=== PATIENT | female | born 1980 | race Caucasian/White ===

== ENCOUNTER 2021-01-11 19:35 | Emergency (ER) | payer OTHER ==
[2021-01-11 19:41] VITALS: TEMP 98.1
[2021-01-11] MEDS ORDERED: ONDANSETRON 4 MG/2 ML VIAL IVP STA (19:49)
[2021-01-11] MEDS ORDERED: SODIUM CHLORIDE 0.9% 500 ML 500 ML IV STA (19:49)
[2021-01-11] MEDS ORDERED: KETOROLAC 15 MG/ML 1 ML VIAL IVP STA (19:49)
[2021-01-11] MEDS ORDERED: PANTOPRAZOLE 40 MG/10 ML VIAL IVP STA (19:49)
[2021-01-11] MEDS ORDERED: SODIUM CHLORIDE 0.9% 1,000 ML IV STA (19:49)
--- NOTE | 2021-01-11 19:50 | ED ---
Abdominal Pain HPI - General Chief Complaint: Abdominal Pain Stated Complaint: ABD pain,Head pain Time Seen by Provider: 01/11/21 19:42 Source: patient Mode of arrival: wheelchair - History of Present Illness Initial Comments: 40-year-old female presents to emergency Department with a chief complaint of acute nausea vomiting. Patient states 2 nights ago she ate not thoroughly cooked pork chops. Patient states she began to develop symptoms several hours after. Patient reports she has been vomiting since then. Reports nausea with multiple episodes of nonbilious vomiting but denies any diarrhea. Also reports epigastric and left upper quadrant abdominal pain after vomiting episodes. She does report a headache from the vomiting is well. She reports decreased appetite and oral intake. She denies any chest pain or shortness of breath. She denies any urinary or vaginal symptoms. - Related Data Home Medications Medication Instructions Recorded Confirmed Acetaminophen Tab [Tylenol Tab] 1,000 mg PO Q6HR PRN 01/11/21 01/11/21 Previous Rx's Medication Instructions Recorded Ondansetron Odt [Zofran Odt] 4 mg PO Q8HR PRN #30 tab 01/11/21 Allergies Allergy/AdvReac Type Severity Reaction Status Date / Time ibuprofen [From Motrin] AdvReac ULCERS Verified 01/11/21 20:11 Review of Systems ROS Statement: Those systems with pertinent positive or pertinent negative responses have been documented in the HPI. ROS Other: All systems not noted in ROS Statement are negative. Past Medical History Past Medical History: No Reported History History of Any Multi-Drug Resistant Organisms: None Reported Additional Past Surgical History / Comment(s): ankle surgery, laparoscopy. Past Psychological History: No Psychological Hx Reported Smoking Status: Current every day smoker Past Alcohol Use History: None Reported Past Drug Use History: None Reported General Exam Limitations: no limitations General appearance: alert, in no apparent distress Head exam: Present: atraumatic, normocephalic, normal inspection Eye exam: Present: normal appearance, PERRL, EOMI Pupils: Present: normal accommodation ENT exam: Present: normal exam, normal oropharynx, mucous membranes moist Neck exam: Present: normal inspection, full ROM. Absent: tenderness, lymphadenopathy Respiratory exam: Present: normal lung sounds bilaterally. Absent: respiratory distress, wheezes, rales Cardiovascular Exam: Present: regular rate, normal rhythm, normal heart sounds. Absent: systolic murmur GI/Abdominal exam: Present: soft, tenderness (Mild, left upper quadrant tendern ess). Absent: distended Extremities exam: Present: normal inspection, full ROM, normal capillary refill. Absent: tenderness Back exam: Present: normal inspection, full ROM Neurological exam: Present: alert, oriented X3 Psychiatric exam: Present: normal affect, normal mood Skin exam: Present: warm, dry, intact, normal color Course Vital Signs 01/11/21 01/11/21 01/11/21 19:37 20:45 21:47 Temperature 98.1 F Pulse Rate 52 L 50 L 57 L Respiratory 18 20 20 Rate Blood Pressure 149/88 140/76 142/76 O2 Sat by Pulse 97 100 100 Oximetry Medical Decision Making - Medical Decision Making 40-year-old male presents to the emergency room with a chief complaint of nausea or vomiting. Physical examination, left upper quadrant tenderness likely secondary to vomiting. Laboratory work shows mild leukocytosis, likely reactive from the vomiting. Patient was given antiemetics, analgesia and IV fluids. On reevaluation, patient reports improvement of symptoms. I will discharge her with Tylenol 3 starter pack and Zofran. I will give her prescriptions for Zofran as well. I suspect food poisoning after eating the uncooked meat. Strict return parameters were thoroughly discussed with patient is an attending agreeable. Case discussed with - Lab Data Result diagrams: 01/11/21 20:00 01/11/21 20:00 Lab Results 01/11/21 01/11/21 01/11/21 Range/Units 20:00 20:00 20:00 WBC 11.0 H (3.8-10.6) k/uL RBC 4.73 (3.80-5.40) m/uL Hgb 15.9 (11.4-16.0) gm/dL Hct 45.1 (34.0-46.0) % MCV 95.4 (80.0-100.0) fL MCH 33.7 (25.0-35.0) pg MCHC 35.3 (31.0-37.0) g/dL RDW 12.2 (11.5-15.5) % Plt Count 219 (150-450) k/uL MPV 8.2 Neutrophils % 66 % Lymphocytes % 27 % Monocytes % 4 % Eosinophils % 2 % Basophils % 1 % Neutrophils # 7.3 (1.3-7.7) k/uL Lymphocytes # 2.9 (1.0-4.8) k/uL Monocytes # 0.4 (0-1.0) k/uL Eosinophils # 0.2 (0-0.7) k/uL Basophils # 0.1 (0-0.2) k/uL Sodium 137 (137-145) mmol/L Potassium 3.7 (3.5-5.1) mmol/L Chloride 107 (98-107) mmol/L Carbon Dioxide 24 (22-30) mmol/L Anion Gap 6 mmol/L BUN 9 (7-17) mg/dL Creatinine 0.69 (0.52-1.04) mg/dL Est GFR (CKD-EPI)AfAm >90 (>60 ml/min/1.73 sqM) Est GFR (CKD-EPI)NonAf >90 (>60 ml/min/1.73 sqM) Glucose 95 (74-99) mg/dL Calcium 9.4 (8.4-10.2) mg/dL Total Bilirubin 0.3 (0.2-1.3) mg/dL AST 21 (14-36) U/L ALT 17 (4-34) U/L Alkaline Phosphatase 62 (38-126) U/L Total Protein 7.4 (6.3-8.2) g/dL Albumin 4.5 (3.5-5.0) g/dL Lipase 48 (23-300) U/L Urine Color Light Yellow Urine Appearance Clear (Clear) Urine pH 7.0 (5.0-8.0) Ur Specific [place] 1.010 (1.001-1.035) Urine Protein Negative (Negative) Urine Glucose (UA) Negative (Negative) Urine Ketones Negative (Negative) Urine Blood Negative (Negative) Urine Nitrite Negative (Negative) Urine Bilirubin Negative (Negative) Urine Urobilinogen <2.0 (<2.0) mg/dL Ur Leukocyte Esterase Negative (Negative) Urine HCG, Qual (Not Detectd) 01/11/21 Range/Units 20:13 WBC (3.8-10.6) k/uL RBC (3.80-5.40) m/uL Hgb (11.4-16.0) gm/dL Hct (34.0-46.0) % MCV (80.0-100.0) fL MCH (25.0-35.0) pg MCHC (31.0-37.0) g/dL RDW (11.5-15.5) % Plt Count (150-450) k/uL MPV Neutrophils % % Lymphocytes % % Monocytes % % Eosinophils % % Basophils % % Neutrophils # (1.3-7.7) k/uL Lymphocytes # (1.0-4.8) k/uL Monocytes # (0-1.0) k/uL Eosinophils # (0-0.7) k/uL Basophils # (0-0.2) k/uL Sodium (137-145) mmol/L Potassium (3.5-5.1) mmol/L Chloride (98-107) mmol/L Carbon Dioxide (22-30) mmol/L Anion Gap mmol/L BUN (7-17) mg/dL Creatinine (0.52-1.04) mg/dL Est GFR (CKD-EPI)AfAm (>60 ml/min/1.73 sqM) Est GFR (CKD-EPI)NonAf (>60 ml/min/1.73 sqM) Glucose (74-99) mg/dL Calcium (8.4-10.2) mg/dL Total Bilirubin (0.2-1.3) mg/dL AST (14-36) U/L ALT (4-34) U/L Alkaline Phosphatase (38-126) U/L Total Protein (6.3-8.2) g/dL Albumin (3.5-5.0) g/dL Lipase (23-300) U/L Urine Color Urine Appearance (Clear) Urine pH (5.0-8.0) Ur Specific [place] (1.001-1.035) Urine Protein (Negative) Urine Glucose (UA) (Negative) Urine Ketones (Negative) Urine Blood (Negative) Urine Nitrite (Negative) Urine Bilirubin (Negative) Urine Urobilinogen (<2.0) mg/dL Ur Leukocyte Esterase (Negative) Urine HCG, Qual Not Detected (Not Detectd) Disposition Clinical Impression: Food poisoning, Nausea & vomiting Disposition: HOME SELF-CARE Condition: Stable Instructions (If sedation given, give patient instructions): Food Poisoning (ED) Additional Instructions: Follow a bananas, rice, applesauce and toast diet if she developed diarrhea. Drink plenty of fluids. Return to emergency department if symptoms worsen. Take prescribed medication as directed. Prescriptions: Ondansetron Odt [Zofran Odt] 4 mg PO Q8HR PRN #30 tab PRN Reason: Nausea Is patient prescribed a controlled substance at d/c from ED?: No Referrals: Nery Pratt DO [Primary Care Provider] - 1-2 days Time of Disposition: 22:10
[2021-01-11] MEDS ORDERED: DICYCLOMINE 10 MG/ML 2 ML AMP IM STA (20:14)
[2021-01-11 20:17] LABS: Appearance,Urine Clear (Clear); Basophils # (A) 0.1 k/uL (0-0.2); Basophils % (A) 1 %; Bilirubin,Urine Negative (Negative); Blood,Urine Negative (Negative); Color,Urine Light Yellow; Eosinophils # (A) 0.2 k/uL (0-0.7); Eosinophils % (A) 2 %; Glucose,Urine (UA) Negative (Negative); HCT 45.1 % (34.0-46.0); HGB 15.9 gm/dL (11.4-16.0); Ketones,Urine Negative (Negative); Leukocyte Esterase,Urine Negative (Negative); Lymphocytes # (A) 2.9 k/uL (1.0-4.8); Lymphocytes % (A) 27 %; MCH 33.7 pg (25.0-35.0); MCHC 35.3 g/dL (31.0-37.0); MCV 95.4 fL (80.0-100.0); Mean Platelet Volume 8.2; Monocytes # (A) 0.4 k/uL (0-1.0); Monocytes % (A) 4 %; Neutrophils # (A) 7.3 k/uL (1.3-7.7); Neutrophils % (A) 66 %; Nitrite,Urine Negative (Negative); Platelet Count 219 k/uL (150-450); Protein,Urine Negative (Negative); RBC 4.73 m/uL (3.80-5.40); RDW 12.2 % (11.5-15.5); Urobilinogen,Urine <2.0 mg/dL (<2.0)
[2021-01-11 20:25] LABS: ALT 17 U/L (4-34); AST 21 U/L (14-36); African American GFR (CKD) >90 (>60 ml/min/1.73 sqM); Albumin 4.5 g/dL (3.5-5.0); Alkaline Phosphatase 62 U/L (38-126); Anion Gap 6 mmol/L; Blood Urea Nitrogen 9 mg/dL (7-17); Calcium 9.4 mg/dL (8.4-10.2); Carbon Dioxide 24 mmol/L (22-30); Chloride 107 mmol/L (98-107); Glucose 95 mg/dL (74-99); Lipase 48 U/L (23-300); Non-African American GFR(CKD) >90 (>60 ml/min/1.73 sqM); Potassium 3.7 mmol/L (3.5-5.1); Sodium 137 mmol/L (137-145); Total Bilirubin 0.3 mg/dL (0.2-1.3); Total Protein 7.4 g/dL (6.3-8.2)
[2021-01-11] MEDS ORDERED: MORPHINE SULFATE 4 MG/ML SYRINGE IVP STA (21:33)
[2021-01-11 21:53] VITALS: RESP 20
[2021-01-11 21:54] VITALS: BP 142/76; PULSE 57
[2021-01-11] MEDS ORDERED: ACET/COD 300 MG/30 MG STARTER PACK 6 TAB BTL PO STA (22:08)
[2021-01-11] MEDS ORDERED: ONDANSETRON 4 MG ODT STARTER PACK 2 TAB BTL PO STA (22:08)
== END 2021-01-11 22:22 | disposition home or self-care (01) ==
LOC: EC 19:35
DX: A05.9 Bacterial foodborne intoxication, unspecified (principal); F17.200 Nicotine dependence, unspecified, uncomplicated
CPT/HCPCS: 36415; 80053; 83690; 85025; 81003; 81025; 99284; 96374; 96375 ×2; 96372; J2270; J0500; J2405; J1885; S0119; C9113

== ENCOUNTER 2021-01-15 20:29 | Emergency (ER) | payer OTHER ==
[2021-01-15] MEDS ORDERED: ONDANSETRON 4 MG/2 ML VIAL IVP STA (20:51)
[2021-01-15] MEDS ORDERED: SODIUM CHLORIDE 0.9% 500 ML 500 ML IV STA ×2 (20:51→21:34)
[2021-01-15] MEDS ORDERED: MORPHINE SULFATE 4 MG/ML SYRINGE IV STA (21:01)
--- NOTE | 2021-01-15 21:07 | ED ---
Abdominal Pain HPI - General Chief Complaint: Abdominal Pain Stated Complaint: abd pain Time Seen by Provider: 01/15/21 20:49 Source: patient Mode of arrival: ambulatory Limitations: no limitations - History of Present Illness Initial Comments: Patient is a 40-year-old woman who presents to be evaluated for diffuse abdominal pain recurred about an hour ago. Patient had been seen here January 11 for similar complaint. She reportedly had eaten pork chops that had not been fully cooked. Patient had been feeling a little better over the past few days but she attempted to go back to her normal diet this evening and had onset of pain about an hour ago. She also has had multiple episodes of nausea and vomiting. No blood or coffee-ground emesis. No change in urination or bowel movements. Patient currently having menstrual cycle. MD Complaint: abdominal pain Onset/Timin -: hour(s) Location: diffuse Radiation: none Severity: severe Quality: cramping, sharp Consistency: colicky Improves With: nothing Worsens With: nothing Associated Symptoms: nausea, vomiting - Related Data LMP (females 10-50): this week Patient : No Home Medications Medication Instructions Recorded Confirmed Acetaminophen Tab [Tylenol Tab] 1,000 mg PO Q6HR PRN 01/11/21 01/15/21 Previous Rx's Medication Instructions Recorded Ondansetron Odt [Zofran Odt] 4 mg PO Q8HR PRN #30 tab 01/11/21 Ondansetron Odt [Zofran ODT] 4 mg PO Q8HR PRN #10 tab 01/15/21 Allergies Allergy/AdvReac Type Severity Reaction Status Date / Time ibuprofen [From Motrin] AdvReac ULCERS Verified 01/15/21 21:51 Review of Systems ROS Statement: Those systems with pertinent positive or pertinent negative responses have been documented in the HPI. ROS Other: All systems not noted in ROS Statement are negative. Constitutional: Denies: fever, chills Respiratory: Denies: cough, dyspnea Cardiovascular: Denies: chest pain, palpitations Gastrointestinal: Reports: abdominal pain, nausea, vomiting. Denies: diarrhea, constipation, hematemesis, melena, hematochezia Genitourinary: Denies: dysuria, hematuria Musculoskeletal: Denies: back pain Skin: Denies: rash Neurological: Denies: headache, weakness, numbness Past Medical History Past Medical History: No Reported History History of Any Multi-Drug Resistant Organisms: None Reported Additional Past Surgical History / Comment(s): ankle surgery, laparoscopy. Past Psychological History: No Psychological Hx Reported Smoking Status: Current every day smoker Past Alcohol Use History: None Reported Past Drug Use History: None Reported General Exam Limitations: no limitations General appearance: alert, in distress Head exam: Present: atraumatic, normocephalic Eye exam: Present: normal appearance. Absent: scleral icterus, conjunctival injection ENT exam: Present: mucous membranes dry Neck exam: Present: normal inspection Respiratory exam: Present: normal lung sounds bilaterally. Absent: respiratory distress, wheezes, rales, rhonchi, stridor Cardiovascular Exam: Present: regular rate, normal rhythm, normal heart sounds. Absent: systolic murmur, diastolic murmur, rubs, gallop GI/Abdominal exam: Present: soft, tenderness. Absent: distended, guarding, rebound, rigid, mass, pulsatile mass, hernia Extremities exam: Present: normal inspection, normal capillary refill. Absent: pedal edema, calf tenderness Back exam: Present: normal inspection. Absent: CVA tenderness (R), CVA tenderness (L) Neurological exam: Present: alert Skin exam: Present: warm, intact, normal color, diaphoretic. Absent: rash Course Vital Signs 01/15/21 01/15/21 20:31 22:59 Temperature 97 F L 97.6 F Pulse Rate 78 58 L Respiratory 16 18 Rate Blood Pressure 159/92 114/71 O2 Sat by Pulse 99 100 Oximetry Medical Decision Making - Lab Data Result diagrams: 01/15/21 21:06 01/15/21 21:06 Lab Results 01/15/21 01/15/21 01/15/21 Range/Units 21:06 21:06 21:06 WBC 12.3 H (3.8-10.6) k/uL RBC 4.69 (3.80-5.40) m/uL Hgb 15.4 (11.4-16.0) gm/dL Hct 45.2 (34.0-46.0) % MCV 96.2 (80.0-100.0) fL MCH 32.9 (25.0-35.0) pg MCHC 34.2 (31.0-37.0) g/dL RDW 13.1 (11.5-15.5) % Plt Count 239 (150-450) k/uL MPV 8.2 Neutrophils % 69 % Lymphocytes % 22 % Monocytes % 5 % Eosinophils % 1 % Basophils % 1 % Neutrophils # 8.4 H (1.3-7.7) k/uL Lymphocytes # 2.7 (1.0-4.8) k/uL Monocytes # 0.6 (0-1.0) k/uL Eosinophils # 0.1 (0-0.7) k/uL Basophils # 0.1 (0-0.2) k/uL Sodium 139 (137-145) mmol/L Potassium 3.4 L (3.5-5.1) mmol/L Chloride 106 (98-107) mmol/L Carbon Dioxide 21 L (22-30) mmol/L Anion Gap 12 mmol/L BUN 12 (7-17) mg/dL Creatinine 0.87 (0.52-1.04) mg/dL Est GFR (CKD-EPI)AfAm >90 (>60 ml/min/1.73 sqM) Est GFR (CKD-EPI)NonAf 83 (>60 ml/min/1.73 sqM) Glucose 119 H (74-99) mg/dL Plasma Lactic Acid [place] 1.8 (0.7-2.0) mmol/L Calcium 10.0 (8.4-10.2) mg/dL Total Bilirubin 0.4 (0.2-1.3) mg/dL AST 26 (14-36) U/L ALT 19 (4-34) U/L Alkaline Phosphatase 63 (38-126) U/L Total Protein 7.6 (6.3-8.2) g/dL Albumin 4.7 (3.5-5.0) g/dL Amylase 73 (30-110) U/L Lipase 47 (23-300) U/L Urine Color Urine Appearance (Clear) Urine pH (5.0-8.0) Ur Specific [place] (1.001-1.035) Urine Protein (Negative) Urine Glucose (UA) (Negative) Urine Ketones (Negative) Urine Blood (Negative) Urine Nitrite (Negative) Urine Bilirubin (Negative) Urine Urobilinogen (<2.0) mg/dL Ur Leukocyte Esterase (Negative) Urine RBC (0-5) /hpf Urine WBC (0-5) /hpf Ur Squamous Epith Cells (0-4) /hpf Urine Bacteria (None) /hpf Urine Mucus (None) /hpf Urine HCG, Qual (Not Detectd) 01/15/21 01/15/21 Range/Units 23:20 23:20 WBC (3.8-10.6) k/uL RBC (3.80-5.40) m/uL Hgb (11.4-16.0) gm/dL Hct (34.0-46.0) % MCV (80.0-100.0) fL MCH (25.0-35.0) pg MCHC (31.0-37.0) g/dL RDW (11.5-15.5) % Plt Count (150-450) k/uL MPV Neutrophils % % Lymphocytes % % Monocytes % % Eosinophils % % Basophils % % Neutrophils # (1.3-7.7) k/uL Lymphocytes # (1.0-4.8) k/uL Monocytes # (0-1.0) k/uL Eosinophils # (0-0.7) k/uL Basophils # (0-0.2) k/uL Sodium (137-145) mmol/L Potassium (3.5-5.1) mmol/L Chloride (98-107) mmol/L Carbon Dioxide (22-30) mmol/L Anion Gap mmol/L BUN (7-17) mg/dL Creatinine (0.52-1.04) mg/dL Est GFR (CKD-EPI)AfAm (>60 ml/min/1.73 sqM) Est GFR (CKD-EPI)NonAf (>60 ml/min/1.73 sqM) Glucose (74-99) mg/dL Plasma Lactic Acid [place] (0.7-2.0) mmol/L Calcium (8.4-10.2) mg/dL Total Bilirubin (0.2-1.3) mg/dL AST (14-36) U/L ALT (4-34) U/L Alkaline Phosphatase (38-126) U/L Total Protein (6.3-8.2) g/dL Albumin (3.5-5.0) g/dL Amylase (30-110) U/L Lipase (23-300) U/L Urine Color Yellow Urine Appearance Clear (Clear) Urine pH 8.0 (5.0-8.0) Ur Specific [place] 1.023 (1.001-1.035) Urine Protein 1+ H (Negative) Urine Glucose (UA) Negative (Negative) Urine Ketones 2+ H (Negative) Urine Blood Large H (Negative) Urine Nitrite Negative (Negative) Urine Bilirubin Negative (Negative) Urine Urobilinogen 2.0 (<2.0) mg/dL Ur Leukocyte Esterase Negative (Negative) Urine RBC 59 H (0-5) /hpf Urine WBC 7 H (0-5) /hpf Ur Squamous Epith Cells 3 (0-4) /hpf Urine Bacteria Rare H (None) /hpf Urine Mucus Rare H (None) /hpf Urine HCG, Qual Not Detected (Not Detectd) Disposition Clinical Impression: Nausea & vomiting, Abdominal pain Disposition: HOME SELF-CARE Condition: Good Instructions (If sedation given, give patient instructions): Abdominal Pain (ED) Prescriptions: Ondansetron Odt [Zofran ODT] 4 mg PO Q8HR PRN #10 tab PRN Reason: Nausea Is patient prescribed a controlled substance at d/c from ED?: No Referrals: Nery Pratt DO [Primary Care Provider] - 1-2 days
[2021-01-15 21:16] LABS: Basophils # (A) 0.1 k/uL (0-0.2); Basophils % (A) 1 %; Eosinophils # (A) 0.1 k/uL (0-0.7); Eosinophils % (A) 1 %; HCT 45.2 % (34.0-46.0); HGB 15.4 gm/dL (11.4-16.0); Lymphocytes # (A) 2.7 k/uL (1.0-4.8); Lymphocytes % (A) 22 %; MCH 32.9 pg (25.0-35.0); MCHC 34.2 g/dL (31.0-37.0); MCV 96.2 fL (80.0-100.0); Mean Platelet Volume 8.2; Monocytes # (A) 0.6 k/uL (0-1.0); Monocytes % (A) 5 %; Neutrophils # (A) 8.4 k/uL (1.3-7.7); Neutrophils % (A) 69 %; Platelet Count 239 k/uL (150-450); RBC 4.69 m/uL (3.80-5.40); RDW 13.1 % (11.5-15.5); WBC 12.3 k/uL (3.8-10.6)
[2021-01-15 21:25] LABS: ALT 19 U/L (4-34); AST 26 U/L (14-36); African American GFR (CKD) >90 (>60 ml/min/1.73 sqM); Albumin 4.7 g/dL (3.5-5.0); Alkaline Phosphatase 63 U/L (38-126); Amylase 73 U/L (30-110); Anion Gap 12 mmol/L; Blood Urea Nitrogen 12 mg/dL (7-17); Carbon Dioxide 21 mmol/L (22-30); Chloride 106 mmol/L (98-107); Glucose 119 mg/dL (74-99); Lipase 47 U/L (23-300); Non-African American GFR(CKD) 83 (>60 ml/min/1.73 sqM); Potassium 3.4 mmol/L (3.5-5.1); Sodium 139 mmol/L (137-145); Total Bilirubin 0.4 mg/dL (0.2-1.3); Total Protein 7.6 g/dL (6.3-8.2)
[2021-01-15] MEDS ORDERED: HYDROmorphone 0.5 MG/0.5 ML SYRINGE IVP STA (21:34)
[2021-01-15] MEDS ORDERED: METOCLOPRAMIDE 5 MG/ML 2 ML VIAL IVP STA (21:34)
--- NOTE | 2021-01-15 22:40 | CT ---
EXAMINATION TYPE: CT abdomen pelvis wo con DATE OF EXAM: 01/15/2021 COMPARISON: None HISTORY: vomiting CT DLP: 866.3 mGycm Automated exposure control for dose reduction was used. Images obtained from the diaphragm to the floor the pelvis without contrast. Lung bases are clear. There is no pleural effusion. Heart size is normal. There is no pericardial eff usion. Liver spleen stomach pancreas gallbladder appear intact. The bile ducts are not dilated. There is no adrenal mass. Kidneys have normal size. There is no hydronephrosis. There is 2 mm calculu s interpolar left kidney. Ureters are not dilated. There is no retroperitoneal adenopathy. Bladder di stends smoothly. There is retroverted uterus. There is no free fluid in the pelvis. There are sigmoid diverticula without sign of diverticulitis. There is some air in the appendix which appears normal. There is no mesenteric edema. There is no asc ites or free air. There is no sign of a bowel obstruction. The lumbar vertebra have normal alignment. Posterior elements are intact. There is no compression fra cture. Bony pelvis is intact. The hip joints are intact. There is no hip dysplasia. IMPRESSION: Normal appendix. Nonobstructing left renal calculus. Sigmoid diverticulosis without diverticulitis.
[2021-01-15 23:09] VITALS: BP 114/71; PULSE 58; RESP 18; TEMP 97.6
[2021-01-15 23:39] LABS: Appearance,Urine Clear (Clear); Bacteria,Urine Rare /hpf; Bilirubin,Urine Negative (Negative); Blood,Urine Large (Negative); Color,Urine Yellow; Glucose,Urine (UA) Negative (Negative); Ketones,Urine 2+ (Negative); Leukocyte Esterase,Urine Negative (Negative); Mucus,Urine Rare /hpf; Nitrite,Urine Negative (Negative); Protein,Urine 1+ (Negative); RBC,Urine 59 /hpf (0-5); Specific Gravity,Urine 1.023 (1.001-1.035); Squamous Epithelial Cell,Urine 3 /hpf (0-4); WBC,Urine 7 /hpf (0-5)
[2021-01-16] MEDS ORDERED: traMADol 50 MG STARTER PACK 3 TAB BTL PO STA (00:04)
== END 2021-01-16 00:19 | disposition home or self-care (01) ==
LOC: EC 20:29
DX: R10.9 Unspecified abdominal pain (principal); R11.10 Vomiting, unspecified; F17.200 Nicotine dependence, unspecified, uncomplicated
CPT/HCPCS: 36415; 80053; 82150; 83605; 83690; 85025; 81001; 81025; 74176; 99284; 96374; 96375 ×3; 96361; J2270; J2765; J2405; J1170

== ENCOUNTER 2021-09-18 06:04 | Emergency (ER) | payer OTHER ==
[2021-09-18] MEDS ORDERED: KETOROLAC 15 MG/ML 1 ML VIAL IM STA (06:35)
[2021-09-18] MEDS ORDERED: ONDANSETRON ODT 4 MG TAB PO STA (06:36)
[2021-09-18] MEDS ORDERED: SODIUM CHLORIDE 0.9% 1,000 ML IV STA ×2 (07:42→09:11)
[2021-09-18] MEDS ORDERED: diphenhydrAMINE 50 MG/ML 1 ML VIAL IVP STA (07:42)
[2021-09-18] MEDS ORDERED: MORPHINE SULFATE 4 MG/ML SYRINGE IV STA (07:42)
[2021-09-18] MEDS ORDERED: METOCLOPRAMIDE 5 MG/ML 2 ML VIAL IVP STA (07:42)
[2021-09-18] MEDS ORDERED: FAMOTIDINE 20 MG/2 ML VIAL IV STA (07:43)
[2021-09-18 08:14] LABS: Basophils % (A) 0 %; Eosinophils # (A) 0.1 k/uL (0-0.7); Eosinophils % (A) 1 %; HCT 43.8 % (34.0-46.0); HGB 14.9 gm/dL (11.4-16.0); Lymphocytes # (A) 1.7 k/uL (1.0-4.8); Lymphocytes % (A) 10 %; MCH 32.8 pg (25.0-35.0); MCHC 34.1 g/dL (31.0-37.0); MCV 96.2 fL (80.0-100.0); Mean Platelet Volume 8.4; Monocytes # (A) 0.5 k/uL (0-1.0); Monocytes % (A) 3 %; Neutrophils # (A) 14.1 k/uL (1.3-7.7); Neutrophils % (A) 85 %; Platelet Count 288 k/uL (150-450); RBC 4.55 m/uL (3.80-5.40); RDW 12.2 % (11.5-15.5); WBC 16.6 k/uL (3.8-10.6)
[2021-09-18 08:22] LABS: HCG,Qualitative Serum Detected
--- NOTE | 2021-09-18 08:23 | XR ---
EXAMINATION TYPE: XR KUB DATE OF EXAM: 09/18/2021 COMPARISON: NONE HISTORY: Pain TECHNIQUE: One view abdominal series FINDINGS: The osseous structures are intact. The bowel gas pattern is nonspecific. Extensive retained fecal de bris throughout the colon. Lung bases clear. No suspicious calcifications overlying the renal outline . Arthropathy of the hips correlate for femoral acetabular impingement. IMPRESSION: 1. Nonspecific abdomen correlate for constipation.
[2021-09-18 08:25] LABS: INR 0.9 (<1.2); Partial Thromboplastin Time 22.5 sec (22.0-30.0); Prothrombin Time 10.2 sec (9.0-12.0)
[2021-09-18 08:28] LABS: ALT 16 U/L (4-34); AST 20 U/L (14-36); African American GFR (CKD) >90 (>60 ml/min/1.73 sqM); Albumin 4.3 g/dL (3.5-5.0); Alkaline Phosphatase 63 U/L (38-126); Amylase 67 U/L (30-110); Anion Gap 7 mmol/L; Blood Urea Nitrogen 11 mg/dL (7-17); Calcium 9.4 mg/dL (8.4-10.2); Carbon Dioxide 19 mmol/L (22-30); Chloride 110 mmol/L (98-107); Glucose 156 mg/dL (74-99); Lipase 84 U/L (23-300); Non-African American GFR(CKD) >90 (>60 ml/min/1.73 sqM); Potassium 3.7 mmol/L (3.5-5.1); Sodium 136 mmol/L (137-145); Total Bilirubin 0.9 mg/dL (0.2-1.3); Total Protein 7.4 g/dL (6.3-8.2)
--- NOTE | 2021-09-18 08:58 | ED ---
General Adult HPI - General Chief complaint: Abdominal Pain Stated complaint: Abd Pain Time Seen by Provider: 09/18/21 07:36 Source: patient, family, RN notes reviewed, old records reviewed Mode of arrival: wheelchair Limitations: no limitations - History of Present Illness Initial comments: Patient is a 41-year-old female with no syncope past medical history presents emergency Department complaining of acute onset of right lower quadrant abdominal pain associated with nonbilious nonbloody emesis. States it started approximately 3 or 4 AM. Describes it as sharp, achy in the right lower quadrant. Has not expenses pain previously. Does have a history of ovarian cysts. States it has been constant since she woke. Denies any diarrhea or concern for constipation. States she is currently on her period and having some mild vaginal bleeding. Denies any vaginal discharge. Does endorse some mild dysuria. Has no other acute complaints at this time. States she is not . No fevers or chills or sick contacts. He presents over concern for her abdominal pain. Denies any back pain. Does have a history possibly of an old kidney stone. - Related Data Previous Rx's Medication Instructions Recorded Methocarbamol [Robaxin-750] 750 mg PO BID PRN 5 Days #10 tablet 09/18/21 Ondansetron Odt [Zofran Odt] 4 mg PO Q8HR PRN #3 tab 09/18/21 [id number]/Iron/FA/O3/Dha/Epa/Fish 1 each PO DAILY #28 capsule 09/18/21 [ Multi-Dha Softgel] Allergies Allergy/AdvReac Type Severity Reaction Status Date / Time ibuprofen [From Motrin] AdvReac ULCERS Verified 09/18/21 10:33 Review of Systems ROS Statement: Those systems with pertinent positive or pertinent negative responses have been documented in the HPI. Review of Systems: CONST: Denies fever EYES: Denies blurry vision ENT: Denies nasal congestion C/V: Denies Chest pain RESP: Denies shortness of breath GI: Endorses abdominal pain : Denies dysuria SKIN: Denies rash. MSK: Denies joint pain. NEURO: Denies headache ROS Other: All systems not noted in ROS Statement are negative. Past Medical History Past Medical History: No Reported History History of Any Multi-Drug Resistant Organisms: None Reported Additional Past Surgical History / Comment(s): ankle surgery, laparoscopy. Past Psychological History: No Psychological Hx Reported Smoking Status: Current every day smoker Past Alcohol Use History: None Reported Past Drug Use History: None Reported General Exam - General Exam Comments Initial Comments: General: Appears in mild to moderate distress secondary to abdominal pain HEAD: Normal with no signs of head trauma. EYES: PERRLA, EOMI, conjunctiva normal, no discharge. ENT: Hearing grossly intact, normal oropharynx. RESPIRATORY: Clear breath sounds bilaterally. No wheezes, rales, or rhonchi. C/V: Regular rate and rhythm. S1 and S2 auscultated, no edema, peripheral pulses 2+ and intact throughout ABD: Abdomen is soft, nondistended. Patient is tender to palpation in the right lower quadrant. Little more superior to McBurney's point. No CVA tenderness to percussion. No guarding. No peritoneal signs. No rebound tenderness. EXT: Normal range of motion, no obvious deformity SKIN: No rashes or lesions observed on exposed skin. NEURO: Alert and oriented 4. No focal deficits. Limitations: no limitations Course Vital Signs 09/18/21 09/18/21 06:13 11:00 Temperature 98 F Pulse Rate 60 88 Respiratory 22 18 Rate Blood Pressure 148/98 98/54 O2 Sat by Pulse 96 98 Oximetry Medical Decision Making - Medical Decision Making Based on patient's presentation and physical exam, I'm concerned for acute intra-abdominal process for current symptoms. We'll obtain abdominal laboratory studies, as well as urine studies. We'll start with ultrasounds of the pelvis, and kidneys to evaluate for hydronephrosis or signs of renal stone as well as to evaluate for signs of ovarian torsion. She was in agreement this plan. She was symptomatically treated with a GI cocktail as well as IV morphine and 1 L fluid bolus. Laboratory studies are remarkable for mild leukocytosis of 16 which could be reactive. Lactic acid is 2.2 which is slightly elevated likely secondary dehyd ration from her nausea and vomiting. Beta-hCG is positive. I did update the patient with positive test. We will send a quantitative hCG. I will also add on a new ultrasound, she is having vaginal bleeding. She was in agreement this plan. she is resting comfortably in bed at this time.Remainder the laboratory studies are remarkable for a repeat lactic acid within normal limits at 1.2. Urinalysis shows dehydration but no signs of acute infection. Quantitative beta hCG is elevated 234. Abdominal x-ray was obtained prior to and see results. Showed nonspecific findings. Ultrasound of the bladder and kidneys revealed a tiny nonobstructing left renal calculus but nothing on the right. Appendicitis ultrasound revealed no sign of appendicitis. Appendix jewel ot be visualized. Pelvic ultrasound revealed no definitive IUP. Recommend a follow-up ultrasound as well as following up on the beta-hCG. There is also a signs consistent with a large fibroid on the right as well. Reevaluation, we discussed the ultrasound findings as well as results for laboratory studies. She is tolerating oral intake. She would like to go home. And is under control. I believe this is reasonable with close follow-up with her [facility]. They called while she was waiting in the department and have an appointment for 2 days from now. Strict return precautions for the patient. She was in agreement this plan. We discussed her diagnosis of threatened miscarriage, and she understands the need to obtain repeat beta hCG lavatory studies as well as repeat ultrasound imaging moving forward to confirm definitive IUP versus ectopic. Patient was in agreement this plan. I will provide the patient with a prescription for ODT Zofran, Robaxin, vitamins. I instructed the patient to follow up with their PCP in the next 3 days. I explained that the patient should return to the emergency department if they experience any worsening symptoms. Strict return precautions were discussed with the patient. The patient expressed understanding of these instructions. I answered all questions that the patient had. The patient was discharged home in good condition with their prescriptions and follow up information. - Lab Data Result diagrams: 09/18/21 08:00 09/18/21 08:00 Lab Results 09/18/21 09/18/21 09/18/21 Range/Units 08:00 08:00 08:00 WBC 16.6 H (3.8-10.6) k/uL RBC 4.55 (3.80-5.40) m/uL Hgb 14.9 (11.4-16.0) gm/dL Hct 43.8 (34.0-46.0) % MCV 96.2 (80.0-100.0) fL MCH 32.8 (25.0-35.0) pg MCHC 34.1 (31.0-37.0) g/dL RDW 12.2 (11.5-15.5) % Plt Count 288 (150-450) k/uL MPV 8.4 Neutrophils % 85 % Lymphocytes % 10 % Monocytes % 3 % Eosinophils % 1 % Basophils % 0 % Neutrophils # 14.1 H (1.3-7.7) k/uL Lymphocytes # 1.7 (1.0-4.8) k/uL Monocytes # 0.5 (0-1.0) k/uL Eosinophils # 0.1 (0-0.7) k/uL Basophils # 0.0 (0-0.2) k/uL PT 10.2 (9.0-12.0) sec INR 0.9 (<1.2) APTT 22.5 (22.0-30.0) sec Sodium (137-145) mmol/L Potassium (3.5-5.1) mmol/L Chloride (98-107) mmol/L Carbon Dioxide (22-30) mmol/L Anion Gap mmol/L BUN (7-17) mg/dL Creatinine (0.52-1.04) mg/dL Est GFR (CKD-EPI)AfAm (>60 ml/min/1.73 sqM) Est GFR (CKD-EPI)NonAf (>60 ml/min/1.73 sqM) Glucose (74-99) mg/dL Lactic Ac Sepsis Rflx Plasma Lactic Acid Chandrakant (0.7-2.0) mmol/L Calcium (8.4-10.2) mg/dL Total Bilirubin (0.2-1.3) mg/dL AST (14-36) U/L ALT (4-34) U/L Alkaline Phosphatase (38-126) U/L Total Protein (6.3-8.2) g/dL Albumin (3.5-5.0) g/dL Amylase (30-110) U/L Lipase (23-300) U/L HCG, Qual HCG, Quant mIU/mL Urine Color Yellow Urine Appearance Clear (Clear) Urine pH 7.0 (5.0-8.0) Ur Specific [place] 1.022 (1.001-1.035) Urine Protein Trace H (Negative) Urine Glucose (UA) 1+ H (Negative) Urine Ketones 2+ H (Negative) Urine Blood Large H (Negative) Urine Nitrite Negative (Negative) Urine Bilirubin Negative (Negative) Urine Urobilinogen <2.0 (<2.0) mg/dL Ur Leukocyte Esterase Negative (Negative) Urine RBC <1 (0-5) /hpf Urine WBC 1 (0-5) /hpf Ur Squamous Epith Cells <1 (0-4) /hpf Amorphous Sediment Occasional H (None) /hpf Urine Mucus Occasional H (None) /hpf 09/18/21 09/18/21 09/18/21 Range/Units 08:00 08:00 08:00 WBC (3.8-10.6) k/uL RBC (3.80-5.40) m/uL Hgb (11.4-16.0) gm/dL Hct (34.0-46.0) % MCV (80.0-100.0) fL MCH (25.0-35.0) pg MCHC (31.0-37.0) g/dL RDW (11.5-15.5) % Plt Count (150-450) k/uL MPV Neutrophils % % Lymphocytes % % Monocytes % % Eosinophils % % Basophils % % Neutrophils # (1.3-7.7) k/uL Lymphocytes # (1.0-4.8) k/uL Monocytes # (0-1.0) k/uL Eosinophils # (0-0.7) k/uL Basophils # (0-0.2) k/uL PT (9.0-12.0) sec INR (<1.2) APTT (22.0-30.0) sec Sodium 136 L (137-145) mmol/L Potassium 3.7 (3.5-5.1) mmol/L Chloride 110 H (98-107) mmol/L Carbon Dioxide 19 L (22-30) mmol/L Anion Gap 7 mmol/L BUN 11 (7-17) mg/dL Creatinine 0.80 (0.52-1.04) mg/dL Est GFR (CKD-EPI)AfAm >90 (>60 ml/min/1.73 sqM) Est GFR (CKD-EPI)NonAf >90 (>60 ml/min/1.73 sqM) Glucose 156 H (74-99) mg/dL Lactic Ac Sepsis Rflx Plasma Lactic Acid [place] 2.2 H* (0.7-2.0) mmol/L Calcium 9.4 (8.4-10.2) mg/dL Total Bilirubin 0.9 (0.2-1.3) mg/dL AST 20 (14-36) U/L ALT 16 (4-34) U/L Alkaline Phosphatase 63 (38-126) U/L Total Protein 7.4 (6.3-8.2) g/dL Albumin 4.3 (3.5-5.0) g/dL Amylase 67 (30-110) U/L Lipase 84 (23-300) U/L HCG, Qual Detected HCG, Quant 234.4 mIU/mL Urine Color Urine Appearance (Clear) Urine pH (5.0-8.0) Ur Specific [place] (1.001-1.035) Urine Protein (Negative) Urine Glucose (UA) (Negative) Urine Ketones (Negative) Urine Blood (Negative) Urine Nitrite (Negative) Urine Bilirubin (Negative) Urine Urobilinogen (<2.0) mg/dL Ur Leukocyte Esterase (Negative) Urine RBC (0-5) /hpf Urine WBC (0-5) /hpf Ur Squamous Epith Cells (0-4) /hpf Amorphous Sediment (None) /hpf Urine Mucus (None) /hpf 09/18/21 09/18/21 Range/Units 08:39 10:53 WBC (3.8-10.6) k/uL RBC (3.80-5.40) m/uL Hgb (11.4-16.0) gm/dL Hct (34.0-46.0) % MCV (80.0-100.0) fL MCH (25.0-35.0) pg MCHC (31.0-37.0) g/dL RDW (11.5-15.5) % Plt Count (150-450) k/uL MPV Neutrophils % % Lymphocytes % % Monocytes % % Eosinophils % % Basophils % % Neutrophils # (1.3-7.7) k/uL Lymphocytes # (1.0-4.8) k/uL Monocytes # (0-1.0) k/uL Eosinophils # (0-0.7) k/uL Basophils # (0-0.2) k/uL PT (9.0-12.0) sec INR (<1.2) APTT (22.0-30.0) sec Sodium (137-145) mmol/L Potassium (3.5-5.1) mmol/L Chloride (98-107) mmol/L Carbon Dioxide (22-30) mmol/L Anion Gap mmol/L BUN (7-17) mg/dL Creatinine (0.52-1.04) mg/dL Est GFR (CKD-EPI)AfAm (>60 ml/min/1.73 sqM) Est GFR (CKD-EPI)NonAf (>60 ml/min/1.73 sqM) Glucose (74-99) mg/dL Lactic Ac Sepsis Rflx Y Plasma Lactic Acid [place] 1.2 (0.7-2.0) mmol/L Calcium (8.4-10.2) mg/dL Total Bilirubin (0.2-1.3) mg/dL AST (14-36) U/L ALT (4-34) U/L Alkaline Phosphatase (38-126) U/L Total Protein (6.3-8.2) g/dL Albumin (3.5-5.0) g/dL Amylase (30-110) U/L Lipase (23-300) U/L HCG, Qual HCG, Quant mIU/mL Urine Color Urine Appearance (Clear) Urine pH (5.0-8.0) Ur Specific [place] (1.001-1.035) Urine Protein (Negative) Urine Glucose (UA) (Negative) Urine Ketones (Negative) Urine Blood (Negative) Urine Nitrite (Negative) Urine Bilirubin (Negative) Urine Urobilinogen (<2.0) mg/dL Ur Leukocyte Esterase (Negative) Urine RBC (0-5) /hpf Urine WBC (0-5) /hpf Ur Squamous Epith Cells (0-4) /hpf Amorphous Sediment (None) /hpf Urine Mucus (None) /hpf Disposition Clinical Impression: Threatened , Abdominal pain, Dehydration, Nausea and vomiting, Disposition: HOME SELF-CARE Condition: Good Instructions (If sedation given, give patient instructions): Threatened Miscarriage (ED), (ED) Prescriptions: [id number]/Iron/FA/O3/Dha/Epa/Fish [ Multi-Dha Softgel] 1 each PO DAILY #28 capsule Methocarbamol [Robaxin-750] 750 mg PO BID PRN 5 Days #10 tablet PRN Reason: Pain Ondansetron Odt [Zofran Odt] 4 mg PO Q8HR PRN #3 tab PRN Reason: Nausea Is patient prescribed a controlled substance at d/c from ED?: No Referrals: None,Stated [Primary Care Provider] - 1-2 days
--- NOTE | 2021-09-18 09:26 | US ---
EXAMINATION TYPE: US kidneys/renal and bladder DATE OF EXAM: 09/18/2021 COMPARISON: CT CLINICAL HISTORY: eval for hydronephrosis/signs of nephrolithiasis. RLQ pain EXAM MEASUREMENTS: Right Kidney: 10.8 x 4.9 x 4.8 cm Left Kidney: 11.2 x 5.4 x 5.2 cm Right Kidney: Renal pelvis= 1.4 cm, otherwise unremarkable Left Kidney: Limited views due to overlying bowel gas, no evidence of hydro, possible 3mm calculi upp er pole Bladder: wnl Bilateral Jets seen: No IMPRESSION: 1. prominent extrarenal pelvis on the right. 2. Findings are compatible with a tiny nonobstructing left renal calculus measuring 3
--- NOTE | 2021-09-18 09:27 | US ---
EXAMINATION TYPE: US abdomen APPY DATE OF EXAM: 09/18/2021 COMPARISON: CT CLINICAL HISTORY: RLQ pain. RLQ pain APPENDIX UNable to visualize appendix IMPRESSION: Nondiagnostic assessment for appendicitis
--- NOTE | 2021-09-18 09:42 | US ---
EXAMINATION TYPE: Transabdominal DATE OF EXAM: 09/18/2021 9:22 AM COMPARISON: NONE CLINICAL HISTORY: New , possible miscarriage. RLQ pain, + urine HCG in EC EXAM PERFORMED: Transabdominal (TA) EXAM MEASUREMENTS: GESTATIONAL AGE / DATING Physician Established: Not yet established Dates by LMP: Pt states she started menses today 09/18/21 Dates by First Scan: No previous this is first scan Dates by Current Scan for: No IUP seen at this time MATERNAL ANATOMY Uterus: 8.2 x 4.8 x 6.1 cm Right Ovary: 3.4 x 2.3 x 2.4 cm Left Ovary: 2.3 x 1.9 x 1.6 cm Post CDS / Adnexa: wnl Presence of free fluid: No Presence of corpus luteal cyst: Right Ovary= 1.7 x 1.4 x 1.5 cm GESTATION / SURVEY IUP: No IUP seen at this time, Endo thickness= 0.8 cm Date of LMP: Today 09/18/21 Beta HcG (if available): Not available at this time No IUP visualized at this time, endo thickness= 0.8 cm, Ovaries wnl, Solid, pedunculated mass poste rior fundus of uterus= 7.2 x 5.3 x 6.1 cm- possibly representing fibroid given pt's positive urine HC G IMPRESSION: 1. No intrauterine identified. If the patient is beta hCG positive than the Differential di agnosis would include a normal too early to detect, missed. Ectopic cannot be exc luded particularly given the presence of a 1.7 cm right ovarian cyst. Correlate with serial pelvic ul trasound and beta hCG as clinically warranted. 2. Pedunculated 7.2 cm mass extending off the uterus is nonspecific but most typical of a large fibro id. Correlate with MRI as clinically warranted to exclude other etiologies.
[2021-09-18 11:07] LABS: Amorphous Sediment,Urine Occasional /hpf; Appearance,Urine Clear (Clear); Bilirubin,Urine Negative (Negative); Blood,Urine Large (Negative); Color,Urine Yellow; Glucose,Urine (UA) 1+ (Negative); Leukocyte Esterase,Urine Negative (Negative); Mucus,Urine Occasional /hpf; Nitrite,Urine Negative (Negative); Protein,Urine Trace (Negative); RBC,Urine <1 /hpf (0-5); Specific Gravity,Urine 1.022 (1.001-1.035); Squamous Epithelial Cell,Urine <1 /hpf (0-4); Urobilinogen,Urine <2.0 mg/dL (<2.0); WBC,Urine 1 /hpf (0-5)
[2021-09-18 11:21] VITALS: RESP 18
[2021-09-18 11:42] LABS: Ketones,Urine 2+ (Negative)
[2021-09-18] MEDS ORDERED: MORPHINE SULFATE 4 MG/ML SYRINGE IVP STA (11:55)
[2021-09-18 13:00] VITALS: BP 115/78; PULSE 81; TEMP 98.2
== END 2021-09-18 12:56 | disposition home or self-care (01) ==
LOC: EC 06:04
DX: O20.0 Threatened abortion (principal); E86.0 Dehydration; R11.2 Nausea with vomiting, unspecified; F17.200 Nicotine dependence, unspecified, uncomplicated; Z3A.00 Weeks of gestation of pregnancy not specified; Z88.6 Allergy status to analgesic agent
CPT/HCPCS: 99284; 96374; 96375 ×3; 96376; 96361 ×2; 96372; 36415; 80053; 82150; 83605; 83690; 85025; 85610; 85730; 81001; 84703; 84702; 74018; 76705; 76801; 76770; J2270; J1200; J2765; J1885

== ENCOUNTER 2021-09-26 16:51 | Emergency (ER) | payer OTHER ==
[2021-09-26] MEDS ORDERED: MORPHINE SULFATE 4 MG/ML SYRINGE IVP STA ×2 (20:08→23:07)
[2021-09-26 21:05] LABS: Basophils # (A) 0.1 k/uL (0-0.2); Basophils % (A) 1 %; Eosinophils # (A) 0.1 k/uL (0-0.7); Eosinophils % (A) 1 %; HCT 43.7 % (34.0-46.0); HGB 14.4 gm/dL (11.4-16.0); Lymphocytes # (A) 2.4 k/uL (1.0-4.8); Lymphocytes % (A) 30 %; MCH 31.9 pg (25.0-35.0); MCHC 32.9 g/dL (31.0-37.0); Mean Platelet Volume 8.5; Monocytes # (A) 0.4 k/uL (0-1.0); Monocytes % (A) 5 %; Neutrophils # (A) 5.1 k/uL (1.3-7.7); Neutrophils % (A) 62 %; Platelet Count 251 k/uL (150-450); RBC 4.51 m/uL (3.80-5.40); RDW 11.8 % (11.5-15.5); WBC 8.2 k/uL (3.8-10.6)
[2021-09-26 21:14] LABS: INR 0.9 (<1.2); Partial Thromboplastin Time 24.3 sec (22.0-30.0)
--- NOTE | 2021-09-26 21:17 | ED ---
Abdominal Pain HPI - General Chief Complaint: Abdominal Pain Stated Complaint: Abd pain(Preg,unsure how far along)-sent by OBGYN Time Seen by Provider: 09/26/21 19:46 Source: patient Mode of arrival: wheelchair Limitations: no limitations - History of Present Illness Initial Comments: Patient is a 41-year-old female who presents with a chief complaint of abdominal pain and vaginal bleeding. Patient was evaluated here on 09/18/21 for abdominal pain and mild vaginal bleeding. At this time patient was found to be which she was not aware of. Patient is a A2. Serum beta HCG was 234.4. IUP was not visualized and miscarriage/ectopic could not be ruled out. Patient states she was evaluated by [facility] emergency Department on 09/20 and 09/22 for similar symptoms. She states serum beta hCG was ~500 and ~200, respectively. Patient states that the ultrasound non diagnostic at both of these emergency visits. Patient spoke with her CARE ADMINISTRATIVE TECH today due to increased abdominal pain who told patient to come here. Patient is unsure who she talked to but spoke to a provider at [facility]. The pain is located in the right lower quadrant, constant and aching in nature with radiation to the lower pelvic region. Patient does have a 1.7 cm right ovarian cyst and possible fibroid previously diagnosed on ultrasound. Patient states her vaginal bleeding has been consistent. She states she is not using pads but consistently sees blood on the toilet paper when she wipes after urination. She denies any clots. She denies fever, chills, shortness of breath, chest pain, nausea, and vomiting. - Related Data Previous Rx's Medication Instructions Recorded Methocarbamol [Robaxin-750] 750 mg PO BID PRN 5 Days #10 tablet 09/18/21 Ondansetron Odt [Zofran Odt] 4 mg PO Q8HR PRN #3 tab 09/18/21 Nhn225/Iron/FA/O3/Dha/Epa/Fish 1 each PO DAILY #28 capsule 09/18/21 [ Multi-Dha Softgel] HYDROcodone/APAP 10-325MG [[place] 1 tab PO Q4-6H PRN 5 Days #20 tab 09/26/21 10-325] Allergies Allergy/AdvReac Type Severity Reaction Status Date / Time ibuprofen [From Motrin] AdvReac ULCERS Verified 09/26/21 18:03 Review of Systems ROS Statement: Those systems with pertinent positive or pertinent negative responses have been documented in the HPI. ROS Other: All systems not noted in ROS Statement are negative. Past Medical History Past Medical History: No Reported History History of Any Multi-Drug Resistant Organisms: None Reported Additional Past Surgical History / Comment(s): ankle surgery, laparoscopy. Past Psychological History: No Psychological Hx Reported Smoking Status: Current every day smoker Past Alcohol Use History: Occasional Past Drug Use History: None Reported General Exam Limitations: no limitations General appearance: alert, in no apparent distress Head exam: Present: atraumatic, normocephalic, normal inspection Respiratory exam: Present: normal lung sounds bilaterally. Absent: respiratory distress, wheezes, rales, rhonchi, stridor Cardiovascular Exam: Present: regular rate, normal rhythm, normal heart sounds. Absent: systolic murmur, diastolic murmur, rubs, gallop, clicks GI/Abdominal exam: Present: soft, tenderness (Right lower quadrant). Absent: distended Course Vital Signs 09/26/21 18:03 Temperature 97.5 F L Pulse Rate 67 Respiratory 20 Rate Blood Pressure 127/78 O2 Sat by Pulse 98 Oximetry Medical Decision Making - Medical Decision Making This is a pleasant 41-year-old female who presents with abdominal pain and vaginal bleeding. Thorough history and examination were performed. Patient is hemodynamically stable. Right lower quadrant is mildly tender to palpation. Free fluid is not suspected. Hemoglobin is within normal limits at 14.4. Serum beta hCG is 307.3. IUP could not be visualized on ultrasound and a hypoechoic area was seen in the right adnexa, adjacent to the right ovary. Morphine was given for pain. Results were discussed with OBGYN Dr. Vazquez who instructed to give patient a dose of methotrexate and discharge her with strict return parameters. Methotrexate was given. Patient was given a prescription for repeat serum beta hCG on Thursday. I prescribed a short course of [place] for pain. I discussed return parameters with patient and patient's . They verbalize understanding and are agreeable to plan. Dr. Oconnor is my attending. - Lab Data Result diagrams: 09/26/21 20:53 09/26/21 20:53 Lab Results 09/26/21 09/26/21 09/26/21 Range/Units 20:50 20:53 20:53 WBC 8.2 (3.8-10.6) k/uL RBC 4.51 (3.80-5.40) m/uL Hgb 14.4 (11.4-16.0) gm/dL Hct 43.7 (34.0-46.0) % MCV 97.0 (80.0-100.0) fL MCH 31.9 (25.0-35.0) pg MCHC 32.9 (31.0-37.0) g/dL RDW 11.8 (11.5-15.5) % Plt Count 251 (150-450) k/uL MPV 8.5 Neutrophils % 62 % Lymphocytes % 30 % Monocytes % 5 % Eosinophils % 1 % Basophils % 1 % Neutrophils # 5.1 (1.3-7.7) k/uL Lymphocytes # 2.4 (1.0-4.8) k/uL Monocytes # 0.4 (0-1.0) k/uL Eosinophils # 0.1 (0-0.7) k/uL Basophils # 0.1 (0-0.2) k/uL PT 10.0 (9.0-12.0) sec INR 0.9 (<1.2) APTT 24.3 (22.0-30.0) sec Sodium (137-145) mmol/L Potassium (3.5-5.1) mmol/L Chloride (98-107) mmol/L Carbon Dioxide (22-30) mmol/L Anion Gap mmol/L BUN (7-17) mg/dL Creatinine (0.52-1.04) mg/dL Est GFR (CKD-EPI)AfAm (>60 ml/min/1.73 sqM) Est GFR (CKD-EPI)NonAf (>60 ml/min/1.73 sqM) Glucose (74-99) mg/dL Calcium (8.4-10.2) mg/dL Total Bilirubin (0.2-1.3) mg/dL AST (14-36) U/L ALT (4-34) U/L Alkaline Phosphatase (38-126) U/L Total Protein (6.3-8.2) g/dL Albumin (3.5-5.0) g/dL Lipase (23-300) U/L HCG, Quant mIU/mL Blood Type O Positive Blood Type Recheck No Previous Record Bld Type Recheck Status [facility] ONLY 09/26/21 Range/Units 20:53 WBC (3.8-10.6) k/uL RBC (3.80-5.40) m/uL Hgb (11.4-16.0) gm/dL Hct (34.0-46.0) % MCV (80.0-100.0) fL MCH (25.0-35.0) pg MCHC (31.0-37.0) g/dL RDW (11.5-15.5) % Plt Count (150-450) k/uL MPV Neutrophils % % Lymphocytes % % Monocytes % % Eosinophils % % Basophils % % Neutrophils # (1.3-7.7) k/uL Lymphocytes # (1.0-4.8) k/uL Monocytes # (0-1.0) k/uL Eosinophils # (0-0.7) k/uL Basophils # (0-0.2) k/uL PT (9.0-12.0) sec INR (<1.2) APTT (22.0-30.0) sec Sodium 138 (137-145) mmol/L Potassium 4.1 (3.5-5.1) mmol/L Chloride 107 (98-107) mmol/L Carbon Dioxide 24 (22-30) mmol/L Anion Gap 7 mmol/L BUN 9 (7-17) mg/dL Creatinine 0.80 (0.52-1.04) mg/dL Est GFR (CKD-EPI)AfAm >90 (>60 ml/min/1.73 sqM) Est GFR (CKD-EPI)NonAf >90 (>60 ml/min/1.73 sqM) Glucose 91 (74-99) mg/dL Calcium 9.3 (8.4-10.2) mg/dL Total Bilirubin 0.4 (0.2-1.3) mg/dL AST 29 (14-36) U/L ALT 38 H (4-34) U/L Alkaline Phosphatase 72 (38-126) U/L Total Protein 7.8 (6.3-8.2) g/dL Albumin 4.7 (3.5-5.0) g/dL Lipase 78 (23-300) U/L HCG, Quant 307.3 mIU/mL Blood Type Blood Type Recheck Bld Type Recheck Status Disposition Clinical Impression: Ectopic , Abdominal pain Disposition: HOME SELF-CARE Instructions (If sedation given, give patient instructions): Ectopic (DC) Additional Instructions: You likely have an ectopic . Please get a repeat serum beta hCG on Thursday. Your CARE ADMINISTRATIVE TECH office will reach out to check up on you over the phone. Take [place] as directed for pain. Please make sure you return to the emergency department if you experience new, concerning, or worsening symptoms including but not limited to severe pain, severe bleeding, fever, or lightheadedness. Prescriptions: HYDROcodone/APAP 10-325MG [[place] 10-325] 1 tab PO Q4-6H PRN 5 Days #20 tab PRN Reason: Pain Is patient prescribed a controlled substance at d/c from ED?: Yes When asked, does pt state using other controlled substances?: Yes If prescribed controlled substance>3 days was MAPS reviewed?: Yes If opioid is for acute pain is fill amount 7 days or less?: Yes If Rx opioid, was Start Talking consent form obtained?: Yes Referrals: Nery Pratt DO [Primary Care Provider] - 1-2 days Time of Disposition: 23:07
[2021-09-26 21:22] LABS: ALT 38 U/L (4-34); AST 29 U/L (14-36); African American GFR (CKD) >90 (>60 ml/min/1.73 sqM); Albumin 4.7 g/dL (3.5-5.0); Alkaline Phosphatase 72 U/L (38-126); Anion Gap 7 mmol/L; Blood Urea Nitrogen 9 mg/dL (7-17); Calcium 9.3 mg/dL (8.4-10.2); Carbon Dioxide 24 mmol/L (22-30); Chloride 107 mmol/L (98-107); Glucose 91 mg/dL (74-99); Lipase 78 U/L (23-300); Non-African American GFR(CKD) >90 (>60 ml/min/1.73 sqM); Potassium 4.1 mmol/L (3.5-5.1); Sodium 138 mmol/L (137-145); Total Bilirubin 0.4 mg/dL (0.2-1.3); Total Protein 7.8 g/dL (6.3-8.2)
[2021-09-26 21:34] LABS: HCG,Quantitative Serum 307.3 mIU/mL
--- NOTE | 2021-09-26 22:14 | US ---
EXAMINATION TYPE: Transabdominal/Transvaginal DATE OF EXAM: 09/26/2021 9:18 PM COMPARISON: US OB less than 09/18/21 CLINICAL HISTORY: ectopic vs miscarriage . Patient states she has been to the ER 4 times for this pre gnancy. States that she was told she was miscarrying due to dropping HCG levels at her last ER visit on 09/22/21 at another facility. EXAM PERFORMED: Transvaginal (TV) and Transabdominal (TA) EXAM MEASUREMENTS: GESTATIONAL AGE / DATING Physician Established: Not yet established Dates by LMP: LMP unknown . Dates by First Scan: No IUP seen first scan . Dates by Current Scan for: No IUP seen at this time. MATERNAL ANATOMY Uterus: 8.1 x 5.2 x 6.6 cm; right uterine fibroid 2.2 x 1.7 x 2.0 cm; left uterine fibroid 5.1 x 4.1 x 4.8 cm Right Ovary: 3.1 x 1.6 x 2.3 cm; dominant follicle 1.6 x 1.5 x 1.6 cm Left Ovary: 2.5 x 1.6 x 2.1 cm Post CDS / Adnexa: Hypoechoic area seen in the right adnexa, adjacent to the right ovary, 2.8 x 2.4 x 2.4 cm. Unable to determine if this is connected to the right ovary Presence of free fluid: no Presence of corpus luteal cyst: no Endometrium: 0.41 cm Date of LMP: unknown Beta HcG (if available): Not available at this time IMPRESSION: 1. No IUP seen at this time. 2. 2.5 cm hypoechoic focus adjacent to right ovary.
[2021-09-26] MEDS ORDERED: METHOTREXATE SODIUM (PF) 25 MG/ML 2 ML VIAL IM STA (22:40)
[2021-09-27 00:26] VITALS: BP 115/74; PULSE 74; RESP 18; TEMP 97.9
== END 2021-09-27 00:33 | disposition home or self-care (01) ==
LOC: EC 16:51
DX: O09.90 Supervision of high risk pregnancy, unspecified, unspecified trimester (principal); O00.90 Unspecified ectopic pregnancy without intrauterine pregnancy; O26.899 Other specified pregnancy related conditions, unspecified trimester; R10.31 Right lower quadrant pain; Z3A.00 Weeks of gestation of pregnancy not specified
CPT/HCPCS: 86900; 86901; 80053; 83690; 85025; 85610; 85730; 84702; 76801; 76817; 99284; 96374; 96376; 96372; J2270 ×2; J9260

== ENCOUNTER 2021-09-29 14:51 | Emergency (ER) | payer OTHER ==
[2021-09-29 14:57] VITALS: RESP 18; TEMP 98.1
[2021-09-29] MEDS ORDERED: SODIUM CHLORIDE 0.9% 1,000 ML IV ONE (15:36)
[2021-09-29 15:53] LABS: Basophils % (A) 0 %; Eosinophils % (A) 0 %; HCT 43.2 % (34.0-46.0); HGB 14.5 gm/dL (11.4-16.0); Lymphocytes # (A) 1.7 k/uL (1.0-4.8); Lymphocytes % (A) 20 %; MCH 32.3 pg (25.0-35.0); MCHC 33.5 g/dL (31.0-37.0); MCV 96.2 fL (80.0-100.0); Mean Platelet Volume 8.4; Monocytes # (A) 0.1 k/uL (0-1.0); Monocytes % (A) 2 %; Neutrophils # (A) 6.4 k/uL (1.3-7.7); Neutrophils % (A) 77 %; Platelet Count 232 k/uL (150-450); RBC 4.49 m/uL (3.80-5.40); RDW 11.5 % (11.5-15.5); WBC 8.4 k/uL (3.8-10.6)
--- NOTE | 2021-09-29 16:01 | XR ---
EXAMINATION TYPE: XR KUB DATE OF EXAM: 09/29/2021 COMPARISON: 09/18/2021 HISTORY: Abdominal pain TECHNIQUE: 2 views upright FINDINGS: There is no sign of intestinal obstruction or pneumoperitoneum. Fecal pattern is normal. No evidence of constipation. Lung bases are clear. There are no pathologic calcifications. IMPRESSION: Nonacute abdomen. No change.
[2021-09-29 16:10] LABS: ALT 38 U/L (4-34); AST 30 U/L (14-36); African American GFR (CKD) >90 (>60 ml/min/1.73 sqM); Albumin 4.5 g/dL (3.5-5.0); Alkaline Phosphatase 59 U/L (38-126); Anion Gap 9 mmol/L; Blood Urea Nitrogen 12 mg/dL (7-17); Calcium 9.1 mg/dL (8.4-10.2); Carbon Dioxide 20 mmol/L (22-30); Chloride 104 mmol/L (98-107); Glucose 93 mg/dL (74-99); Non-African American GFR(CKD) >90 (>60 ml/min/1.73 sqM); Potassium 4.4 mmol/L (3.5-5.1); Sodium 133 mmol/L (137-145); Total Bilirubin 0.8 mg/dL (0.2-1.3); Total Protein 7.7 g/dL (6.3-8.2)
[2021-09-29 16:25] LABS: HCG,Quantitative Serum 242.5 mIU/mL
--- NOTE | 2021-09-29 17:09 | US ---
EXAMINATION TYPE: Transabdominal DATE OF EXAM: 09/29/2021 4:54 PM COMPARISON: US CLINICAL HISTORY: pain. Pelvic pain, vaginal spotting, pt given Methotrexate for probable ectopic 4 d ays ago EXAM PERFORMED: Transvaginal (TV) and Transabdominal (TA) EXAM MEASUREMENTS: GESTATIONAL AGE / DATING Physician Established: Not yet established Dates by LMP: LMP unknown Dates by First Scan: No IUP visualized on prior Dates by Current Scan for: No IUP seen at this time MATERNAL ANATOMY Uterus: 10.8 x 6.5 x 7.1 cm- two probable fibroids 1)- uterine fundus= 4.9 x 4.5 x 4.8 cm/ 2)- uteri ne body= 2.1 x 1.7 x 2.2 cm Right Ovary: 2.3 x 1.5 x 1.3 cm Left Ovary: 3.2 x 2.3 x 3.1 cm Post CDS / Adnexa: Solid, isoechoic, vascular mass right adnexa adjacent to right ovary= 3.0 x 2.8 x 2.5 cm- increased in size when compared to prior Presence of free fluid: No Presence of corpus luteal cyst: Right Ovary= 1.5 x 1.4 x 1.7 cm GESTATION / SURVEY IUP: No IUP seen at this time Beta HcG (if available): Not available at this time Right adnexal mass increase in size when compared to prior- No IUP visualized at this time/ Uterine fibroids IMPRESSION: Solid 3 cm right adnexal mass could be early ectopic . This measures 2.4 cm on exam 3 days a go and now measures 3 cm. Empty uterus. Thickened endometrium.
[2021-09-29] MEDS ORDERED: MAGNESIUM CITRATE 296 ML BOTTLE PO ONE (17:45)
--- NOTE | 2021-09-29 17:57 | ED ---
General Adult HPI - General Chief complaint: Abdominal Pain Stated complaint: Recheck/Abnormal Labs Source: patient Mode of arrival: ambulatory Limitations: no limitations - History of Present Illness Initial comments: 41-year-old female who is presents to the emergency department for reevaluation of her ectopic . Patient has been seen twice in our emergency department and twice at [facility] for similar complaint. On the she was diagnosed with ectopic and was given methotrexate under the recommendation of Dr. Vazquez. Patient was told that she was going to need repeat laboratory studies on Thursday and therefore she presented to us at the outpatient lab was closed. She has not called to make an appointment with OB yet. Upon last ER visit she was given Aurora for pain control. She has had some continued vaginal bleeding. She is O+. She denies any abnormal vaginal discharge. No changes in her bowel or bladder habits. She has had some lower abdominal cramping however states that it is not getting any worse. No fevers or chills. Patient concerned for constipation as she has not had a bowel movement in the past several days. She attempted to take Dulcolax and an enema. No other alleviating, precipitating laughing factors - Related Data Previous Rx's Medication Instructions Recorded Methocarbamol [Robaxin-750] 750 mg PO BID PRN 5 Days #10 tablet 09/18/21 Ondansetron Odt [Zofran Odt] 4 mg PO Q8HR PRN #3 tab 09/18/21 Msz290/Iron/FA/O3/Dha/Epa/Fish 1 each PO DAILY #28 capsule 09/18/21 [ Multi-Dha Softgel] HYDROcodone/APAP 10-325MG [Aurora 1 tab PO Q4-6H PRN 5 Days #20 tab 09/26/21 10-325] Allergies Allergy/AdvReac Type Severity Reaction Status Date / Time ibuprofen [From Motrin] AdvReac ULCERS Verified 09/29/21 14:52 Review of Systems ROS Statement: Those systems with pertinent positive or pertinent negative responses have been documented in the HPI. ROS Other: All systems not noted in ROS Statement are negative. Past Medical History Past Medical History: No Reported History History of Any Multi-Drug Resistant Organisms: None Reported Additional Past Surgical History / Comment(s): ankle surgery, laparoscopy. Past Psychological History: No Psychological Hx Reported Smoking Status: Current every day smoker Past Alcohol Use History: Occasional Past Drug Use History: None Reported General Exam Limitations: no limitations Course Vital Signs 09/29/21 09/29/21 14:54 18:30 Temperature 98.1 F Pulse Rate 59 L 65 Respiratory 18 18 Rate Blood Pressure 121/78 102/65 O2 Sat by Pulse 99 100 Oximetry Medical Decision Making - Medical Decision Making Upon arrival patient was placed into room 21. I did agree the patient's previous laboratory studies and imaging. IV access is established and laboratory studies are conducted. As the patient reports to continued pain I did repeat an ultrasound. Patient's beta Quant today is 242. Previous beta Quant was 307. Ultrasound continues to demonstrate a right adnexal mass that measures 3 cm in size. I did call and speak with Dr. Freeman who is aware of the patient's presence in the emergency department. She is also made aware of her l aboratory studies and radiology results. As the patient has not reporting any new or worsening symptoms and her beta Quant is falling, she did recommend follow up in office this week. Patient instructed to call the office in the morning and make an appointment. Her beta Quant needs to fall to zero. She is informed of the importance of following this until it is undetectable. She is given strict return parameters. Return for any new or worsening symptoms. Patient agreed to the plan. She is given a bottle of magnesium citrate for her constipation. Recommended that the patient take some type of stool softener while taking the Aurora's for pain. Patient understood this, was given written and verbal discharge instructions and discharged home in stable condition - Lab Data Result diagrams: 09/29/21 15:44 09/29/21 15:44 Lab Results 09/29/21 09/29/21 Range/Units 15:44 15:44 WBC 8.4 (3.8-10.6) k/uL RBC 4.49 (3.80-5.40) m/uL Hgb 14.5 (11.4-16.0) gm/dL Hct 43.2 (34.0-46.0) % MCV 96.2 (80.0-100.0) fL MCH 32.3 (25.0-35.0) pg MCHC 33.5 (31.0-37.0) g/dL RDW 11.5 (11.5-15.5) % Plt Count 232 (150-450) k/uL MPV 8.4 Neutrophils % 77 % Lymphocytes % 20 % Monocytes % 2 % Eosinophils % 0 % Basophils % 0 % Neutrophils # 6.4 (1.3-7.7) k/uL Lymphocytes # 1.7 (1.0-4.8) k/uL Monocytes # 0.1 (0-1.0) k/uL Eosinophils # 0.0 (0-0.7) k/uL Basophils # 0.0 (0-0.2) k/uL Sodium 133 L (137-145) mmol/L Potassium 4.4 (3.5-5.1) mmol/L Chloride 104 (98-107) mmol/L Carbon Dioxide 20 L (22-30) mmol/L Anion Gap 9 mmol/L BUN 12 (7-17) mg/dL Creatinine 0.73 (0.52-1.04) mg/dL Est GFR (CKD-EPI)AfAm >90 (>60 ml/min/1.73 sqM) Est GFR (CKD-EPI)NonAf >90 (>60 ml/min/1.73 sqM) Glucose 93 (74-99) mg/dL Calcium 9.1 (8.4-10.2) mg/dL Total Bilirubin 0.8 (0.2-1.3) mg/dL AST 30 (14-36) U/L ALT 38 H (4-34) U/L Alkaline Phosphatase 59 (38-126) U/L Total Protein 7.7 (6.3-8.2) g/dL Albumin 4.5 (3.5-5.0) g/dL HCG, Quant 242.5 mIU/mL Disposition Clinical Impression: Ectopic Disposition: HOME SELF-CARE Condition: Stable Instructions (If sedation given, give patient instructions): Ectopic (DC) Additional Instructions: Please drink a quarter to one half of the bottle of magnesium citrate and wait 4 hours. Drink the other half if you do not have a bowel movement after 4 hours. Follow up with the [facility] this week. Call make an appointment tomorrow. Your beta Quant needs to trend down to 0. Return for any heavy bleeding or worsening pain. Is patient prescribed a controlled substance at d/c from ED?: No Referrals: Nery Pratt, [Primary Care Provider] - 1-2 days Lesley Freeman MD [STAFF PHYSICIAN] - 1-2 days Time of Disposition: 17:58
[2021-09-29 18:32] VITALS: BP 102/65; PULSE 65
== END 2021-09-29 18:36 | disposition home or self-care (01) ==
LOC: EC 14:51
DX: O00.90 Unspecified ectopic pregnancy without intrauterine pregnancy (principal); F17.200 Nicotine dependence, unspecified, uncomplicated; Z3A.00 Weeks of gestation of pregnancy not specified; Z88.6 Allergy status to analgesic agent
CPT/HCPCS: 36415; 74018; 76801; 76817; 80053; 84702; 85025; 96360; 96361; 99284

== ENCOUNTER → 2021-10-14 | Outpatient (CLI) | payer OTHER ==
[2021-10-14 18:27] LABS: HCT 40.1 % (37.2-46.3); HGB 13.2 g/dL (12.0-15.0); MCHC 32.9 g/dL (32.0-37.0); MCV 97.1 fL (80.0-97.0); Mean Platelet Volume 11.5 fL (9.5-12.2); NRBC Per 100 WBC 0 /100 WBCS (0.0-0.0); Platelet Count 249 X 10*3/uL (140-440); RBC 4.13 X 10*6/uL (4.10-5.20); RDW 12.5 % (11.5-14.5); WBC 7.31 X 10*3/uL (4.50-10.00)
[2021-10-14 18:55] LABS: ALT 15 U/L (8-44); AST 11 U/L (13-35); African American GFR (CKD) 90.8 (60.0-200.0); Blood Urea Nitrogen 6.6 mg/dL (9.0-27.0); HCG,Quantitative Serum <3.0 (0.0-6.0); Non-African American GFR(CKD) 78.3 (60.0-200.0)
== END | disposition home or self-care (01) ==
LOC: LABWHC1 12:17
PROVIDERS: ATTEND Obstetrics & Gynecology Obstetrics
DX: O00.109 Unspecified tubal pregnancy without intrauterine pregnancy (principal); Z3A.00 Weeks of gestation of pregnancy not specified
CPT/HCPCS: 36415; 82565; 84450; 84460; 84520; 84702; 85027

== ENCOUNTER → 2022-04-07 | Outpatient (CLI) | payer OTHER ==
--- NOTE | 2022-04-08 12:40 | MM ---
Reason for Exam: Screening (asymptomatic). Patient History: Menarche at age 11. First Full-Term at age 16. Mother had breast cancer at or over age 50. Last menstrual period: 04/05/2022 Risk Values: Anuja 5 year model risk: 1.3%. NCI Lifetime model risk: 17.4%. Prior Study Comparison: No prior studies available for comparison. Tissue Density: The breast tissue is extremely dense which could obscure a lesion on mammography. Findings: Analyzed By CAD. Some scattered and loosely grouped benign-appearing round calcifications bilaterally are present. More indeterminate grouped calcifications in the middle to posterior depth of the left breast slightly inner aspect want further workup without prior comparison. Overall Assessment: Incomplete: need additional imaging evaluation, BI-RAD 0 Management: Special View Mammogram of the left breast. Return for additional spot magnification views and true lateral view left breast. Electronically signed and approved by: Alvarez Cho M.D.
== END | disposition home or self-care (01) ==
LOC: RADMAMWWP 11:37
PROVIDERS: ATTEND Family Medicine
DX: Z12.31 Encounter for screening mammogram for malignant neoplasm of breast (principal); Z80.3 Family history of malignant neoplasm of breast
CPT/HCPCS: 77067

== ENCOUNTER → 2022-04-11 | Outpatient (CLI) | payer OTHER ==
--- NOTE | 2022-04-11 09:55 | MM ---
Reason for Exam: Additional evaluation requested from prior study. Last screening mammogram was performed less than 1 month ago. Patient History: Menarche at age 11. First Full-Term at age 16. Patient has history of breast feeding. Mother had breast cancer at or over age 50. Risk Values: Anuja 5 year model risk: 1.3%. NCI Lifetime model risk: 17.4%. Prior Study Comparison: 04/07/2022 Bilateral MG screening mammo w CAD, [facility]. Tissue Density: Left: The breast tissue is heterogeneously dense. This may lower the sensitivity of mammography. Findings: Analyzed By CAD. There are multiple groups of punctate benign calcifications in the left breast. The most suspicious of these is located 6 cm from the nipple in the mid breast on the mediolateral oblique view somewhat posteriorly. Tomographic images of the lateral medial view suggests this is slightly medial placing this at the 9:00 position posteriorly. Stereotactic core biopsy of calcifications is recommended. Based on the results, the decision for additional biopsies could be performed. Consider MRI for additional evaluation. Overall Assessment: Suspicious, BI-RAD 4 Management: Stereotactic Core Biopsy of the left breast. A clinical breast exam by your physician is recommended on an annual basis and results should be correlated with mammographic findings. This exam should not preclude additional follow-up of suspicious palpable abnormalities. Results were given to the patient verbally at the time of exam. Electronically signed and approved by: Matt Bryant D.O. Radiologis
== END | disposition home or self-care (01) ==
LOC: RADMAMWWP 09:10
PROVIDERS: ATTEND Family Medicine
DX: R92.8 Other abnormal and inconclusive findings on diagnostic imaging of breast (principal); Z80.3 Family history of malignant neoplasm of breast
CPT/HCPCS: 77065; G0279; 77061

== ENCOUNTER → 2022-04-28 | Day surgery (SDC) | payer OTHER ==
[2022-04-28 10:29] VITALS: RESP 16
[2022-04-28 12:02] VITALS: BP 125/80; PULSE 61; TEMP 98.6
--- NOTE | 2022-05-01 10:08 | MM ---
Risk Values: Anuja 5 year model risk: 1.3%. NCI Lifetime model risk: 17.4%. Prior Study Comparison: 04/07/2022 Bilateral MG screening mammo w [facility], [facility]. 04/11/2022 Left MG work up mamm w CAD , [facility]. Pathology Description: The procedure of stereotactic guided core biopsy was explained to the patient. Benefits, alternatives, and risks were discussed. An informed consent was then obtained. [facility] was chosen. Shortness pathway was left MLO approach. I performed the localization, then surgeon, Dr. Guthrie performed the remainder of the procedure. A vacuum assisted biopsy gun was used to obtain multiple core samples. The patient tolerated the procedure well without any immediate complication. The patient was kept in the radiology department for short stay after the procedure and then discharged home in stable condition. Targeted calcifications are identified in specimen mammogram. Post biopsy mammogram shows the clip to appear in satisfactory position relative to the targeted area of concern on the preprocedure images. Impression: SUCCESSFUL, UNCOMPLICATED STEREOTACTIC GUIDED CORE BIOPSY OF AREA OF CONCERN IN THE left BREAST. Pathology Results: Result: Malignant, Ductal carcinoma in situ, micropapillary type. 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 See Surgical Pathology Cancer Case Summary and comment. Overall Assessment: Malignant Management: Surgical Consultation of the left breast. Patient may need either MRI to assess extent of disease or additional site biopsy, possibly two more sites. Electronically signed and approved by: Grover Guthrie DO
== END ==
LOC: RADMAMWWP 10:21
PROVIDERS: ATTEND Surgery
DX: D05.12 Intraductal carcinoma in situ of left breast (principal); R92.0 Mammographic microcalcification found on diagnostic imaging of breast
CPT/HCPCS: 88305; 88342; 88341; 19081; A4648; J2001

== ENCOUNTER 2022-04-29 16:58 | Observation (INO) | payer OTHER ==
[2022-04-29] MEDS ORDERED: SODIUM CHLORIDE 0.9% 1,000 ML IV STA (19:47)
[2022-04-29 19:55] LABS: Basophils % (A) 0 %; Eosinophils # (A) 0.2 k/uL (0-0.7); Eosinophils % (A) 2 %; HCT 46.6 % (34.0-46.0); HGB 15.9 gm/dL (11.4-16.0); Lymphocytes # (A) 2.1 k/uL (1.0-4.8); Lymphocytes % (A) 19 %; MCH 32.7 pg (25.0-35.0); MCHC 34.2 g/dL (31.0-37.0); MCV 95.6 fL (80.0-100.0); Monocytes # (A) 0.4 k/uL (0-1.0); Monocytes % (A) 4 %; Neutrophils # (A) 8.3 k/uL (1.3-7.7); Neutrophils % (A) 75 %; Platelet Count 255 k/uL (150-450); RBC 4.87 m/uL (3.80-5.40); RDW 12.1 % (11.5-15.5); WBC 11.1 k/uL (3.8-10.6)
--- NOTE | 2022-04-29 20:00 | ED ---
General Adult HPI - General Chief complaint: Syncope Stated complaint: Syncope Time Seen by Provider: 04/29/22 19:36 Source: patient Mode of arrival: ambulatory Limitations: no limitations - History of Present Illness Initial comments: Patient is a 41-year-old female presenting with chief complaint of syncope. Patient states that today after taking a shower she was changing his dressing to a biopsy she had performed on her left breast yesterday when she suddenly started "seeing stars". She sat down and then remembers waking up on the floor. This occurred around 3:30pm today. She admits to headache on the left side of the head, where she believes that she hit her head. She denies any chest pain outside of the area of the biopsy. No difficulty breathing. No fever or chills. No abdominal pain, nausea, vomiting. No vision or hearing changes, neck pain or stiffness. - Related Data Home Medications Medication Instructions Recorded Confirmed Acetaminophen-Codeine 300-30mg 1 tab PO Q6H PRN 04/11/22 04/29/22 [Tylenol w/codeine #3] Allergies Allergy/AdvReac Type Severity Reaction Status Date / Time ibuprofen [From Motrin] AdvReac ULCERS Verified 04/29/22 22:12 Review of Systems ROS Statement: Those systems with pertinent positive or pertinent negative responses have been documented in the HPI. ROS Other: All systems not noted in ROS Statement are negative. Past Medical History Past Medical History: No Reported History Additional Past Medical History / Comment(s): hx of ulcers, stomach History of Any Multi-Drug Resistant Organisms: None Reported Additional Past Surgical History / Comment(s): ankle surgery, laparoscopy. Breast biopsy 04/29/22 Past Anesthesia/Blood Transfusion Reactions: No Reported Reaction Past Psychological History: Anxiety Smoking Status: Current every day smoker Past Alcohol Use History: Occasional Past Drug Use History: None Reported - Past Family History Mother Family Medical History: Coronary Artery Disease (CAD) General Exam Limitations: no limitations General appearance: alert, in no apparent distress Head exam: Present: atraumatic, normocephalic, normal inspection Eye exam: Present: normal appearance, PERRL, EOMI. Absent: scleral icterus, conjunctival injection, periorbital swelling Neck exam: Present: normal inspection, full ROM Respiratory exam: Present: normal lung sounds bilaterally. Absent: respiratory distress, wheezes, rales, rhonchi, stridor Cardiovascular Exam: Present: normal rhythm, bradycardia, normal heart sounds. Absent: systolic murmur, diastolic murmur, rubs, gallop, clicks GI/Abdominal exam: Present: soft. Absent: distended, tenderness, guarding, rebound, rigid Neurological exam: Present: alert, oriented X3, CN II-XII intact Psychiatric exam: Present: normal affect, normal mood Skin exam: Present: warm, dry, intact, normal color. Absent: rash Course Vital Signs 04/29/22 04/29/22 04/29/22 17:12 19:42 20:14 Temperature 97.9 F 98 F 98.2 F Pulse Rate 55 L 56 L 56 L Respiratory 20 16 16 Rate Blood Pressure 94/63 132/91 129/72 Blood Pressure [Right Arm] O2 Sat by Pulse 99 99 98 Oximetry 04/29/22 04/29/22 04/29/22 20:48 20:49 21:15 Temperature 98.2 F 98.1 F Pulse Rate 56 L 49 L Respiratory 16 16 Rate Blood Pressure 123/76 124/75 Blood Pressure 125/76 [Right Arm] O2 Sat by Pulse 100 99 Oximetry 04/29/22 04/29/22 22:23 22:24 Temperature 97.7 F 97.7 F Pulse Rate 52 L 50 L Respiratory 16 16 Rate Blood Pressure 112/65 112/65 Blood Pressure [Right Arm] O2 Sat by Pulse 99 99 Oximetry Medical Decision Making - Medical Decision Making Patient is a 41-year-old female presenting with chief complaint of syncope. Patient states that after she got out of the shower today she was changing the dressing for her breast biopsy that was performed yesterday, she states she "started seeing stars". She sat down to collect herself and states she woke up on the floor. Physical examination shows bradycardia. Lab work is grossly neg ative, CT of the brain and cervical spine and chest x-ray are negative. I'm concerned for symptomatic bradycardia. I discussed this case with Dr. Noe who accepted admission. Patient will be admitted for observation and cardiac consult. She is agreeable with this plan. I discussed this case with my attending Dr. Adair. - Lab Data Result diagrams: 04/29/22 19:30 04/29/22 19:30 Lab Results 04/29/22 04/29/22 04/29/22 Range/Units 19:30 19:30 19:30 WBC 11.1 H (3.8-10.6) k/uL RBC 4.87 (3.80-5.40) m/uL Hgb 15.9 (11.4-16.0) gm/dL Hct 46.6 H (34.0-46.0) % MCV 95.6 (80.0-100.0) fL MCH 32.7 (25.0-35.0) pg MCHC 34.2 (31.0-37.0) g/dL RDW 12.1 (11.5-15.5) % Plt Count 255 (150-450) k/uL MPV 9.0 Neutrophils % 75 % Lymphocytes % 19 % Monocytes % 4 % Eosinophils % 2 % Basophils % 0 % Neutrophils # 8.3 H (1.3-7.7) k/uL Lymphocytes # 2.1 (1.0-4.8) k/uL Monocytes # 0.4 (0-1.0) k/uL Eosinophils # 0.2 (0-0.7) k/uL Basophils # 0.0 (0-0.2) k/uL PT (9.0-12.0) sec INR (<1.2) APTT (22.0-30.0) sec Sodium 136 L (137-145) mmol/L Potassium 4.8 (3.5-5.1) mmol/L Chloride 104 (98-107) mmol/L Carbon Dioxide 23 (22-30) mmol/L Anion Gap 9 mmol/L BUN 13 (7-17) mg/dL Creatinine 0.68 (0.52-1.04) mg/dL Est GFR (CKD-EPI)AfAm >90 (>60 ml/min/1.73 sqM) Est GFR (CKD-EPI)NonAf >90 (>60 ml/min/1.73 sqM) Glucose 94 (74-99) mg/dL Calcium 9.2 (8.4-10.2) mg/dL Magnesium (1.6-2.3) mg/dL Total Bilirubin 0.7 (0.2-1.3) mg/dL AST 27 (14-36) U/L ALT 19 (4-34) U/L Alkaline Phosphatase 82 (38-126) U/L Troponin I <0.012 (0.000-0.034) ng/mL Total Protein 7.7 (6.3-8.2) g/dL Albumin 4.7 (3.5-5.0) g/dL Urine Color Urine Appearance (Clear) Urine pH (5.0-8.0) Ur Specific [place] (1.001-1.035) Urine Protein (Negative) Urine Glucose (UA) (Negative) Urine Ketones (Negative) Urine Blood (Negative) Urine Nitrite (Negative) Urine Bilirubin (Negative) Urine Urobilinogen (<2.0) mg/dL Ur Leukocyte Esterase (Negative) Urine HCG, Qual (Not Detectd) 04/29/22 04/29/22 04/29/22 Range/Units 19:50 19:53 20:12 WBC (3.8-10.6) k/uL RBC (3.80-5.40) m/uL Hgb (11.4-16.0) gm/dL Hct (34.0-46.0) % MCV (80.0-100.0) fL MCH (25.0-35.0) pg MCHC (31.0-37.0) g/dL RDW (11.5-15.5) % Plt Count (150-450) k/uL MPV Neutrophils % % Lymphocytes % % Monocytes % % Eosinophils % % Basophils % % Neutrophils # (1.3-7.7) k/uL Lymphocytes # (1.0-4.8) k/uL Monocytes # (0-1.0) k/uL Eosinophils # (0-0.7) k/uL Basophils # (0-0.2) k/uL PT 10.5 (9.0-12.0) sec INR 1.0 (<1.2) APTT 24.4 (22.0-30.0) sec Sodium (137-145) mmol/L Potassium (3.5-5.1) mmol/L Chloride (98-107) mmol/L Carbon Dioxide (22-30) mmol/L Anion Gap mmol/L BUN (7-17) mg/dL Creatinine (0.52-1.04) mg/dL Est GFR (CKD-EPI)AfAm (>60 ml/min/1.73 sqM) Est GFR (CKD-EPI)NonAf (>60 ml/min/1.73 sqM) Glucose (74-99) mg/dL Calcium (8.4-10.2) mg/dL Magnesium 2.0 (1.6-2.3) mg/dL Total Bilirubin (0.2-1.3) mg/dL AST (14-36) U/L ALT (4-34) U/L Alkaline Phosphatase (38-126) U/L Troponin I (0.000-0.034) ng/mL Total Protein (6.3-8.2) g/dL Albumin (3.5-5.0) g/dL Urine Color Yellow Urine Appearance Clear (Clear) Urine pH 5.5 (5.0-8.0) Ur Specific [place] 1.019 (1.001-1.035) Urine Protein Negative (Negative) Urine Glucose (UA) Negative (Negative) Urine Ketones Negative (Negative) Urine Blood Negative (Negative) Urine Nitrite Negative (Negative) Urine Bilirubin Negative (Negative) Urine Urobilinogen <2.0 (<2.0) mg/dL Ur Leukocyte Esterase Negative (Negative) Urine HCG, Qual (Not Detectd) 04/29/22 Range/Units 20:12 WBC (3.8-10.6) k/uL RBC (3.80-5.40) m/uL Hgb (11.4-16.0) gm/dL Hct (34.0-46.0) % MCV (80.0-100.0) fL MCH (25.0-35.0) pg MCHC (31.0-37.0) g/dL RDW (11.5-15.5) % Plt Count (150-450) k/uL MPV Neutrophils % % Lymphocytes % % Monocytes % % Eosinophils % % Basophils % % Neutrophils # (1.3-7.7) k/uL Lymphocytes # (1.0-4.8) k/uL Monocytes # (0-1.0) k/uL Eosinophils # (0-0.7) k/uL Basophils # (0-0.2) k/uL PT (9.0-12.0) sec INR (<1.2) APTT (22.0-30.0) sec Sodium (137-145) mmol/L Potassium (3.5-5.1) mmol/L Chloride (98-107) mmol/L Carbon Dioxide (22-30) mmol/L Anion Gap mmol/L BUN (7-17) mg/dL Creatinine (0.52-1.04) mg/dL Est GFR (CKD-EPI)AfAm (>60 ml/min/1.73 sqM) Est GFR (CKD-EPI)NonAf (>60 ml/min/1.73 sqM) Glucose (74-99) mg/dL Calcium (8.4-10.2) mg/dL Magnesium (1.6-2.3) mg/dL Total Bilirubin (0.2-1.3) mg/dL AST (14-36) U/L ALT (4-34) U/L Alkaline Phosphatase (38-126) U/L Troponin I (0.000-0.034) ng/mL Total Protein (6.3-8.2) g/dL Albumin (3.5-5.0) g/dL Urine Color Urine Appearance (Clear) Urine pH (5.0-8.0) Ur Specific [place] (1.001-1.035) Urine Protein (Negative) Urine Glucose (UA) (Negative) Urine Ketones (Negative) Urine Blood (Negative) Urine Nitrite (Negative) Urine Bilirubin (Negative) Urine Urobilinogen (<2.0) mg/dL Ur Leukocyte Esterase (Negative) Urine HCG, Qual Not Detected (Not Detectd) Disposition Clinical Impression: Syncope, Symptomatic bradycardia Disposition: ADMITTED IP TO THIS [facility] Condition: Fair Time of Disposition: 21:13 Decision to Admit Reason: Admit from EC Decision Date: 04/29/22 Decision Time: 21:13
[2022-04-29 20:07] LABS: ALT 19 U/L (4-34); AST 27 U/L (14-36); African American GFR (CKD) >90 (>60 ml/min/1.73 sqM); Albumin 4.7 g/dL (3.5-5.0); Alkaline Phosphatase 82 U/L (38-126); Anion Gap 9 mmol/L; Blood Urea Nitrogen 13 mg/dL (7-17); Calcium 9.2 mg/dL (8.4-10.2); Carbon Dioxide 23 mmol/L (22-30); Chloride 104 mmol/L (98-107); Glucose 94 mg/dL (74-99); Non-African American GFR(CKD) >90 (>60 ml/min/1.73 sqM); Potassium 4.8 mmol/L (3.5-5.1); Sodium 136 mmol/L (137-145); Total Bilirubin 0.7 mg/dL (0.2-1.3); Total Protein 7.7 g/dL (6.3-8.2)
[2022-04-29 20:21] LABS: Appearance,Urine Clear (Clear); Bilirubin,Urine Negative (Negative); Blood,Urine Negative (Negative); Color,Urine Yellow; Glucose,Urine (UA) Negative (Negative); Ketones,Urine Negative (Negative); Leukocyte Esterase,Urine Negative (Negative); Nitrite,Urine Negative (Negative); PH, Urine 5.5 (5.0-8.0); Protein,Urine Negative (Negative); Specific Gravity,Urine 1.019 (1.001-1.035); Urobilinogen,Urine <2.0 mg/dL (<2.0)
--- NOTE | 2022-04-29 20:26 | CT ---
EXAMINATION TYPE: CT brain cspine wo con DATE OF EXAM: 04/29/2022 COMPARISON: None HISTORY: pain after syncope episode CT DLP: mGycm Automated exposure control for dose reduction was used. Images obtained of the brain and cervical spine with no contrast. Ventricles have normal size. There is no mass effect or midline shift. No sign of intracranial hemorr neida. Calvarium is intact. There is normal aeration of the mastoid sinuses. The cervical vertebra have normal alignment. Posterior elements are intact. No compression fracture. Facet joints are intact. There is minor spurring at C6-7 endplates IMPRESSION: Mild degenerative disc changes at C6-7. No fracture. Negative CT scan of the brain.
--- NOTE | 2022-04-29 20:31 | XR ---
EXAMINATION TYPE: XR chest 2V DATE OF EXAM: 04/29/2022 COMPARISON: NONE HISTORY: Syncope TECHNIQUE: 2 views FINDINGS: Heart and mediastinum are normal. Lungs are clear. Diaphragm is normal. Bony thorax is inta ct. The pulmonary vascularity is normal. IMPRESSION: Normal chest.
[2022-04-29 20:36] LABS: Partial Thromboplastin Time 24.4 sec (22.0-30.0); Prothrombin Time 10.5 sec (9.0-12.0)
[2022-04-29] MEDS ORDERED: Acetaminophen-Codeine 300-30mg TAB PO STA (21:00)
[2022-04-29] MEDS ORDERED: NALOXONE 0.4 MG/ML 1 ML VIAL IV PRN (21:10)
[2022-04-29] MEDS: SODIUM CHLORIDE 0.9% 1,000 ML IV SCH (22:11)
--- NOTE | 2022-04-30 02:23 | P.HPIM ---
History of Present Illness H&P Date: 04/29/22 The patient is a 41-year-old female with no known PMH who presents to the emergency room after an episode of syncope. The patient reports that she had undergone a left breast biopsy yesterday, and as she was in the shower earlier today at around 3:30 PM attempting to take off the bandages, she suddenly developed lightheadedness. She attempted to sit down on the toilet and the next thing she knew, she woke up on the ground after an unknown amount of time. She denied experiencing chest discomfort, shortness of breath, nausea, vomiting, diaphoresis, or palpitations. Denied urinary incontinence, bowel incontinence, or tongue bites. Reports feeling at her baseline at the time of interview and denied any post ictal confusion or fatigue. She reports hitting her head on the left side due to pain in the area. She reports a very distant history of syncope in her childhood of unknown cause. Head/cervical spine CT was unremarkable with chest x-ray also unremarkable. EKG reveals sinus bradycardia at [address]/T-wave changes noted as reviewed by me. Laboratory evaluation was remarkable for leukocytosis of 11.1. Review of systems: Pertinent positives and negatives as discussed in HPI, a complete review of systems was performed and all other systems are negative. Physical examination: General: non toxic, no distress, appears at stated age, overweight Derm: no unusual rashes/lesions, warm Head: atraumatic, normocephalic, symmetric Eyes: EOMI, no lid lag, anicteric sclera, pupils equal round reactive to light ENT: Nose and ears atraumatic Neck: No cervical lymphadenopathy, trachea midline, supple Mouth: no lip lesion, mucus membranes moist Cardiovascular: S1S2 reg, no murmur, positive dorsalis pedis pulse bilateral, no edema Lungs: CTA bilateral, no rhonchi, no rales, no accessory muscle use Abdominal: soft, nontender to palpation, no guarding Ext: muscle strength 5 out of 5 in all 4 extremities grossly, no gross muscle atrophy, no contractures, Neuro: CN II-XI grossly intact, no gross focal neuro deficits Psych: Alert, oriented, appropriate affect Assessment/plan Syncope with sinus bradycardia -Cardiac monitoring -Echocardiogram -Cardiology consulted Leukocytosis -No signs of active infection at this time -Likely due to acute stressor DVT prophylaxis -Heparin subcu The patient is admitted with an anticipated less than 2 midnight stay for evaluation of syncope. CODE STATUS: Full Code Discussed with: Patient Anticipated discharge date: in am Anticipated discharge place: Home Past Medical History Past Medical History: No Reported History Additional Past Medical History / Comment(s): hx of ulcers, stomach History of Any Multi-Drug Resistant Organisms: None Reported Additional Past Surgical History / Comment(s): ankle surgery, laparoscopy. Breast biopsy 04/29/22 Past Anesthesia/Blood Transfusion Reactions: No Reported Reaction Past Psychological History: Anxiety Smoking Status: Former smoker Past Alcohol Use History: Occasional Past Drug Use History: None Reported - Past Family History Mother Family Medical History: Coronary Artery Disease (CAD) Medications and Allergies Home Medications Medication Instructions Recorded Confirmed Type Acetaminophen-Codeine 300-30mg 1 tab PO Q6H PRN 04/11/22 04/29/22 History [Tylenol w/codeine #3] Allergies Allergy/AdvReac Type Severity Reaction Status Date / Time ibuprofen [From Motrin] AdvReac ULCERS Verified 04/29/22 22:12 Physical Exam Vitals: Vital Signs Temp Pulse Resp BP BP Pulse Ox 04/29/22 22:24 97.7 F 50 L 16 112/65 99 04/29/22 22:23 97.7 F 52 L 16 112/65 99 04/29/22 21:15 98.1 F 49 L 16 124/75 99 04/29/22 20:49 98.2 F 56 L 16 123/76 100 04/29/22 20:48 125/76 04/29/22 20:14 98.2 F 56 L 16 129/72 98 04/29/22 19:42 98 F 56 L 16 132/91 99 04/29/22 17:12 97.9 F 55 L 20 94/63 99 Intake and Output 04/29/22 04/29/22 04/30/22 14:59 22:59 06:59 Other: Weight 83.915 kg Results CBC & Chem 7: 04/29/22 19:30 04/29/22 19:30 Labs: Abnormal Lab Results - Last 24 Hours (Table) 04/29/22 04/29/22 Range/Units 19:30 19:30 WBC 11.1 H (3.8-10.6) k/uL Hct 46.6 H (34.0-46.0) % Neutrophils # 8.3 H (1.3-7.7) k/uL Sodium 136 L (137-145) mmol/L Thrombosis Risk Factor Assmnt - Choose All That Apply Any of the Below Risk Factors Present?: Yes Each Factor Represents 1 point: Age 41-60 years, Obesity (BMI >25) Other Risk Factors: No Thrombosis Risk Factor Assessment Total Risk Factor Score: 2 Thrombosis Risk Factor Assessment Level: Low Risk
[2022-04-30] MEDS: Acetaminophen-Codeine 300-30mg TAB PO PRN ×2 (08:12→18:48)
[2022-04-30] MEDS: HEPARIN SODIUM,PORCINE/PF 5,000 UNIT/0.5 ML SYRINGE SQ SCH ×2 (08:12→17:33)
--- NOTE | 2022-04-30 09:11 | P.CRDCN ---
History of Present Illness History of present illness: HISTORY OF PRESENTING ILLNESS This is a pleasant 41-year-old female past medical history significant for chronic nicotine dependence, states she quit smoking this week, family history of coronary artery disease. She does not follow with a flat hammerer. We have been asked to see in consultation for syncope and bradycardia. Patient presents to the emergency department after syncopal episode at home. She states that she recently had a left breast biopsy. She states yesterday after her shower she states she stood up and had symptoms of lightheadedness, and "saw stars". She sat down and states she had a overwhelming feeling that she may pass out. She states she must have fallen to the ground because she woke up on the ground and must have knocked items over. She came to the ER for further evaluation. She had no symptoms of chest pain, palpitations, shortness of breath. She denies any cough, fever, chills. She denies any history of cardiac disease, heart failure, CAD, [place], STroke, diabetes, hypertension, arrhythmia. She denies any family history of pacemaker implantation, she states she does have family members with coronary artery disease, unknown details. She denies any illicit drug use. Occasional alcohol use. On admission patient was found to be in sinus bradycardia with heart rate in the 40s DIAGNOSTICS * EKG reveals sinus bradycardia, heart rate 44, incomplete right bundle branch block * Telemetry tracings indicate sinus mechanism, heart rates 4560s * Chest xray no acute cardiopulmonary process. * Head and cervical spine CT with no acute abnormality reported * Laboratory reviewed, WBC 11.1, hemoglobin 15.9, platelets 255, sodium 136, potassium 4.8, BUN 13, serum creatinine 0.6, troponin negative x 1 * Current home medications include PRN tylenol w/ codeine REVIEW OF SYSTEMS At the time of my exam: CONSTITUTIONAL: Denies fever or chills. CARDIOVASCULAR: Denies chest pain, shortness of breath, orthopnea, PND or palpitations. RESPIRATORY: Denies cough. GASTROINTESTINAL: Denies abdominal pain, diarrhea, constipation, nausea or vomiting. MUSCULOSKELETAL: Denies myalgias. NEUROLOGIC: Denies numbness, tingling, headacbe or weakness. ENDOCRINE: Denies fatigue, weight change, polydipsia or polyurina. GENITOURINARY: Denies burning, hematuria or urgency with micturation. HEMATOLOGIC: Denies history of anemia or bleeding. PHYSICAL EXAMINATION Blood pressure 105/63, heart rate 53, afebrile, oxygen saturation 97% on room air CONSTITUTIONAL: No apparent distress. HEENT: Head is normocephalic. Pupils are equal, round. Sclerae anicteric. Mucous membranes of the mouth are moist. No JVD. No carotid bruit. CHEST EXAMINATION: Lungs are clear to auscultation. No chest wall tenderness is noted on palpation or with deep breathing. HEART EXAMINATION: Regular rate and rhythm. S1, S2 heard. No murmurs, gallops or rub. ABDOMEN: Soft, nontender. Positive bowel sounds. EXTREMITIES: 2+ peripheral pulses, no lower extremity edema and no calf tenderness. NEUROLOGIC EXAMINATION: Patient is awake, alert and oriented x3. ASSESSMENT Syncopal episode Sinus bradycardia Chronic nicotine dependence PLAN Repeat troponin Check TSH Obtain 2D echocardiogram and doppler study to assess cardiac structure and function. Continue cardiac telemetry NPO after midnight for possible exercise stress test based on above findings. Further recommendations based on clinical course Nurse practitioner note has been reviewed by physician. Signing provider agrees with the documented findings, assessment, and plan of care. Past Medical History Past Medical History: No Reported History Additional Past Medical History / Comment(s): hx of ulcers, stomach History of Any Multi-Drug Resistant Organisms: None Reported Additional Past Surgical History / Comment(s): ankle surgery, laparoscopy. Breast biopsy 04/29/22 Past Anesthesia/Blood Transfusion Reactions: No Reported Reaction Past Psychological History: Anxiety Smoking Status: Current every day smoker Past Alcohol Use History: Occasional Past Drug Use History: None Reported - Past Family History Mother Family Medical History: Coronary Artery Disease (CAD) Medications and Allergies Home Medications Medication Instructions Recorded Confirmed Type Acetaminophen-Codeine 300-30mg 1 tab PO Q6H PRN 04/11/22 04/29/22 History [Tylenol w/codeine #3] Allergies Allergy/AdvReac Type Severity Reaction Status Date / Time ibuprofen [From Motrin] AdvReac ULCERS Verified 04/29/22 22:12 Physical Exam Vitals: Vital Signs Temp Pulse Pulse Resp BP BP Pulse Ox 04/30/22 04:00 97.9 F 53 L 16 105/63 97 04/30/22 02:00 49 L 04/29/22 23:40 98.1 F 45 L 18 137/81 98 04/29/22 22:24 97.7 F 50 L 16 112/65 99 04/29/22 22:23 97.7 F 52 L 16 112/65 99 04/29/22 21:15 98.1 F 49 L 16 124/75 99 04/29/22 20:49 98.2 F 56 L 16 123/76 100 04/29/22 20:48 125/76 04/29/22 20:14 98.2 F 56 L 16 129/72 98 04/29/22 19:42 98 F 56 L 16 132/91 99 04/29/22 17:12 97.9 F 55 L 20 94/63 99 Intake and Output 04/29/22 04/30/22 04/30/22 22:59 06:59 14:59 Other: Voiding Method Toilet # Voids 1 Weight 83.915 kg Results 04/29/22 19:30 04/29/22 19:30 Cardiac Enzymes 04/29/22 04/29/22 Range/Units 19:30 19:30 AST 27 (14-36) U/L Troponin I <0.012 (0.000-0.034) ng/mL Coagulation 04/29/22 Range/Units 19:53 PT 10.5 (9.0-12.0) sec APTT 24.4 (22.0-30.0) sec CBC 04/29/22 Range/Units 19:30 WBC 11.1 H (3.8-10.6) k/uL RBC 4.87 (3.80-5.40) m/uL Hgb 15.9 (11.4-16.0) gm/dL Hct 46.6 H (34.0-46.0) % Plt Count 255 (150-450) k/uL Comprehensive Metabolic Panel 04/29/22 Range/Units 19:30 Sodium 136 L (137-145) mmol/L Potassium 4.8 (3.5-5.1) mmol/L Chloride 104 (98-107) mmol/L Carbon Dioxide 23 (22-30) mmol/L BUN 13 (7-17) mg/dL Creatinine 0.68 (0.52-1.04) mg/dL Glucose 94 (74-99) mg/dL Calcium 9.2 (8.4-10.2) mg/dL AST 27 (14-36) U/L ALT 19 (4-34) U/L Alkaline Phosphatase 82 (38-126) U/L Total Protein 7.7 (6.3-8.2) g/dL Albumin 4.7 (3.5-5.0) g/dL Current Medications Generic Name Dose Route Start Last Admin Trade Name Freq PRN Reason Stop Dose Admin Acetaminophen/Codeine Phosphate 1 each 04/29/22 21:10 Acetaminophen-Codeine 300-30mg Tab PO Q4HR PRN Moderate Pain (Scale 4 to 6) Heparin Sodium (Porcine) 5,000 unit 04/30/22 08:00 Heparin Sodium,Porcine/Pf 5,000 Unit/0.5 Ml Syringe SQ Q8HR ST[place]ING Sodium Chloride 1,000 mls @ 80 mls/hr 04/29/22 21:15 04/29/22 22:11 Saline 0.9% IV 80 mls/hr .[id number] [place] Administration Naloxone HCl 0.2 mg 04/29/22 21:10 Naloxone 0.4 Mg/Ml 1 Ml Vial IV Q2M PRN Opioid Reversal Intake and Output 04/29/22 04/30/22 04/30/22 22:59 06:59 14:59 Other: Voiding Method Toilet # Voids 1 Weight 83.915 kg 04/29/22 19:30 04/29/22 19:30
--- NOTE | 2022-04-30 13:33 | P.PN ---
Subjective Progress Note Date: 04/30/22 Principal diagnosis: syncope Hospital Course: 41-year-old female with no past medical history presented with syncope. Likely vasovagal. She was found to have sinus bradycardia in the ED. Cardiology evaluated. Patient will undergo echocardiogram and stress test. Subjective: Patient seen and examined at bedside. No acute events overnight. She denies c hest pain, shortness of breath, abdominal pain, palpitations, lightheadedness, urinary or bowel complaints. Pertinent positives and negatives as discussed above, a complete review of systems was performed and all other systems are negative. Vitals Signs Reviewed. General: nontoxic, no distress, appears at stated age Derm: warm, dry Head: atraumatic, normocephalic, symmetric Eyes: EOMI, no lid lag, anicteric sclera Mouth: no lip lesion, mucus membranes moist Cardiovascular: S1S2 reg, no murmur Lungs: CTA bilateral, no rhonchi, no rales , no accessory muscle use Abdominal: soft, nontender to palpation, no guarding, no appreciable organomegaly Ext: no gross muscle atrophy, no edema, no contractures Neuro: CN II-XI grossly intact, no focal neuro deficits Psych: Alert, oriented, appropriate affect Assessment and Plan: Syncope -Likely vasovagal -Telemetry Sinus bradycardia -TSH normal -Cardiology consulted -Echo, stress test pending DVT ppx - heparin sq Code status: Full code Anticipated discharge place: home Anticipated discharge time: 05/01 Objective - Vital Signs Vital signs: Vital Signs Temp 97.7 F 04/30/22 07:55 Pulse 57 L 04/30/22 07:55 Resp 16 04/30/22 07:55 BP 134/75 04/30/22 07:55 Pulse Ox 93 L 04/30/22 07:55 FiO2 Intake & Output 04/29/22 04/30/22 04/30/22 18:59 06:59 18:59 Weight 83.915 kg 83.915 kg Other: Voiding Method Toilet # Voids 1 - Labs CBC & Chem 7: 04/29/22 19:30 04/29/22 19:30 Labs: Abnormal Lab Results - Last 24 Hours (Table) 04/29/22 04/29/22 Range/Units 19:30 19:30 WBC 11.1 H (3.8-10.6) k/uL Hct 46.6 H (34.0-46.0) % Neutrophils # 8.3 H (1.3-7.7) k/uL Sodium 136 L (137-145) mmol/L
[2022-04-30] MEDS: SODIUM CHLORIDE 0.9% 1,000 ML IV SCH ×2 (14:11→23:36)
[2022-04-30] MEDS ORDERED: LORazepam 1 MG TAB PO STA (14:30)
[2022-04-30] MEDS ORDERED: hydrOXYzine HCL 25 MG TAB PO PRN (14:43)
[2022-05-01] MEDS: HEPARIN SODIUM,PORCINE/PF 5,000 UNIT/0.5 ML SYRINGE SQ SCH ×3 (00:38→16:32)
--- NOTE | 2022-05-01 10:04 | CA ---
Transthoracic Echo Report Name: Sabina Bob Age: 41 Gender: F : 1980 Exam Date: 04/30/2022 09:54 Exam Location: [place] [facility] Ht (in): 69 Wt (lb): 185 Ordering Physician: Theresa Oliveira Attending/Referring Phys: Special Officer Tianna Garcia RDCS Procedure CPT: Indications: Syncope Cardiac Hx: Technical Quality: Good Contrast 1: Total Dose (mL): Contrast 2: Total Dose (mL): MEASUREMENTS (Male / Female) Normal Values 2D ECHO LV Diastolic Diameter PLAX 5.0 cm 4.2 - 5.9 / 3.9 - 5.3 cm LV Systolic Diameter PLAX 3.2 cm IVS Diastolic Thickness 1.0 cm 0.6 - 1.0 / 0.6 - 0.9 cm LVPW Diastolic Thickness 0.9 cm 0.6 - 1.0 / 0.6 - 0.9 cm LV Relative Wall Thickness 0.4 RV Internal Dim ED PLAX 3.1 cm LA Systolic Diameter LX 3.3 cm 3.0 - 4.0 / 2.7 - 3.8 cm LA Volume 53.0 cm??? 18 - 58 / 22 - 52 cm??? M-MODE Aortic Root Diameter MM 2.9 cm MV E Point Septal Separation 0.5 cm AV Cusp Separation MM 2.2 cm DOPPLER AV Peak Velocity 150.1 cm/s AV Peak Gradient 9.0 mmHg MV Area PHT 4.0 cm??? Mitral E Point Velocity 112.0 cm/s Mitral A Point Velocity 73.5 cm/s Mitral E to A Ratio 1.5 MV Deceleration Time 187.4 ms MV E' Velocity 11.9 cm/s Mitral E to MV E' Ratio 9.4 FINDINGS Left Ventricle Left ventricular ejection fraction is estimated at 50-55%. Right Ventricle Normal right ventricular size and function. Right Atrium Normal right atrial size. Left Atrium Mildly increased left atrial volume. Mitral Valve Structurally normal mitral valve. Mild mitral regurgitation. Aortic Valve Trileaflet aortic valve. Tricuspid Valve Structurally normal tricuspid valve. Mild tricuspid regurgitation. Pulmonic Valve Structurally normal pulmonic valve. Trace to mild pulmonic regurgitation. Pericardium Normal pericardium. Aorta Normal size aortic root and proximal ascending aorta. CONCLUSIONS Normal LV size and systolic function left atrial enlargement Previewed by: Dr. Jamie Carrasco MD (Electronically Signed) Final Date: 01 May 2022 10:03
--- NOTE | 2022-05-01 10:55 | P.PN ---
Subjective This is a pleasant 41-year-old female past medical history significant for chronic nicotine dependence, states she quit smoking this week, family history of coronary artery disease. She does not follow with a assisted living nursing director. We have been asked to see in consultation for syncope and bradycardia. Patient presents to the emergency department after syncopal episode at home. She states that she recently had a left breast biopsy. She states yesterday after her shower she states she stood up and had symptoms of lightheadedness, and "saw stars". She sat down and states she had a overwhelming feeling that she may pass out. She states she must have fallen to the ground because she woke up on the ground and must have knocked items over. She came to the ER for further evaluation. She had no symptoms of chest pain, palpitations, shortness of breath. She denies any cough, fever, chills. She denies any history of cardiac disease, heart failure, CAD, [place], STroke, diabetes, hypertension, arrhythmia. She denies any family history of pacemaker implantation, she states she does have family members with coronary artery disease, unknown details. She denies any illicit drug use. Occasional alcohol use. On admission patient was found to be in sinus bradycardia with heart rate in the 40s 05/01/2022 Patient seen and examined at bedside, no acute distress. No further episodes of lightheadedness, dizziness. She denies chest pain or shortness of breath. She continues to be in sinus rhythm heart rate in the 50s-60s. No significant bradycardia or arrhythmia noted. Blood pressure 114/64. TSH was normal. Acute coronary syndrome has been ruled out. Echocardiogram revealed EF of 5055 %, mild mitral regurgitation, mild tricuspid regurgitation PHYSICAL EXAMINATION Items reviewed CONSTITUTIONAL: No apparent distress. HEENT: Head is normocephalic. Pupils are equal, round. Sclerae anicteric. Mucous membranes of the mouth are moist. No JVD. No carotid bruit. CHEST EXAMINATION: Lungs are clear to auscultation. No chest wall tenderness is noted on palpation or with deep breathing. HEART EXAMINATION: Regular rate and rhythm. S1, S2 heard. No murmurs, gallops or rub. ABDOMEN: Soft, nontender. Positive bowel sounds. EXTREMITIES: 2+ peripheral pulses, no lower extremity edema and no calf tenderness. NEUROLOGIC EXAMINATION: Patient is awake, alert and oriented x3. ASSESSMENT Syncopal episode, appears to be possibly vasovagal Sinus bradycardia Chronic nicotine dependence PLAN Plan for exercise stress test today. If stress test with no acute findings, okay to discharge from cardiology perspective. Recommend 30 day event monitor this will be placed as an outpatient, instructions placed in patient's discharge Follow up outpatient with Dr. Sparrow Nurse practitioner note has been reviewed by physician. Signing provider agrees with the documented findings, assessment, and plan of care. Objective - Vital Signs Vital signs: Vital Signs Temp 97.7 F 05/01/22 08:10 Pulse 56 L 05/01/22 08:10 Resp 16 05/01/22 08:10 BP 114/64 05/01/22 08:10 Pulse Ox 96 05/01/22 08:10 FiO2 Intake & Output 04/30/22 05/01/22 05/01/22 18:59 06:59 18:59 Other: Voiding Method Toilet # Voids 1 1 - Labs CBC & Chem 7: 04/29/22 19:30 04/29/22 19:30
[2022-05-01 13:00] VITALS: BMI 27.3
[2022-05-01 16:31] VITALS: BP 110/71; PULSE 69; RESP 16; TEMP 98.1
[2022-05-01] MEDS: SODIUM CHLORIDE 0.9% 1,000 ML IV SCH (16:32)
--- NOTE | 2022-05-01 17:59 | P.PN ---
Subjective Progress Note Date: 05/01/22 Principal diagnosis: syncope Hospital Course: 41-year-old female with no past medical history presented with syncope. Likely vasovagal. She was found to have sinus bradycardia in the ED. Cardiology evaluated. Echocardiogram showed EF 50-55%, mild TR and mild MR. Stress test completed, pending report. Subjective: Patient seen and examined at bedside. No acute events overnight. She denies chest pain, shortness of breath, abdominal pain, palpitations, lightheadedness, urinary or bowel complaints. Pertinent positives and negatives as discussed above, a complete review of systems was performed and all other systems are negative. Vitals Signs Reviewed. General: nontoxic, no distress, appears at stated age Derm: warm, dry Head: atraumatic, normocephalic, symmetric Eyes: EOMI, no lid lag, anicteric sclera Mouth: no lip lesion, mucus membranes moist Cardiovascular: S1S2 reg, no murmur Lungs: CTA bilateral, no rhonchi, no rales , no accessory muscle use Abdominal: soft, nontender to palpation, no guarding, no appreciable organomegaly Ext: no gross muscle atrophy, no edema, no contractures Neuro: CN II-XI grossly intact, no focal neuro deficits Psych: Alert, oriented, appropriate affect Assessment and Plan: Syncope -Likely vasovagal -Telemetry Sinus bradycardia -TSH normal -Cardiology consulted -Echo showed EF 50-55%, mild TR and mild MR -Stress test completed, pending report DVT ppx - heparin sq Code status: Full code Anticipated discharge place: home Anticipated discharge time: 05/02, after stress test results Objective - Vital Signs Vital signs: Vital Signs Temp 98.1 F 05/01/22 15:30 Pulse 69 05/01/22 15:30 Resp 16 05/01/22 15:30 BP 110/71 05/01/22 15:30 Pulse Ox 98 05/01/22 15:30 FiO2 Intake & Output 04/30/22 05/01/22 05/01/22 18:59 06:59 18:59 Weight 83.915 kg Other: Voiding Method Toilet Toilet # Voids 1 1 1 - Labs CBC & Chem 7: 04/29/22 19:30 04/29/22 19:30
--- NOTE | 2022-05-01 19:15 | P.DS ---
Providers Date of admission: 04/29/22 20:35 Expected date of discharge: 05/01/22 Attending physician: Bradford Noe MD Consults: 04/29/22 21:10 Consult Physician Urgent Consulting Provider: [facility] Reason/Comments: Symptomatic bradycardia, syncopal episode Do you want consulting provider notified?: Yes Primary care physician: DENYS Santana Hospital Course: Discharge Diagnosis: Syncope, vasovagal Sinus bradycardia Anxiety Hospital Course: 41-year-old female with no past medical history presented with syncope. Likely vasovagal. She was found to have sinus bradycardia in the ED. Cardiology consulted. TSH normal. Troponin normal. Echo shows normal LV size and systolic function with LVEF 50-55%, left atrial enlargement. Stress test was normal. Patient to see cardiology in office for 30 day event monitor. Patient seen and examined at bedside. Vital signs reviewed and stable. General: [nontoxic], [no distress], [appears at stated age] Derm: [warm], [dry] Head: [atraumatic], [normocephalic], [symmetric] Eyes: [EOMI], [no lid lag], [anicteric sclera] Mouth: [no lip lesion], [mucus membranes moist] Cardiovascular: [S1S2 reg], [no murmur] Lungs: [CTA bilateral], [no rhonchi, no rales] , [no accessory muscle use] Abdominal: [soft], [ nontender to palpation], [no guarding], [no appreciable organomegaly] Ext: [no gross muscle atrophy], [no edema], [no contractures] Neuro: [ CN II-XI grossly intact], [no focal neuro deficits] Psych: [Alert], [oriented], [appropriate affect] A total of 35 minutes of time were spent preparing this complex discharge summary. Patient was discharged on 05/01/22 at 19:13. Patient Condition at Discharge: Stable Plan - Discharge Summary Discharge Rx Participant: No New Discharge Prescriptions: Continue Acetaminophen-Codeine 300-30mg [Tylenol w/codeine #3] 1 tab PO Q6H PRN PRN Reason: Pain Discharge Medication List Acetaminophen-Codeine 300-30mg [Tylenol w/codeine #3] 1 tab PO Q6H PRN 04/11/22 [History] Follow up Appointment(s)/Referral(s): Uriel Sparrow MD [STAFF PHYSICIAN] - 6 Weeks (Someone from the office will call you with an appointment) Belinda Bowden NPC [Primary Care Provider] - 1-2 days Activity/Diet/Wound Care/Special Instructions: Cardiology Instructions: -Please go to [facility] to bulk picker an event monitor in the office. -We would like you to wear this monitor for 30 days -The office is close to the hospital on [address]. Address is [address] [place] [address] -Please tell the front end developer javascript html css your name and that you're picking up an event monit or -They will give you all the instructions and answer your questions at that time You will follow up with Dr. Sparrow in the office after your event monitor has been turned in, someone from the office will reach out to you for an appointment date and time Discharge Disposition: HOME SELF-CARE
--- NOTE | 2022-05-01 20:46 | CA ---
Exercise Stress Test Report Name: Sabina Bob Exam Date: 05/01/2022 11:32 Exam Location: [place] Stress Ht (in): 69 Wt (lb): 185 BSA: 2.00 Ordering Phys: Theresa Oliveira Referring Phys: ALICIA,, Technologist: Pan Juárez Age: 41 Gender: F : 1980 Procedure CPT: Indications: Bradycardia ICD-10 Codes: Patient History: Syncope, Medications: Meds past 24 hrs: Pretest Chest Pain: STRESS TEST Ludwin Protocol Exercise Duration (min:sec): 09:[address] Depressions (mm): Angina Score: Yanes Score: Resting HR (bpm): 77 Peak HR (bpm): 151 Resting BP (mmHg): 118 / 84 Peak BP (mmHg): 212 / 100 MPHR: 177 Target HR: 150 % MPHR: 85 METS: 10.3 Total Dose: Peak Dose: Atropine: Double Product: 40129 BP Response: Stress Termination: MAX EXERTION/TARGET HR Stress Symptoms: CHEST PAIN,NAUSEA Stress Summary: ECG ANALYSIS Resting ECG: Stress ECG: CONCLUSIONS Baseline heart rate 80 beats a minute, Baseline blood pressure 118/84 mmHg Baseline 12-lead EKG shows sinus rhythm with normal ST segments Patient exercised on Ludwin protocol for 9 minutes The heart rate 150 beats a minute P blood pressure 212/[address] Jamie Carrasco MD (Electronically Signed) Final Date: 01 May 2022 20:45
== END 2022-05-01 19:36 | disposition home or self-care (01) ==
LOC: EC 16:58 → 3SCARD 20:35
PROVIDERS: ADMIT Internal Medicine; ATTEND Internal Medicine
DX: R55 Syncope and collapse (principal); R00.1 Bradycardia, unspecified; D72.829 Elevated white blood cell count, unspecified; F41.9 Anxiety disorder, unspecified; F17.200 Nicotine dependence, unspecified, uncomplicated; Z20.822 Contact with and (suspected) exposure to COVID-19; Z88.6 Allergy status to analgesic agent; Z82.49 Family history of ischemic heart disease and other diseases of the circulatory system
CPT/HCPCS: 96372 ×2; 96360; 99284; 36415; 93005; 93017; 93306; 80053; 84443; 83735; 84484 ×2; 85025; 85610; 85730; 81003; 81025; 87635; 71046; 72125; 70450; G0378 ×3; J1644 ×2

== ENCOUNTER → 2022-05-28 | Outpatient (CLI) | payer OTHER ==
--- NOTE | 2022-06-02 06:54 | BMR ---
EXAMINATION TYPE: MR breast BILAT wo/w con DATE OF EXAM: 05/28/2022 COMPARISON: Screening mammogram April 07, 2022 BI-RADS 0. Diagnostic left breast mammogram April BI-RADS 4 HISTORY: Newly diagnosed left breast cancer, medial lump of right breast for 2 years. Stereotactic gu ided biopsy April 28, 2022 TECHNIQUE: A series of fat and water weighted images in the long and short axis views of both breasts are obtained in conjunction with dynamic contrast MRI with subtraction technique. The patient was i njected with 9 mL intravenous Gadavist gadolinium contrast. Three-dimensional and additional postpr ocessing imaging is created on independent workstation and reviewed during official interpretation of this study. FINDINGS: Extremely dense fibroglandular tissue throughout bilateral breasts is redemonstrated. Symme tric benign appearing bilateral axillary lymph nodes are seen. T2 and STIR weighted images show scatt ered thin-walled cysts of varying size and shape throughout the bilateral breast dense tissue. Dynami c postcontrast imaging shows moderate to severe background enhancement which is noted to lower MRI se nsitivity for evaluation for malignancy. With regards to the right breast there is area of masslike enhancement measuring approximately 3.3 x 1.5 x 5.0 cm that is isointense on T1-weighted images and T2-weighted images with heterogeneous postc ontrast enhancement having areas of rapid uptake and washout in the middle upper slightly outer porti on that warrants further workup. There is a second enhancing lesion in the posterior depth outer lowe r portion measuring 1.0 x 0.7 x 0.7 cm of T1 hypointensity and T2 hyperintensity that has heterogeneo us enhancement with areas of rapid uptake and washout. No abnormal skin thickening is seen. Chest wal l is intact. With regards to the left breast there is artifact from biopsy clip in the inner slightly upper aspect with a thin-walled 8 mm fluid collection of T2 hyperintensity presumed postbiopsy hematoma. This has some mild surrounding enhancement of predominantly gradual type on dynamic imaging. Areas of tiny no dular enhancement throughout the glandular tissue are present. No definitive pathologic enhancing mas ses greater than 5 mm. No abnormal skin thickening is seen. The chest wall is intact. IMPRESSION: Degree of involvement of biopsy proven malignancy in the left breast not well demarcated on MRI. There are 2 areas of concern in the right breast noted. BI-RADS 4 suspicious abnormalities right breast BI-RADS 6 biopsy-proven malignancy left breast Recommendation: Ultrasound evaluation of the right breast to evaluate for possible 2 lesions.
== END | disposition home or self-care (01) ==
LOC: RADMRIMAIN 19:19
PROVIDERS: ATTEND Surgery
DX: C50.912 Malignant neoplasm of unspecified site of left female breast (principal)
CPT/HCPCS: C8908; A9585; 77049

== ENCOUNTER → 2022-06-17 | Day surgery (SDC) | payer OTHER ==
--- NOTE | 2022-06-17 14:14 | USB ---
Reason for Exam: MRI abnormality. Patient History: Menarche at age 11. First Full-Term at age 16. Patient has history of breast feeding. Breast cancer, left, age 41. 04/28/2022, Malignant MG stereo VAD BX LT on the left side. Mother had breast cancer at or over age 50. Technique: Method: Targeted. Prior Study Comparison: 04/07/2022 Bilateral MG screening mammo w [facility], [facility]. 04/11/2022 Left MG work up mamm w CAD LT, [facility]. Findings: The lateral section of the breast of the right breast, the axilla of the right breast and the retroareolar of the right breast were scanned. Altered areas of masslike echogenicity at the right 7:00 position measuring approximately 8 mm as well as at the right 11:00 position measuring approximately 2.5 cm. Biopsy is recommended for both sites.. Overall Assessment: Suspicious, BI-RAD 4 Management: Ultrasound Core Biopsy of the right breast. A clinical breast exam by your physician is recommended on an annual basis and results should be correlated with mammographic findings. This exam should not preclude additional follow-up of suspicious palpable abnormalities. Results were given to the patient verbally at the time of exam. Electronically signed and approved by: Rubén Mohr M.D. Radiologis
== END ==
LOC: RADUSWWP 12:55
PROVIDERS: ATTEND Surgery
DX: D24.1 Benign neoplasm of right breast (principal); D05.11 Intraductal carcinoma in situ of right breast; N60.11 Diffuse cystic mastopathy of right breast
CPT/HCPCS: 88305; 88342; 88341; 77065; 19083; 19084; 76642; A4648

== ENCOUNTER → 2022-06-23 | Day surgery (SDC) | payer OTHER ==
[2022-06-23 07:51] VITALS: BP 132/80; PULSE 69; RESP 16; TEMP 97.6
== END ==
LOC: RADMAMWWP 07:28
PROVIDERS: ATTEND Surgery
DX: Z53.9 Procedure and treatment not carried out, unspecified reason (principal); D05.10 Intraductal carcinoma in situ of unspecified breast

== ENCOUNTER → 2022-07-01 | Day surgery (SDC) | payer OTHER ==
[2022-07-01 07:32] VITALS: RESP 16
[2022-07-01 08:33] VITALS: BP 107/75; PULSE 50; TEMP 98.1
--- NOTE | 2022-07-07 14:12 | MM ---
Prior Study Comparison: 04/07/2022 Bilateral MG screening mammo w CAD, [facility]. 04/11/2022 Left MG work up mamm w CAD LT, [facility]. 06/17/2022 Right MG diagnostic mammo RT wo CAD, [facility]. Pathology Description: Approach: CC FA Needle Type: Eviva Cores: 11 Skin Nicks: 1 Gauge: 9 no problems The procedure of stereotactic guided core biopsy was explained to the patient. Benefits, alternatives, and risks were discussed. An informed consent was then obtained. Multiple groups of microcalcifications are present. Attempt was made to target site farthest from the previous posterior upper inner quadrant biopsy site/clip. We identified a 12-1 o'clock group of microcalcifications more anteriorly in the breast. The shortness pathway for biopsy was chosen. Shortness pathway was a CC from above approach. I performed the localization followed by the remainder of the procedure. A vacuum assisted biopsy gun was used to obtain multiple core samples. The patient tolerated the procedure well without any immediate complication. The patient was kept in the radiology department for short stay after the procedure and then discharged home in stable condition. Targeted calcifications are identified in specimen mammogram. Post biopsy mammogram shows the clip to appear in satisfactory position relative to the targeted area of concern on the preprocedure images. IMPRESSION: SUCCESSFUL, UNCOMPLICATED STEREOTACTIC GUIDED CORE BIOPSY OF 12-1 O'CLOCK LEFT BREAST MICROCALCIFICATIONS ANTERIOR TO THE PREVIOUS POSITIVE BIOPSY SITE LOCATED POSTERIOR UPPER INNER QUADRANT. APPROXIMATELY 4.5 CM OF DISTANCE BETWEEN THE CLIPS. Pathology Results: Result: High risk, Atypical lobular hyperplasia. LEFT BREAST, STEREOTACTIC CORE BIOPSY: Fibrosis suggestive of scar with mammary duct ectasia, periductal chronic inflammation, focal usual ductal hyperplasia and focal areas of lobular neoplasia (at least atypical lobular hyperplasia). See note. Focal microcalcification associated with lobular neoplasia present. Fibrocystic change with apocrine metaplasia present. Overall Assessment: High risk Management: Surgical Consultation of the left breast. (to discuss management options). Electronically signed and approved by: Marilu Mendoza M.D. Radiologist
== END ==
LOC: RADMAMWWP 07:18
PROVIDERS: ATTEND Surgery
DX: C50.912 Malignant neoplasm of unspecified site of left female breast (principal); N60.41 Mammary duct ectasia of right breast; N60.92 Unspecified benign mammary dysplasia of left breast; N60.82 Other benign mammary dysplasias of left breast
CPT/HCPCS: 88305; 88342; 88341; 19081; A4648; J2001

== ENCOUNTER 2022-07-22 10:15 | Day surgery (SDC) | payer OTHER ==
[2022-07-17 10:19] VITALS: BMI 28.7
--- NOTE | 2022-07-21 13:18 | P.GSHP ---
History of Present Illness H&P Date: 07/22/22 Chief Complaint: Left breast cancer, abnormal bilateral mammogram 42-year-old female diagnosed in with low-grade DCIS left breast. This is ER/PA positive. Patient had additional areas of suspicious calcification in the left breast. MRI was advised by radiology to evaluate these other locations. Family history of breast cancer in her mother in her 50s. Patient is otherwise asymptomatic. After MRI the degree of biopsy-proven cancer was not well seen on the left-hand side. 2 areas of concern in the right breast were noted. Patient then went for second look ultrasound right breast. 2 separate sites were identified and recommended for biopsy. One site demonstrated LCIS, the other site demonstrated a fibroadenoma. Following that a stereo biopsy was performed left breast at one of the other calcifications sites. Atypical lobular hyperplasia was noted at that second left breast stereo site. Patient remains interested in breast conservation. She did have genetic testing performed showing a variant of unknown significance. We are not aware of the genetic testing results for her mother. Past Medical History Past Medical History: Cancer Additional Past Medical History / Comment(s): stomach ulcers. left breast cancer History of Any Multi-Drug Resistant Organisms: None Reported Past Surgical History: Breast Surgery, Orthopedic Surgery Additional Past Surgical History / Comment(s): ankle surgery, laparoscopy, breast biopsy Past Anesthesia/Blood Transfusion Reactions: No Reported Reaction Past Psychological History: Anxiety Smoking Status: Former smoker Past Alcohol Use History: None Reported Additional Past Alcohol Use History / Comment(s): quit smoking April 2022 Past Drug Use History: None Reported - Past Family History Mother Family Medical History: Cancer, Coronary Artery Disease (CAD) Additional Family Medical History / Comment(s): breast and brain cancer Medications and Allergies Home Medications Medication Instructions Recorded Confirmed Type Acetaminophen-Codeine 300-30mg 1 tab PO Q6H PRN 04/11/22 07/17/22 History [Tylenol w/codeine #3] ALPRAZolam [Xanax] 0.5 mg PO TID PRN 06/23/22 07/17/22 History Allergies Allergy/AdvReac Type Severity Reaction Status Date / Time ibuprofen [From Motrin] AdvReac ULCERS Verified 07/17/22 10:12 Surgical - Exam Physical exam: General: Well-developed, well-nourished HEENT: Normocephalic, sclerae nonicteric Right breast: No masses or adenopathy, recent biopsy site noted Left breast: No masses or adenopathy, recent biopsy site noted Abdomen: Nontender, nondistended Extremities: No edema Neuro: Alert and oriented Assessment and Plan (1) Breast cancer, left Narrative/Plan: 42-year-old female with stage 0 left breast cancer. 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 Options were discussed with the patient on multiple occasions regarding available surgical choices. Patient remains interested in breast conservation. Mastectomy with or without reconstruction was offered. We'll proceed with left breast wire localization lumpectomy, left breast wire localization biopsy, right breast wire localization biopsy. Risks of the procedure were discussed in detail with the patient. These were noted to include bleeding, infection, scarring, dimpling, possible need for further surgeries, recurrence. Patient understands and wishes to proceed. Status: Acute Code(s): C50.912 - MALIGNANT NEOPLASM OF UNSPECIFIED SITE OF LEFT FEMALE BREAST SNOMED Code(s): 817959574
[~2022-07-22 10:15] MED LIST: ALPRAZolam 0.5 MG TAB PO PRN; HEPARIN SODIUM,PORCINE/PF 5,000 UNIT/0.5 ML SYRINGE SQ PRN; LACTATED RINGERS 1,000 ML IV SCH; LIDOCAINE 1% (10MG/ML) FOR IV START INTRADERMA PRN; Pre Op ABX Message 1 EACH MISC MISCELLANE ONE
[2022-07-22] MEDS ORDERED: ONDANSETRON 4 MG/2 ML VIAL ONE (10:57)
[2022-07-22 11:28] VITALS: RESP 16
[2022-07-22] MEDS ORDERED: LIDOCAINE 1% INJ 10MG/ML (5 ML VIAL-PF) SQ ONE (11:39)
[2022-07-22] MEDS ORDERED: DEXAMETHASONE SOD PHOSPHATE 4 MG/ML 1 ML VIAL IVP ONE (12:44)
[2022-07-22] MEDS ORDERED: MIDAZOLAM 2 MG/2 ML VIAL IVP ONE (12:44)
[2022-07-22] MEDS ORDERED: SUCCINYLCHOLINE CHLORIDE 200 MG/10 ML VIAL IV ONE (13:31)
[2022-07-22] MEDS ORDERED: PROPOFOL 10 MG/ML 20 ML VIAL IV ONE (13:31)
[2022-07-22] MEDS ORDERED: LIDOCAINE 2% INJ 20 MG/ML (2 ML VIAL) ONE (13:31)
[2022-07-22] MEDS ORDERED: fentaNYL (PF) 50 MCG/ML 2 ML AMP ONE (13:31)
[2022-07-22] MEDS ORDERED: ceFAZolin 1,000 MG VIAL ONE (13:31)
[2022-07-22] MEDS ORDERED: SODIUM CHLORIDE 0.9% 100 ML BAG ONE (13:31)
[2022-07-22] MEDS ORDERED: MIDAZOLAM 2 MG/2 ML VIAL ONE (13:31)
[2022-07-22] MEDS ORDERED: LIDOCAINE 4% LTA KIT (4 ML) TOPICAL ONE (13:31)
[2022-07-22] MEDS ORDERED: ePHEDrine 50 MG/ML 1 ML VIAL ONE (13:31)
[2022-07-22] MEDS ORDERED: BUPIVACAIN-EPI 0.25%-1:200,000 30 ML VIAL SQ ONE ×3 (13:59→14:49)
[2022-07-22] MEDS ORDERED: LACTATED RINGERS 1,000 ML IV ONE (14:48)
[2022-07-22] MEDS ORDERED: HYDROmorphone 1 MG/ML 1 ML SYRINGE IVP PRN (14:58)
[2022-07-22] MEDS ORDERED: HYDROcodone/APAP 5-325MG 1 EACH TAB PO PRN (14:58)
[2022-07-22] MEDS ORDERED: HYDROmorphone 0.5 MG/0.5 ML SYRINGE IVP PRN (14:58)
[2022-07-22] MEDS ORDERED: ACETAMINOPHEN TAB 325 MG TAB PO PRN (14:58)
[2022-07-22] MEDS ORDERED: NALOXONE 0.4 MG/ML 1 ML VIAL IV PRN (14:58)
--- NOTE | 2022-07-22 15:16 | P.OP ---
Date of Procedure: 07/22/22 Procedure(s) Performed: PREOPERATIVE DIAGNOSIS: Left breast cancer, abnormal mammogram right breast, abnormal mammogram left breast POSTOPERATIVE DIAGNOSIS: Same PROCEDURE: Left Breast wire localization lumpectomy, left breast wire localization biopsy, right breast where localization biopsy SURGEON: Juan EBL: 10 mL ANESTHESIA: General COMPLICATIONS: None OPERATIVE PROCEDURE: Patient was placed on the operating room table in the supine position. Both breasts were prepped and draped sterilely. The right breast was first addressed. The patient had a wire entering the breast in the upper-outer quadrant. A curvilinear incision was made along the areola. Dissection through the saphenous tissues until the wire was identified and brought out through this incision site. A wire localization biopsy that took place with approximately 1.5-2 cm margins around the clip placement. The specimen was painted the appropriate colors and sent for specimen radiograph. The clip was present. The subcutaneous tissues were closed using interrupted 3- 0 Vicryl sutures. The skin was closed using a running 4-0 Monocryl suture. Later skin glue was applied. The left breast was then addressed. The patient had 2 wires entering the left breast from the superior location one medial and one lateral. The medial wire was localizing the DCIS. A curvilinear incision was made in the upper quadrant between the 2 wire entrance site. Dissection through the subcu breast tissue took place until the wires were able to be brought out through the spot. A lumpectomy was then performed around the medial wire and this was extended to include a biopsy around the lateral wire site. This one specimen was painted the appropriate colors. Specimen radiograph again confirmed both clips present. Clips were used to identify the lumpectomy cavity. The subcutaneous tissues were closed using 3-0 Vicryl sutures. The sk in was closed using a running 4-0 Monocryl stitch. Skin glue was then applied. DISPOSITION: Stable to recovery room
[2022-07-22] MEDS: HYDROmorphone 0.5 MG/0.5 ML SYRINGE IVP PRN ×2 (15:17→15:29)
[2022-07-22 15:25] VITALS: TEMP 97
[2022-07-22 16:56] VITALS: BP 114/72; PULSE 72
--- NOTE | 2022-08-01 09:49 | MM ---
Pathology Description: Approach: CC FA Needle Type: 5 cm Kopan The procedure of needle localization with wire placement and than surgical excision was explained to the patient. Benefits, alternatives, and risks were discussed. An informed consent was then obtained. The site of biopsy-proven 11:00 LCIS and ribbon clip was targeted for needle localization. The shortest pathway for procedure was chosen. Shortest pathway was a CC from above approach. The overlying skin was prepped and draped in usual sterile fashion. Lidocaine was used as anesthetic into the skin and subcutaneous tissue up to the level of area of concern. A 5 cm Kopan's needle was used. It was placed via a CC from above approach under mammographic guidance. Subsequent 90 degrees mammogram show the needle to be in satisfactory position relative to the targeted area. At this point, wire was placed and the needle was withdrawn. The wire was fixed to patient's skin. Images were marked for surgeon. The patient tolerated the procedure well without any immediate complication. The patient was kept in the radiology department for short stay after the procedure and then taken to surgery for surgical excision. Targeted clip and wire are identified in specimen mammogram. The patient was kept in hospital for short stay after the procedure and then discharged home in stable condition. Impression: Successful, uncomplicated needle localization with wire placement and surgical excision of biopsy-proven site of LCIS 11:00 right breast, full pathology results to follow. Pathology Results: Result: Malignant, Invasive ductal carcinoma. A. RIGHT BREAST, NEEDLE LOCALIZATION EXCISION: Invasive moderately differentiated ductal carcinoma (Grade 2), margins negative. 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 Extensive lobular neoplasia (ALH/LCIS). See Surgical Pathology Cancer Case Summary and Comment. B. LEFT BREAST, NEEDLE LOCALIZATION EXCISION: Focal severely atypical ductal hyperplasia (ADH) bordering on low grade DCIS and flat epithelial atypia (FEA) adjacent to previous biopsy site. FEA extends to the superior margin. Background fibrocystic changes, previous biopsy site and focal atypical lobular hyperplasia (ALH). Small intraductal papilloma not involving the marign. Overall Assessment: Malignant Management: Surgical Consultation of both breasts. Diagnostic Mammogram of both breasts in 6 months. Electronically signed and approved by: Marliu Mendoza M.D. Radiologist
--- NOTE | 2022-08-01 09:53 | MM ---
Pathology Description: Approach: CC FA Needle Type: 5 cm Kopan The procedure of needle localization with wire placement and than surgical excision was explained to the patient. Benefits, alternatives, and risks were discussed. An informed consent was then obtained. Bracketing technique was utilized. We note the segmental area of calcifications. Posterior upper inner quadrant clip at the site of biopsy-proven DCIS. Anterior 12-1 o'clock clip at the site of biopsy-proven ALH. The shortest pathway for procedure was chosen. Shortest pathway was a CC from above approach. The overlying skin was prepped and draped in usual sterile fashion. Lidocaine was used as anesthetic into the skin and subcutaneous tissue up to the level of area of concern. For the posterior site, a 9 cm Kopan's needle was used. It was placed via a superior approach under mammographic guidance. An anterior site, a 5 cm Kopan's needle was used. It was placed via a superior approach under mammographic guidance. Subsequent 90 degrees mammogram show the needle to be in satisfactory position relative to the targeted area. At this point, wire was placed and the needle was withdrawn. The wire was fixed to patient's skin. Images were marked for surgeon. The patient tolerated the procedure well without any immediate complication. The patient was kept in the radiology department for short stay after the procedure and then taken to surgery for surgical excision. Targeted clips, calcifications, and both wires are identified in specimen mammogram. The patient was kept in hospital for short stay after the procedure and then discharged home in stable condition. IMPRESSION: Successful, uncomplicated needle bracketing with wire placement and surgical excision of segmental region of calcifications in the left breast. Medial posterior site revealing DCIS and anterior central site revealing ALH on prior biopsies. Full pathology results to follow. Pathology Results: Result: High risk, Atypical ductal hyperplasia. A. RIGHT BREAST, NEEDLE LOCALIZATION EXCISION: Invasive moderately differentiated ductal carcinoma (Grade 2), margins negative. 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 Extensive lobular neoplasia (ALH/LCIS). See Surgical Pathology Cancer Case Summary and Comment. B. LEFT BREAST, NEEDLE LOCALIZATION EXCISION: Focal severely atypical ductal hyperplasia (ADH) bordering on low grade DCIS and flat epithelial atypia (FEA) adjacent to previous biopsy site. FEA extends to the superior margin. Background fibrocystic changes, previous biopsy site and focal atypical lobular hyperplasia (ALH). Small intraductal papilloma not involving the marign. Pathology Description: Approach: CC FA Needle Type: 9 cm Jamey Overall Assessment: High risk Management: Surgical Consultation of both breasts. Diagnostic Mammogram of both breasts in 6 months. Electronically signed and approved by: Marilu Mendoza M.D. Radiologist
== END 2022-07-22 16:50 | disposition home or self-care (01) ==
LOC: OR 10:15
PROVIDERS: ATTEND Surgery
DX: D05.10 Intraductal carcinoma in situ of unspecified breast (principal)
CPT/HCPCS: 81025; 88342; 88307; 88341; 76098 ×2; 19281; 19282; J2250; J0330; J1100; J2405; J0690; J2001 ×2; J3010; J2704; J1170; J1790; J1644

== ENCOUNTER 2022-09-22 07:44 | Day surgery (SDC) | payer OTHER ==
[2022-09-05 12:22] VITALS: BMI 27.2
[~2022-09-22 07:44] MED LIST changes: +ACETAMINOPHEN TAB 500 MG TAB PO PRN; +DEXAMETHASONE SOD PHOSPHATE 4 MG/ML 1 ML VIAL IV ONE; +HYDROmorphone 0.5 MG/0.5 ML SYRINGE IVP PRN; +METOCLOPRAMIDE 5 MG/ML 2 ML VIAL IVP PRN; +ONDANSETRON 4 MG/2 ML VIAL IVP ONE
[2022-09-22] MEDS ORDERED: LACTATED RINGERS 1,000 ML IV ONE (08:16)
[2022-09-22 08:38] VITALS: TEMP 97.6
[2022-09-22] MEDS ORDERED: ONDANSETRON 4 MG/2 ML VIAL ONE (08:41)
[2022-09-22] MEDS ORDERED: MIDAZOLAM 2 MG/2 ML VIAL IVP ONE (09:01)
--- NOTE | 2022-09-22 09:01 | P.GSHP ---
History of Present Illness H&P Date: 09/22/22 Chief Complaint: Right breast cancer 42-year-old female well known to our service. 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 She underwent left breast lumpectomy with 2 wire sites one specimen, and right breast wire loc alization biopsy in July. Pathology from the left breast showed no residual malignancy. 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 Size of DCIS 27 mm. Cancer was ER/CA positive HER-2/keiry equivocal. It was negative by FISH testing. Patient was seen by oncology and radiation oncology. Patient does have a family history of breast cancer in her mother. Patient had genetic testing done through oncology. A variation of unknown significance was identified. Patient I have discussed these findings by phone on a few occasions. She is here today for right breast re-lumpectomy with sentinel lymph node biopsy on the right hand side. Patient was previously scheduled but had to cancel surgery because of a family . Past Medical History Past Medical History: Cancer Additional Past Medical History / Comment(s): hx stomach ulcers, susana breast cancer, snores, kidney stone., states episode of low heart rate and had heart monitor check by [facility]., pain from uterine fibroids. History of Any Multi-Drug Resistant Organisms: None Reported Past Surgical History: Breast Surgery, Orthopedic Surgery Additional Past Surgical History / Comment(s): ankle surgery, laparoscopy, 07/22/22 left breast lumpectomy & right breast bx. Past Anesthesia/Blood Transfusion Reactions: No Reported Reaction Smoking Status: Former smoker - Past Family History Mother Family Medical History: Cancer, Coronary Artery Disease (CAD) Additional Family Medical History / Comment(s): breast and brain cancer Father Family Medical History: Deep Vein Thrombosis (DVT) Medications and Allergies Home Medications Medication Instructions Recorded Confirmed Type Acetaminophen-Codeine 300-30mg 1 tab PO Q6H PRN 04/11/22 09/22/22 History [Tylenol w/codeine #3] ALPRAZolam [Xanax] 0.5 mg PO TID PRN 06/23/22 09/22/22 History Allergies Allergy/AdvReac Type Severity Reaction Status Date / Time ibuprofen [From Motrin] AdvReac ULCERS Verified 03/20/23 08:26 Surgical - Exam Vital Signs Temp Pulse Resp BP Pulse Ox 97.6 F 64 16 128/61 98 09/22/22 08:16 09/22/22 08:16 09/22/22 08:16 09/22/22 08:16 09/22/22 08:16 Physical exam: General: Well-developed, well-nourished HEENT: Normocephalic, sclerae nonicteric Right breast: Previous scar noted, no adenopathy Left breast: Previous scars noted Abdomen: Nontender, nondistended Extremities: No edema Neuro: Alert and oriented Assessment and Plan (1) Breast cancer, right Narrative/Plan: 42-year-old female with stage 0 left breast cancer and now recent findings of stage I right breast cancer with extensive DCIS and positive margins on recent biopsy. We'll proceed with right breast re-lumpectomy, right breast sentinel lymph node biopsy/injection at this time. Risks of bleeding, infection, scarring, possible need for further surgery, recurrence, seroma, numbness, weakness reviewed. She understands and wishes to proceed. Current Visit: Yes Status: Acute Code(s): C50.911 - MALIGNANT NEOPLASM OF UNSP SITE OF RIGHT FEMALE BREAST SNOMED Code(s): 465800914
--- NOTE | 2022-09-22 09:02 | P.NAPBC ---
NAPBC Queries - NAPBC Queries Was patient's case review presented at [facility] tumor board? If no, comment.: Yes Was patient's pathology reviewed at [facility]? If no, comment.: Yes Was breast conservation surgery offered? If no, comment.: Yes Was sentinel node biopsy offered? If no, comment.: Yes Was diagnosis confirmed by percutaneous core biopsy? If no, comment.: Yes Is patient mastectomy patient?: No Was a preop referral to reconstructive surgeon offered?: Yes Clinical Stage: Right 1, left 0
[2022-09-22] MEDS ORDERED: MIDAZOLAM 2 MG/2 ML VIAL IV PRN (10:11)
[2022-09-22] MEDS ORDERED: LIDOCAINE 1% (10MG/ML) FOR IV START INTRADERMA PRN (10:11)
[2022-09-22] MEDS ORDERED: LACTATED RINGERS 1,000 ML IV SCH (10:11)
[2022-09-22] MEDS ORDERED: DEXAMETHASONE SOD PHOSPHATE 4 MG/ML 1 ML VIAL IV ONE (10:11)
[2022-09-22] MEDS ORDERED: ONDANSETRON 4 MG/2 ML VIAL IVP ONE (10:11)
[2022-09-22] MEDS ORDERED: PROPOFOL 10 MG/ML 20 ML VIAL IV ONE (10:59)
[2022-09-22] MEDS ORDERED: MIDAZOLAM 2 MG/2 ML VIAL ONE (10:59)
[2022-09-22] MEDS ORDERED: LIDOCAINE 2% INJ 20 MG/ML (2 ML VIAL) ONE (10:59)
[2022-09-22] MEDS ORDERED: SUCCINYLCHOLINE CHLORIDE 200 MG/10 ML VIAL IV ONE (10:59)
[2022-09-22] MEDS ORDERED: fentaNYL (PF) 50 MCG/ML 2 ML AMP ONE (10:59)
[2022-09-22] MEDS ORDERED: HYDROmorphone (PF) 1 MG/ML ONE (10:59)
[2022-09-22] MEDS ORDERED: ePHEDrine 50 MG/ML 1 ML VIAL ONE (10:59)
[2022-09-22] MEDS ORDERED: SODIUM CHLORIDE 0.9% 50 ML with ceFAZolin 2,000 MG IV ONE ×2 (11:20)
[2022-09-22] MEDS ORDERED: METHYLENE BLUE 50 MG/10 ML AMPUL INJ ONE (11:30)
[2022-09-22] MEDS ORDERED: BUPIVACAINE (PF) 0.25% 30 ML VIAL SQ ONE ×3 (11:31→12:10)
[2022-09-22] MEDS ORDERED: HYDROmorphone 1 MG/ML 1 ML SYRINGE IVP PRN (12:29)
[2022-09-22] MEDS ORDERED: HYDROmorphone 0.5 MG/0.5 ML SYRINGE IVP PRN (12:29)
[2022-09-22] MEDS ORDERED: HYDROcodone/APAP 5-325MG 1 EACH TAB PO PRN (12:29)
[2022-09-22] MEDS ORDERED: NALOXONE 0.4 MG/ML 1 ML VIAL IV PRN (12:29)
[2022-09-22] MEDS ORDERED: ACETAMINOPHEN TAB 325 MG TAB PO PRN (12:29)
--- NOTE | 2022-09-22 12:42 | P.OP ---
Date of Procedure: 09/22/22 Procedure(s) Performed: PREOPERATIVE DIAGNOSIS: Right breast cancer POSTOPERATIVE DIAGNOSIS: Same PROCEDURE: Right Breast re-lumpectomy with sentinel lymph node biopsy SURGEON: Juan EBL: Minimal ANESTHESIA: General COMPLICATIONS: None OPERATIVE PROCEDURE: Patient was placed on the operating room table in the supine position. 2 mL of methylene blue was injected into the subareolar space. The breast was then massaged for 5 minutes. The breast was prepped and draped in usual sterile fashion. The right axilla was addressed at that time. The hot spot in the right axilla was identified. A small curvilinear incision was made using the scalpel. Dissection down through the subcutaneous tissues took place using electrocautery. Using the neoprobe I identified a total of 3 sentinel lymph nodes. 1 of these was blue in color. These had benign exam characteristics. These were all removed and sent to pathology for permanent sectioning. The surgical site was inspected and no bleeding was seen. The subcutaneous tissues were closed using 3-0 Vicryl sutures. The skin was closed using 4-0 Monocryl sutures. The previous scar in the periareolar location from 9 to 12:00 right breast was then re-incised. Dissection through the breast tissue took place into the upper outer quadrant region where there was a palpation the scar from previous lumpectomy noted. As I was dissecting into the tissues I entered into what I thought represented the seroma cavity. I then backed out a short ways and excised this section. The additional portion of tissue was noted anteriorly that felt consistent with previous scar tissue from prior lumpectomy. A total of 3 portions of the breast in the upper outer quadrant were excised and painted the appropriate 6 colors. I did not paint the breast tissue where the pieces overlapped one another. Clips were used to identify the lumpectomy cavity. The subcutaneous tissues were closed using 3-0 Vicryl sutures. The skin was closed using a running 4-0 Monocryl stitch. Skin glue was then applied. DISPOSITION: Stable to recovery room
[2022-09-22] MEDS: HYDROmorphone 0.5 MG/0.5 ML SYRINGE IVP PRN ×3 (12:45→13:07)
[2022-09-22 15:17] VITALS: BP 104/67; PULSE 49; RESP 16
--- NOTE | 2022-09-23 16:03 | NM ---
EXAMINATION TYPE: NM sentinel node injection DATE OF EXAM: 09/22/2022 COMPARISON: NONE HISTORY: Left sided breast cancer. TECHNIQUE AND FINDINGS: The procedure of sentinel lymph node injection was explained to the patient. The benefits, alternatives, and risks were discussed. An informed consent was then obtained. Overlying skin is cleaned with sterile alcohol. Following this, 475 uCi Tc99m Tilmanocept was inject ed in the upper outer aspect of the left nipple intradermally. The patient tolerated the procedure well without any immediate complication. The patient was kept in the radiology department for short stay after the procedure and then taken to surgery for surgical p rocedure what is presumed intraoperative gamma probe will be used for sentinel lymph node detection. IMPRESSION: Left breast radiotracer injection for sentinel node localization as above.
== END 2022-09-22 15:49 | disposition home or self-care (01) ==
LOC: OR 07:44
PROVIDERS: ATTEND Surgery
DX: C50.411 Malignant neoplasm of upper-outer quadrant of right female breast (principal); Z17.0 Estrogen receptor positive status [ER+]; Z85.3 Personal history of malignant neoplasm of breast; F41.9 Anxiety disorder, unspecified; Z80.3 Family history of malignant neoplasm of breast; Z87.19 Personal history of other diseases of the digestive system; Z87.442 Personal history of urinary calculi; Z87.42 Personal history of other diseases of the female genital tract; Z90.12 Acquired absence of left breast and nipple; Z98.890 Other specified postprocedural states; Z87.891 Personal history of nicotine dependence; Z82.49 Family history of ischemic heart disease and other diseases of the circulatory system; Z80.8 Family history of malignant neoplasm of other organs or systems; Z83.2 Family history of diseases of the blood and blood-forming organs and certain disorders involving the immune mechanism; Z79.899 Other long term (current) drug therapy; Z88.6 Allergy status to analgesic agent
CPT/HCPCS: 19301; 38525; 38792; A9520; J2250; J0330; J1100; J2405; J0690; J3010; J1170 ×2; J2704; Q9968; J1644; J2001

== ENCOUNTER 2022-10-17 12:19 | Inpatient (IN) | payer OTHER ==
[2022-10-17] MEDS ORDERED: SODIUM CHLORIDE 0.9% 1,000 ML IV STA (12:52)
--- NOTE | 2022-10-17 12:56 | ED ---
General Adult HPI - General Chief complaint: Abdominal Pain Stated complaint: NVD Time Seen by Provider: 10/17/22 12:22 Source: EMS Limitations: no limitations - History of Present Illness Initial comments: Dictation was produced using [employer] dictation software. please excuse any grammatical, word or spelling errors. Chief Complaint: 42-year-old female presents emergency department for lower abdominal pain History of Present Illness: Patient is a 42-year-old female she has history of chronic abdominal pain allegedly secondary to fibroids. She presents to the emergency department for lower abdominal pain and diarrhea. Symptoms have been ongoing since this morning. States that she has chills. Denies any fevers. She does not report any history of appendectomy. She has a history of recently diagnosed breast cancer. EMS was called patient is brought to the ER. The ROS documented in this emergency department record has been reviewed and confirmed by me. Those systems with pertinent positive or negative responses have been documented in the HPI. All other systems are other negative and/or noncontributory. - Related Data Home Medications Medication Instructions Recorded Confirmed Acetaminophen-Codeine 300-30mg 1 tab PO Q6H PRN 04/11/22 10/17/22 [Tylenol w/codeine #3] ALPRAZolam [Xanax] 0.5 mg PO TID PRN 06/23/22 10/17/22 Vitamin B Complex 1 cap PO DAILY 10/17/22 10/17/22 Allergies Allergy/AdvReac Type Severity Reaction Status Date / Time ibuprofen [From Motrin] AdvReac ULCERS Verified 10/17/22 13:56 Review of Systems ROS Statement: Those systems with pertinent positive or pertinent negative responses have been documented in the HPI. ROS Other: All systems not noted in ROS Statement are negative. Past Medical History Past Medical History: Cancer Additional Past Medical History / Comment(s): hx stomach ulcers, susana breast cancer, snores, kidney stone., states episode of low heart rate and had heart monitor check by [facility]., pain from uterine fibroids. History of Any Multi-Drug Resistant Organisms: None Reported Past Surgical History: Breast Surgery, Orthopedic Surgery Additional Past Surgical History / Comment(s): ankle surgery, laparoscopy, 07/22/22 left breast lumpectomy & right breast bx. Past Anesthesia/Blood Transfusion Reactions: No Reported Reaction Past Psychological History: Anxiety Smoking Status: Former smoker - Past Family History Mother Family Medical History: Cancer, Coronary Artery Disease (CAD) Additional Family Medical History / Comment(s): breast and brain cancer Father Family Medical History: Deep Vein Thrombosis (DVT) General Exam - General Exam Comments Initial Comments: PHYSICAL EXAM: General Impression: Alert and oriented x3, acute distress secondary to alleged pain, tearful, demanding Dilaudid HEENT: Normocephalic atraumatic, extra-ocular movements intact, pupils equal and reactive to light bilaterally, mucous membranes moist. Cardiovascular: Heart regular rate and rhythm Chest: Able to complete full sentences, no retractions, no tachypnea Abdomen: abdomen soft, non-tender, non-distended, no organomegaly, patient is distracted with conversation she does not have any abdominal tenderness Musculoskeletal: Pulses present and equal in all extremities, no peripheral edema Motor: no focal deficits noted Neurological: CN II-XII grossly intact, no focal motor or sensory deficits noted Skin: Intact with no visualized rashes Psych: Normal affect and mood Limitations: no limitations Course Vital Signs 10/17/22 10/17/22 12:21 14:14 Temperature 97.7 F 98 F Pulse Rate 60 44 L Respiratory 18 19 Rate Blood Pressure 146/86 117/74 O2 Sat by Pulse 100 99 Oximetry EKG Findings - EKG Comments: EKG Findings:: My EKG interpretation: Ventricular rate 43, sinus bradycardia, TX interval 131, QRS 96, QTC 445. No TX prolongation, no QTC prolongation, no ST or T-wave changes noted. Overall, this EKG is unremarkable Medical Decision Making - Medical Decision Making 42-year-old female with past medical history of recently diagnosed breast cancer presents to the ER for reported suprapubic abdominal pain. report was reviewed. Patient has a overdose risk score of 380. Patient received a 7 day prescription with quantity of 30 Tylenol with codeine from primary care physician approximately 2 weeks ago. Was pt. sent in by a medical professional or institution (, PA, PROFILE STITCHING MACHINE OPERATOR, urgent care, hospital, or longterm...) When possible be specific @ -No Did you speak to anyone other than the patient for history (EMS, parent, family, police, friend...)? What history was obtained from this source @ -EMS Did you review nursing and triage notes (agree or disagree)? Why? @ -I reviewed and agree with nursing and triage notes Were old charts reviewed (outside hosp., previous admission, EMS record, old EKG, old radiological studies, urgent care reports/EKG's, longterm records)? Report findings @ -Prior chart was reviewed showing the patient recently had breast surgery with sentinel node biopsy. Biopsy results shows that patient recently diagnosed breast cancer. Differential Diagnosis (chest pain, altered mental status, abdominal pain women, abdominal pain men, vaginal bleeding, musculoskeletal, weakness, fever, dyspnea, syncope, headache, dizziness, GI bleed, back pain, seizure, CVA, palpatations, mental health)? @ -Differential Abdominal Pain Women: Appendicitis, Cholecystitis, diverticulosis, ischemic bowel, pancreatitis, hepatitis, UTI, gastroenteritis, AAA, incarcerated hernia, bowel obstruction, constipation, inflammatory bowel, hepatitis, peptic ulcer disease, splenic infarction, perforated viscus, vulvitis, ovarian torsion, PID, kidney stone, placenta abruption, this is not meant to be an all-inclusive list EKG interpreted by me (3pts min.). @ -See above X-rays interpreted by me (1pt min.). @ -None done CT interpreted by me (1pt min.). @ -Nonspecific colitis U/S interpreted by me (1pt. min.). @ -None done What testing was considered but not performed or refused? (CT, X-rays, U/S, labs)? Why? @ -None What meds were considered but not given or refused? Why? @ -None Did you discuss the management of the patient with other professionals (professionals i.e. , PA, PROFILE STITCHING MACHINE OPERATOR, lab, RT, psych nurse, child protective services social worker, salesperson recreational vehicles, teacher, hotel security officer, shelter case manager)? Give summary @ -Stress with Dr. Hector regarding admission. Dr. Muller refused. Case was discussed with Dr. Reyes for admission Was smoking cessation discussed for >3mins.? @ -No Was critical care preformed (if so, how long)? @ -No Were there social determinants of health that impacted care today? How? (Homelessness, low income, unemployed, alcoholism, drug addiction, transportation, low edu. Level, literacy, decrease access to med. care, longterm, rehab)? @ -No Was there de-escalation of care discussed even if they declined (Discuss DNR or withdrawal of care, Hospice)? DNR status @ -No What co-morbidities impacted this encounter? (DM, HTN, Smoking, COPD, CAD, Cancer, CVA, ARF, Chemo, Hep., AIDS, mental health diagnosis, sleep apnea, morbid obesity)? @ -None Was patient admitted / discharged? Hospital course, mention meds given and route, prescriptions, significant lab abnormalities, going to OR and other pertinent info. @ -42-year-old female presents emergency department for severe abdominal symptoms. CT shows nonspecific infectious versus inflammatory colitis. Labs unremarkable. Labs within acceptable limits. No leukocytosis. Disposition options were discussed with patient. She is agreeable for admission for symptom control. Undiagnosed new problem with uncertain prognosis? @ -No Drug Therapy requiring intensive monitoring for toxicity (Heparin, Nitro, Insulin, Cardizem)? @ -No Were any procedures done? @ -No Diagnosis/symptom? Acute, or Chronic, or Acute on Chronic? Uncomplicated (without systemic symptoms) or Complicated (systemic symptoms)? @ -1. Acute uncomplicated intractable abdominal pain Side effects of treatment? @ -No Exacerbation, Progression, or Severe Exacerbation? @ -No Poses a threat to life or bodily function? How? (Chest pain, USA, OR, pneumonia, PE, COPD, DKA, ARF, appy, cholecystitis, CVA, Diverticulitis, Homicidal, Suicidal, threat to staff... and all critical care pts) @ -No - Lab Data Result diagrams: 10/17/22 12:52 10/17/22 12:52 Lab Results 10/17/22 10/17/22 Range/Units 12:52 12:52 WBC 13.8 H (3.8-10.6) k/uL RBC 4.76 (3.80-5.40) m/uL Hgb 15.3 (11.4-16.0) gm/dL Hct 43.4 (34.0-46.0) % MCV 91.2 (80.0-100.0) fL MCH 32.1 (25.0-35.0) pg MCHC 35.2 (31.0-37.0) g/dL RDW 12.4 (11.5-15.5) % Plt Count 250 (150-450) k/uL MPV 8.8 Neutrophils % 86 % Lymphocytes % 9 % Monocytes % 2 % Eosinophils % 1 % Basophils % 0 % Neutrophils # 11.9 H (1.3-7.7) k/uL Lymphocytes # 1.3 (1.0-4.8) k/uL Monocytes # 0.3 (0-1.0) k/uL Eosinophils # 0.1 (0-0.7) k/uL Basophils # 0.0 (0-0.2) k/uL Sodium 137 (137-145) mmol/L Potassium 3.8 (3.5-5.1) mmol/L Chloride 107 (98-107) mmol/L Carbon Dioxide 21 L (22-30) mmol/L Anion Gap 9 mmol/L BUN 13 (7-17) mg/dL Creatinine 0.75 (0.52-1.04) mg/dL Est GFR (CKD-EPI)AfAm >90 (>60 ml/min/1.73 sqM) Est GFR (CKD-EPI)NonAf >90 (>60 ml/min/1.73 sqM) Glucose 149 H (74-99) mg/dL Calcium 9.3 (8.4-10.2) mg/dL Magnesium 1.9 (1.6-2.3) mg/dL Total Bilirubin 0.7 (0.2-1.3) mg/dL AST 20 (14-36) U/L ALT 22 (4-34) U/L Alkaline Phosphatase 86 (38-126) U/L Total Protein 7.7 (6.3-8.2) g/dL Albumin 4.6 (3.5-5.0) g/dL Lipase 84 (23-300) U/L HCG, Quant <2.4 mIU/mL Disposition Clinical Impression: Abdominal pain Disposition: ADMITTED IP TO THIS HOSP Condition: Fair Referrals: Belinda Sunshine MD [Primary Care Provider] - 1-2 days Decision Time: 14:24
[2022-10-17 13:06] LABS: Basophils % (A) 0 %; Eosinophils # (A) 0.1 k/uL (0-0.7); Eosinophils % (A) 1 %; HCT 43.4 % (34.0-46.0); HGB 15.3 gm/dL (11.4-16.0); Lymphocytes # (A) 1.3 k/uL (1.0-4.8); Lymphocytes % (A) 9 %; MCH 32.1 pg (25.0-35.0); MCHC 35.2 g/dL (31.0-37.0); MCV 91.2 fL (80.0-100.0); Mean Platelet Volume 8.8; Monocytes # (A) 0.3 k/uL (0-1.0); Monocytes % (A) 2 %; Neutrophils # (A) 11.9 k/uL (1.3-7.7); Neutrophils % (A) 86 %; Platelet Count 250 k/uL (150-450); RBC 4.76 m/uL (3.80-5.40); RDW 12.4 % (11.5-15.5); WBC 13.8 k/uL (3.8-10.6)
[2022-10-17] MEDS ORDERED: HYDROmorphone 1 MG/ML 1 ML SYRINGE IVP STA (13:10)
[2022-10-17 13:36] LABS: ALT 22 U/L (4-34); AST 20 U/L (14-36); African American GFR (CKD) >90 (>60 ml/min/1.73 sqM); Albumin 4.6 g/dL (3.5-5.0); Alkaline Phosphatase 86 U/L (38-126); Anion Gap 9 mmol/L; Blood Urea Nitrogen 13 mg/dL (7-17); Calcium 9.3 mg/dL (8.4-10.2); Carbon Dioxide 21 mmol/L (22-30); Chloride 107 mmol/L (98-107); Glucose 149 mg/dL (74-99); Lipase 84 U/L (23-300); Magnesium 1.9 mg/dL (1.6-2.3); Non-African American GFR(CKD) >90 (>60 ml/min/1.73 sqM); Potassium 3.8 mmol/L (3.5-5.1); Sodium 137 mmol/L (137-145); Total Bilirubin 0.7 mg/dL (0.2-1.3); Total Protein 7.7 g/dL (6.3-8.2)
--- NOTE | 2022-10-17 13:44 | CT ---
EXAMINATION TYPE: CT abdomen pelvis w con CT DLP: 1138.1 mGycm, Automated exposure control for dose reduction was used. DATE OF EXAM: 10/17/2022 1:25 PM COMPARISON: CT abdomen pelvis most recent from 01/15/2021. CLINICAL INDICATION:Female, 42 years old with history of severe abdominal pain; pain TECHNIQUE: Standard CT of the abdomen and pelvis following the administration of 100 cc of Isovue 3 00 IV contrast material. Coronal and sagittal reformats were performed. FINDINGS: LOWER CHEST: Unremarkable ABDOMEN LIVER: Unremarkable GALLBLADDER AND BILE DUCTS: Unremarkable. PANCREAS: Unremarkable. SPLEEN: Unremarkable. ADRENAL GLANDS: Unremarkable. KIDNEYS AND URETERS: No evidence of hydronephrosis. Nonobstructive 2 mm left renal calculus. The kidn eys enhance symmetrically. PELVIS BLADDER: Unremarkable REPRODUCTIVE: Retroverted uterus with lobulated enlarged contour consistent with fibroid changes. ABDOMEN & PELVIS STOMACH AND BOWEL: Stomach and duodenum are unremarkable. Circumferential wall thickening of the unde r distended sigmoid colon. The appendix is within normal limits. No evidence of bowel obstruction. PERITONEUM: No evidence of pneumoperitoneum or free fluid. VASCULATURE: No evidence of aortic aneurysm. MUSCULOSKELETAL: No acute osseous abnormalities LYMPH NODES: No gross evidence for lymphadenopathy. SOFT TISSUE/ABDOMINAL WALL: Unremarkable IMPRESSION: 1. Circumferential wall thickening the under distended sigmoid colon which relate to nonspecific col itis from infectious/inflammatory etiology versus underdistention. 2. Nonobstructive left renal calculus. 3. Fibroid changes of the uterus.
[2022-10-17 13:51] LABS: HCG,Quantitative Serum <2.4 mIU/mL
[2022-10-17] MEDS ORDERED: ACETAMINOPHEN TAB 325 MG TAB PO PRN (14:20)
[2022-10-17] MEDS ORDERED: NALOXONE 0.4 MG/ML 1 ML VIAL IV PRN (14:20)
[2022-10-17] MEDS: SODIUM CHLORIDE 0.9% 1,000 ML IV SCH (15:34)
[2022-10-17] MEDS ORDERED: ONDANSETRON 4 MG/2 ML VIAL IVP PRN ×2 (15:47→15:48)
[2022-10-17] MEDS ORDERED: HYDROcodone/APAP 5-325MG 1 EACH TAB PO PRN (15:47)
--- NOTE | 2022-10-17 15:49 | P.GSCN ---
History of Present Illness Consult date: 10/17/22 History of present illness: CHIEF COMPLAINT: Abdominal pain HISTORY OF PRESENT ILLNESS: This is a 42-year-old female who presented to the hospital with complaints of lower abdominal pain. She complains that the pain is across the lower abdomen but more so on the left lower quadrant and suprapubic area. Patient reports that pain started at 8 AM this morning and came on suddenly. It came on before she even ate breakfast. She she reports having multiple loose stools that are dark brown. Denies any blood in the stools. She has also been having nausea and vomiting and emesis was bilious in color. Patient has felt feverish with chills and sweats. White count elevated at 13.8 computed tomography scan had shown wall thickening in the sigmoid colon consider colitis. Patient has a known history of uterine fibroids and is scheduled for hysterectomy with her PULMONARY FELLOW. Patient has a history of right breast cancer and had a lumpectomy 09/22/2022. Patient denies any recent traveling denies any sick contacts. She's never had a colonoscopy. Denies any prior hist ory of colitis. Denies any chemo or radiation treatment. Patient denies any recent antibiotic use. Patient reports that she will be starting radiation treatment for her breast cancer. PAST MEDICAL HISTORY: See below PAST SURGICAL HISTORY: See below MEDICATIONS: See below ALLERGIES: See below SOCIAL HISTORY: No illicit drug use. REVIEW OF SYSTEMS: CONSTITUTIONAL: Denies fever or chills. HEENT: Denies blurred vision, vision changes, or eye pain. Denies hemoptysis CARDIOVASCULAR: Denies chest pain or pressure. RESPIRATORY: No shortness of breath. GASTROINTESTINAL: See HPI for pertinent findings HEMATOLOGIC: Denies bleeding disorders. GENITOURINARY: Denies any blood in urine or increased urinary frequency. SKIN: Denies pruitis. Denies rash. PHYSICAL EXAM: VITAL SIGNS: Reviewed GENERAL: Well-developed in no acute distress. HEENT: No sclera icterus. Extraocular movements grossly intact. Moist buccal mucosa. Head is atraumatic, normocephalic. No nasal drainage. ABDOMEN: Soft. Nondistended. Tenderness with palpation of the left lower quadrant and suprapubic area NEUROLOGIC: Alert and oriented. Cranial nerves II through XII grossly intact. LABORATORY DATA: WBC 13.8 Hgb 15.6 platelets 250 Sodium is 137 potassium 3.8 creatinine 0.75 Glucose 149 liver enzymes normal lipase 84 Quantitative hCG less than 2.4 IMAGING: Computed tomography scan abdomen and pelvis shows circumferential wall thickening underdistended sigmoid colon which relates to nonspecific colitis from infectious/inflammatory etiology versus underdistention. Nonobstructive left renal calculus. Fiber changes of the uterus. ASSESSMENT: 1. Left lower quadrant and suprapubic abdominal tenderness with wall thickening of the sigmoid colon and concerns of possible colitis 2. Leukocytosis 3. History of uterine fibroids with plans for hysterectomy with PULMONARY FELLOW 4. Recent lumpectomy for right breast cancer on 09/22/2022 PLAN: -Start IV antibiotics -Continue IV fluids -Check stool studies -Check urinalysis -Consult infectious disease -Continue clear liquid diet -Continue supportive care Thank you for this consultation Physician Reed Polisher note has been reviewed by physician. Signing provider agrees with the documented findings, assessment, and plan of care. REASON FOR CONSULTATION: Lower abdominal pain HISTORY OF PRESENT ILLNESS: The patient is a 42 year old female who comes in with new diarrhea and moderate to severe lower abdominal pain that started yesterday. She reports low appetite. No prior episodes. No prior colonoscopy. No blood in stools. Due to the severity of abdominal pain for over 24+ hours, general surgery is consulted. She has personal risk of exposure of H. pylori gastritis. PAST MEDICAL HISTORY: See list and reviewed PAST SURGICAL HISTORY: See list and reviewed MEDICATIONS: See list and reviewed ALLERGIES: See list and reviewed SOCIAL HISTORY: See list and reviewed FAMILY HISTORY: See list and reviewed REVIEW OF ORGAN SYSTEMS: CONSTITUTIONAL: No fevers or chills. No recent weight loss. EYES: Denies any trouble with vision. No glasses. HEENT: No difficulties with hearing. No nosebleeds. No difficulty swallowing. RESPIRATORY: Denies pneumonia. Denies any troubles with breathing or dyspnea on exertion. CARDIOVASCULAR: Denies any chest pain, palpitations, or recent heart attacks. GASTROINTESTINAL: Has change in bowel habits, new. No prior colonoscopy. History of stomach ulcers GENITOURINARY: Denies any blood in urine or increased urinary frequency. NEUROLOGICAL: Denies any numbness or tingling along the distal extremities. No seizure disorders or headaches. MUSCULOSKELETAL: Denies any back pain, stiffness or joint arthritis. SKIN: No current skin cancer. No rash. PSYCHIATRIC: Denies current depression or suicidal thoughts. Generalized anxiety disorder. ENDOCRINE: Denies current thyroid disorders. Denies any blood sugar glucose intolerance. HEME/LYMPHATIC: Denies any lumps and bumps around the neck. No recent deep venous thrombosis. ALLERGY/IMMUNOLOGY: No immunoglobulin therapy. No immune deficiencies. BREAST: Recent breast cancer. PHYSICAL EXAM: VITALS: Reviewed CONSTITUTIONAL: Well developed and in no acute distress. EYES: Conjuctivae without sclera icterus. Extraocular movements grossly intact. HEAD, EARS, NOSE, THROAT: Moist buccal mucosa. Head is atraumatic, normocephali c. Hears conversational speech. No nasal drainage. NECK: Supple. No JV distention. No thyroidomegaly. RESPIRATORY: Non-labored respirations and equal bilateral excursions. No gross wheezes. CARDIOVASCULAR: Palpable 2+ radial pulses. ABDOMEN: Tender lower abdomen. No peritonitis. LYMPH: No neck lymphadenopathy. MUSCULOSKELETAL: No clubbing cyanosis or edema SKIN: Warm and well perfused with good skin turgor. NEUROLOGIC: Cranial nerves II through XII grossly intact. No focal or lateral izing signs. PSYCH: Appropriate affect. Alert and oriented to person, place and time. Displays appropriate insight. CLINCAL LABS: Reviewed. WBC elevated over 13,000. IMAGING: Independently reviewed. CT of the abdomen and pelvis demonstrates diverticulosis. No free air. No bowel obstruction. Minimal inflammation involving the descending colon and sigmoid colon. This is my independent int erpretation. RADIOLOGY: Report reviewed with nonspecific colitis involving the sigmoid colons, circumferential wall thickening from CT of the abdomen and pelvis. ASSESSMENT: 1. Lower abdominal pain due to colitis 2. Leukocytosis 3. Anorexia PLAN: 1. IV fluid hydration advised 2. Recommend nothing by mouth except ice chips 3. Continue IV antibiotics Thank you for this kind consultation. Past Medical History Past Medical History: Cancer Additional Past Medical History / Comment(s): hx stomach ulcers, susana breast cancer and lumpectomy right lymphnodes, snores, kidney stone., states episode of low heart rate and had heart monitor check by [facility]., pain from uterine fibroids. History of Any Multi-Drug Resistant Organisms: None Reported Past Surgical History: Breast Surgery, Orthopedic Surgery Additional Past Surgical History / Comment(s): ankle surgery, laparoscopy, 07/22/22 left breast lumpectomy & right breast bx. Past Anesthesia/Blood Transfusion Reactions: No Reported Reaction Past Psychological History: Anxiety Smoking Status: Former smoker Past Alcohol Use History: None Reported Additional Past Alcohol Use History / Comment(s): quit smoking April 2022 Past Drug Use History: None Reported - Past Family History Mother Family Medical History: Cancer, Coronary Artery Disease (CAD) Additional Family Medical History / Comment(s): breast and brain cancer Father Family Medical History: Deep Vein Thrombosis (DVT) Medications and Allergies Home Medications Medication Instructions Recorded Confirmed Type Acetaminophen-Codeine 300-30mg 1 tab PO Q6H PRN 04/11/22 10/17/22 History [Tylenol w/codeine #3] ALPRAZolam [Xanax] 0.5 mg PO TID PRN 06/23/22 10/17/22 History Vitamin B Complex 1 cap PO DAILY 10/17/22 10/17/22 History Allergies Allergy/AdvReac Type Severity Reaction Status Date / Time ibuprofen [From Motrin] AdvReac ULCERS Verified 10/17/22 13:56 Surgical - Exam Vital Signs Temp Pulse Resp BP Pulse Ox 97.7 F 60 18 146/86 100 10/17/22 12:21 10/17/22 12:21 10/17/22 12:21 10/17/22 12:21 10/17/22 12:21 Results - Labs 10/17/22 12:52 10/17/22 12:52 Abnormal Lab Results - Last 24 Hours (Table) 10/17/22 10/17/22 Range/Units 12:52 12:52 WBC 13.8 H (3.8-10.6) k/uL Neutrophils # 11.9 H (1.3-7.7) k/uL Carbon Dioxide 21 L (22-30) mmol/L Glucose 149 H (74-99) mg/dL Diabetes panel 10/17/22 Range/Units 12:52 Sodium 137 (137-145) mmol/L Potassium 3.8 (3.5-5.1) mmol/L Chloride 107 (98-107) mmol/L Carbon Dioxide 21 L (22-30) mmol/L BUN 13 (7-17) mg/dL Creatinine 0.75 (0.52-1.04) mg/dL Glucose 149 H (74-99) mg/dL Calcium 9.3 (8.4-10.2) mg/dL AST 20 (14-36) U/L ALT 22 (4-34) U/L Alkaline Phosphatase 86 (38-126) U/L Total Protein 7.7 (6.3-8.2) g/dL Albumin 4.6 (3.5-5.0) g/dL Calcium panel 10/17/22 Range/Units 12:52 Calcium 9.3 (8.4-10.2) mg/dL Albumin 4.6 (3.5-5.0) g/dL Pituitary panel 10/17/22 Range/Units 12:52 Sodium 137 (137-145) mmol/L Potassium 3.8 (3.5-5.1) mmol/L Chloride 107 (98-107) mmol/L Carbon Dioxide 21 L (22-30) mmol/L BUN 13 (7-17) mg/dL Creatinine 0.75 (0.52-1.04) mg/dL Glucose 149 H (74-99) mg/dL Calcium 9.3 (8.4-10.2) mg/dL Adrenal panel 10/17/22 Range/Units 12:52 Sodium 137 (137-145) mmol/L Potassium 3.8 (3.5-5.1) mmol/L Chloride 107 (98-107) mmol/L Carbon Dioxide 21 L (22-30) mmol/L BUN 13 (7-17) mg/dL Creatinine 0.75 (0.52-1.04) mg/dL Glucose 149 H (74-99) mg/dL Calcium 9.3 (8.4-10.2) mg/dL Total Bilirubin 0.7 (0.2-1.3) mg/dL AST 20 (14-36) U/L ALT 22 (4-34) U/L Alkaline Phosphatase 86 (38-126) U/L Total Protein 7.7 (6.3-8.2) g/dL Albumin 4.6 (3.5-5.0) g/dL
[2022-10-17] MEDS: PIPERACILLIN-TAZOBACTAM 3.375 GM in SODIUM CHLORIDE 0.9% 100 ML IVPB SCH ×3 (16:19→22:10)
[2022-10-17] MEDS: HYDROmorphone 1 MG/ML 1 ML SYRINGE IVP PRN ×3 (16:19→23:45)
--- NOTE | 2022-10-17 17:00 | P.HPIM ---
History of Present Illness H&P Date: 10/17/22 Patient is a 42-year-old female with PMH of right-sided breast cancer, anxiety, bradycardia presents the ED for abdominal pain that started a day. Patient reports waking up with bilateral lower quadrant abdominal pain that was sharp and stabbing in nature. Pain was constant. Pain was 10 out of 10. Pain was associated with fever and chills along with bilious nausea and vomiting. She reported multiple episodes of watery diarrhea with blood which prompted her to come to the ED. She denies any dysuria. She denies any headache, lower extremity edema, cough, chest pain, shortness breath, palpitations. She denies any changes in appetite or weight. She denies any dizziness, numbness/weaknes s/tingling of the extremities. In the ED, she was noted to be bradycardic with heart rate of 44 and vital signs were otherwise stable. CBC showed leukocytosis of 13.8. CMP showed bicarb of 21 and glucose 149. Amylase and lipase negative. Urine negative. CT AP showed wall thickening of the sigmoid colon with nonobstructive left renal calculus and fibroid changes of the uterus. EKG showed sinus bradycardia with ventricular rate of 43. Patient is admitted for intractable abdominal pain, nausea and vomiting. She follows Dr. Martinez and Dr. Juan for her breast cancer. She has a PET scan coming up on 10/24. Pertinent positives and negatives as discussed in HPI, a complete review of systems was performed and all other systems are negative. General: non toxic, no distress, appears at stated age Derm: warm, dry Head: atraumatic, normocephalic, symmetric Eyes: EOMI, no lid lag, anicteric sclera Mouth: no lip lesion, mucus membranes moist Cardiovascular: Bradycardic, no murmur Lungs: CTA bilateral, no rhonchi, no rales , no accessory muscle use Abdominal: soft, tenderness to palpation of the bilateral lower quadrant without rebound, no guarding, no appreciable organomegaly Ext: no gross muscle atrophy, no edema, no contractures Neuro: no focal neuro deficits Psych: Alert, oriented, appropriate affect Colitis Leukocytosis Hyperglycemia Chronic conditions: Right-sided breast cancer, anxiety, bradycardia Based on my assessment of this patient, this patient meets a high complexity level of care. I have reviewed the following consultant electronics notes: None. I have reviewed the results of the following tests: CBC showed leukocytosis of 13.8. CMP showed bicarb of 21 and glucose 149. Amylase and lipase negative. Urine negative. CT AP showed wall thickening of the sigmoid colon with nonobstructive left renal calculus and fibroid changes of the uterus. I have ordered the following tests: Stool culture. UA with reflex to culture. CBC and BMP ordered for tomorrow morning. I have discussed the care of this patient with the following independent historian: None. I have independently interpreted the following test below: EKG showed sinus bradycardia with ventricular rate of 43 I have discussed the management of this patient with the following physician: Case was discussed with the ED physician and decision made to admit patient for symptomatically controlled along with IV antibiotics. This patient has a high risk of morbidity due to the following reasons: Patient has an acute diagnosis of abdominal pain related to colitis that poses a threat to life or bodily function. She reports her pain to be 10 out of 10 in severity. She has been started on Dilaudid 1 mg IV every 3 hours as needed for severe pain. Zofran 4 mg IV every 6 hours as needed for nausea and vomiting. Start Zosyn 3.375 g IV twice a day. Start normal saline at 75 mL per hour. Obtain stool culture. Clear liquid diet and advance. Surgery has been consulted for further management of this patient. Patient names her decision maker if she can't make decisions for herself. Patient will like to be full code. Lovenox for DVT prophylaxis. Past Medical History Past Medical History: Cancer Additional Past Medical History / Comment(s): hx stomach ulcers, [place] breast cancer and lumpectomy right lymphnodes, snores, kidney stone., states episode of low heart rate and had heart monitor check by [facility]., pain from uterine fibroids. History of Any Multi-Drug Resistant Organisms: None Reported Past Surgical History: Breast Surgery, Orthopedic Surgery Additional Past Surgical History / Comment(s): ankle surgery, laparoscopy, 07/22/22 left breast lumpectomy & right breast bx. Past Anesthesia/Blood Transfusion Reactions: No Reported Reaction Past Psychological History: Anxiety Smoking Status: Former smoker Past Alcohol Use History: None Reported Additional Past Alcohol Use History / Comment(s): quit smoking April 2022 Past Drug Use History: None Reported - Past Family History Mother Family Medical History: Cancer, Coronary Artery Disease (CAD) Additional Family Medical History / Comment(s): breast and brain cancer Father Family Medical History: Deep Vein Thrombosis (DVT) Medications and Allergies Home Medications Medication Instructions Recorded Confirmed Type Acetaminophen-Codeine 300-30mg 1 tab PO Q6H PRN 04/11/22 10/17/22 History [Tylenol w/codeine #3] ALPRAZolam [Xanax] 0.5 mg PO TID PRN 06/23/22 10/17/22 History Vitamin B Complex 1 cap PO DAILY 10/17/22 10/17/22 History Allergies Allergy/AdvReac Type Severity Reaction Status Date / Time ibuprofen [From Motrin] AdvReac ULCERS Verified 10/17/22 13:56 Physical Exam Vitals: Vital Signs Temp Pulse Pulse Resp BP BP Pulse Ox 10/17/22 15:17 97.3 F L 56 L 14 115/65 99 10/17/22 14:14 98 F 44 L 19 117/74 99 10/17/22 12:21 97.7 F 60 18 146/86 100 Intake and Output 10/17/22 10/17/22 10/17/22 06:59 14:59 22:59 Other: Weight 88.451 kg Results CBC & Chem 7: 10/17/22 12:52 10/17/22 12:52 Labs: Abnormal Lab Results - Last 24 Hours (Table) 10/17/22 10/17/22 Range/Units 12:52 12:52 WBC 13.8 H (3.8-10.6) k/uL Neutrophils # 11.9 H (1.3-7.7) k/uL Carbon Dioxide 21 L (22-30) mmol/L Glucose 149 H (74-99) mg/dL Thrombosis Risk Factor Assmnt - Choose All That Apply Each Factor Represents 1 point: Age 41-60 years, Minor surgery planned Thrombosis Risk Factor Assessment Total Risk Factor Score: 2 Thrombosis Risk Factor Assessment Level: Low Risk
[2022-10-17 20:09] LABS: Appearance,Urine Clear (Clear); Bilirubin,Urine Negative (Negative); Blood,Urine Negative (Negative); Color,Urine Light Yellow; Glucose,Urine (UA) Negative (Negative); Ketones,Urine 1+ (Negative); Leukocyte Esterase,Urine Negative (Negative); Nitrite,Urine Negative (Negative); Protein,Urine Negative (Negative); Specific Gravity,Urine 1.035 (1.001-1.035); Urobilinogen,Urine <2.0 mg/dL (<2.0)
[2022-10-17] MEDS ORDERED: PIPERACILLIN-TAZOBACTAM 3.375 GM in SODIUM CHLORIDE 0.9% 100 ML IVPB SCH (21:00)
[2022-10-17] MEDS: METOCLOPRAMIDE 5 MG/ML 2 ML VIAL IVP PRN (21:50)
[2022-10-18] MEDS: HYDROmorphone 1 MG/ML 1 ML SYRINGE IVP PRN ×5 (05:19→20:40)
[2022-10-18] MEDS: SODIUM CHLORIDE 0.9% 1,000 ML IV SCH ×2 (05:20→15:27)
[2022-10-18] MEDS: PIPERACILLIN-TAZOBACTAM 3.375 GM in SODIUM CHLORIDE 0.9% 100 ML IVPB SCH ×2 (05:20→15:27)
[2022-10-18] MEDS: METOCLOPRAMIDE 5 MG/ML 2 ML VIAL IVP PRN (06:37)
[2022-10-18] MEDS: ENOXAPARIN 40 MG/0.4 ML SYRINGE SQ SCH (08:03)
--- NOTE | 2022-10-18 10:54 | P.PN ---
Subjective Progress Note Date: 10/18/22 CHIEF COMPLAINT: Lower abdominal pain HISTORY OF PRESENT ILLNESS: The patient is a 42 year old female who comes in with new diarrhea and moderate to severe lower abdominal pain that started yesterday and nonspecific colitis per computed tomography scan. At this time, no nausea or vomiting. She does report low appetite. No blood in stools. REVIEW OF ORGAN SYSTEMS: CONSTITUTIONAL: No fevers or chills. No recent weight loss. GASTROINTESTINAL: Has change in bowel habits, new. No prior colonoscopy. History of stomach ulcers PSYCHIATRIC: Denies current depression or suicidal thoughts. Generalized anxiety disorder. ENDOCRINE: Denies current thyroid disorders. Denies any blood sugar glucose i ntolerance. BREAST: Recent breast cancer. PHYSICAL EXAM: VITALS: Reviewed CONSTITUTIONAL: Well developed and in no acute distress. EYES: Conjuctivae without sclera icterus. Extraocular movements grossly intact. HEAD, EARS, NOSE, THROAT: Moist buccal mucosa. Head is atraumatic, normocephalic. Hears conversational speech. No nasal drainage. RESPIRATORY: Non-labored respirations and equal bilateral excursions. No gross wheezes. CARDIOVASCULAR: Palpable 2+ radial pulses. ABDOMEN: Tender lower abdomen. No peritonitis. MUSCULOSKELETAL: No clubbing cyanosis or edema SKIN: Warm and well perfused with good skin turgor. NEUROLOGIC: Cranial nerves II through XII grossly intact. No focal or lateralizing signs. PSYCH: Appropriate affect. Alert and oriented to person, place and time. Displays appropriate insight. CLINCAL LABS: Reviewed. ASSESSMENT: 1. Lower abdominal pain due to colitis 2. Leukocytosis 3. Anorexia PLAN: 1. Recommend nothing by mouth except ice chips and popsicles due to anorexia 2. Continue IV antibiotics 3. Trial of low fiber diet is abdominal pain improves and leukocytosis resolves 4. Disposition 24-48 hours pending clinical course 5. No colonoscopy plan at this time due to acute colitis pending clinical improvement. Colonoscopy may be done as outpatient Care plan reviewed for which patient demonstrated understanding and agreed. All questions were addressed. Objective - Vital Signs Vital signs: Vital Signs Temp 98.0 F 10/18/22 07:00 Pulse 60 10/18/22 07:00 Resp 16 10/18/22 07:00 BP 95/55 10/18/22 07:00 Pulse Ox 100 10/18/22 07:00 FiO2 Intake & Output 10/17/22 10/18/22 10/18/22 18:59 06:59 18:59 Weight 88.451 kg Other: # Voids 2 - Labs CBC & Chem 7: 10/17/22 12:52 10/17/22 12:52 Labs: Abnormal Lab Results - Last 24 Hours (Table) 10/17/22 10/17/22 10/17/22 Range/Units 12:52 12:52 18:56 WBC 13.8 H (3.8-10.6) k/uL Neutrophils # 11.9 H (1.3-7.7) k/uL Carbon Dioxide 21 L (22-30) mmol/L Glucose 149 H (74-99) mg/dL Urine Ketones 1+ H (Negative) Microbiology - Last 24 Hours (Table) 10/17/22 16:25 Stool Culture - Preliminary Stool
--- NOTE | 2022-10-18 12:29 | P.PN ---
Subjective Progress Note Date: 10/18/22 Patient is a 42-year-old female with PMH of right-sided breast cancer, anxiety, bradycardia presents the ED for abdominal pain that started a day. Patient reports waking up with bilateral lower quadrant abdominal pain that was sharp and stabbing in nature. Pain was constant. Pain was 10 out of 10. Pain was associated with fever and chills along with bilious nausea and vomiting. She reported multiple episodes of watery diarrhea with blood which prompted her to come to the ED. She denies any dysuria. She denies any headache, lower extremity edema, cough, chest pain, shortness breath, palpitations. She denies any changes in appetite or weight. She denies any dizziness, numbness/weakness/tingling of the extremities. In the ED, she was noted to be bradycardic with heart rate of 44 and vital signs were otherwise stable. CBC showed leukocytosis of 13.8. CMP showed bicarb of 21 and glucose 149. Amylase and lipase negative. Urine negative. CT AP showed wall thickening of the sigmoid colon with nonobstructive left renal calculus and fibroid changes of the uterus. EKG showed sinus bradycardia with ventricular rate of 43. Patient is admitted for intractable abdominal pain, nausea and vomiting. She follows Dr. Martinez and Dr. Juan for her breast cancer. She has a PET scan c oming up on 10/24. Patient was seen and examined this morning. No acute events overnight. No bowel movement today. She reports nausea but no vomiting. Currently reports abdominal pain, 5 out of 10 in severity well-controlled with Dilaudid. General: non toxic, no distress, appears at stated age Derm: warm, dry Head: atraumatic, normocephalic, symmetric Eyes: EOMI, no lid lag, anicteric sclera Mouth: no lip lesion, mucus membranes moist Cardiovascular: Bradycardic, no murmur Lungs: CTA bilateral, no rhonchi, no rales , no accessory muscle use Abdominal: soft, tenderness to palpation of the bilateral lower quadrant without rebound, no guarding, no appreciable organomegaly Ext: no gross muscle atrophy, no edema, no contractures Neuro: no focal neuro deficits Psych: Alert, oriented, appropriate affect Colitis Leukocytosis Hyperglycemia Chronic conditions: Right-sided breast cancer, anxiety, bradycardia Based on my assessment of this patient, this patient meets a moderate complexity level of care. I have reviewed the following outplacement consultant notes: Surgery note 10/18, nothing by mouth, continue IV antibiotics, trial of diet when pain improves, outpatient colonoscopy. I have reviewed the results of the following tests: Urinalysis negative for leukocyte esterase or nitrite. I have ordered the following tests: Stool culture. I have discussed the care of this patient with the following independent historian: None. I have independently interpreted the following test below: None. I have discussed the management of this patient with the following physician: None. This patient has a moderate risk of morbidity due to the following reasons: Patient has an acute diagnosis of abdominal pain related to colitis that poses a threat to life or bodily function. She reports her pain to be 5 out of 10 in severity. She will be continued on Dilaudid 1 mg IV every 3 hours as needed for severe pain. Zofran 4 mg IV every 6 hours as needed for nausea and vomiting. Continue Zosyn 3.375 g IV twice a day. Continue normal saline at 75 mL per hour. Obtain stool culture. Clear liquid diet and advance. Surgery has been consulted for further management of this patient. Patient names her decision maker if she can't make decisions for herself. Patient will like to be full code. Lovenox for DVT prophylaxis. Patient is pending clinical improvement. Anticipated discharge in 1-2 days depending on clinical course. Objective - Vital Signs Vital signs: Vital Signs Temp 98.0 F 10/18/22 07:00 Pulse 60 10/18/22 07:00 Resp 16 10/18/22 07:00 BP 95/55 10/18/22 07:00 Pulse Ox 100 10/18/22 07:00 FiO2 Intake & Output 10/17/22 10/18/22 10/18/22 18:59 06:59 18:59 Weight 88.451 kg Other: # Voids 2 - Labs CBC & Chem 7: 10/17/22 12:52 10/17/22 12:52 Labs: Abnormal Lab Results - Last 24 Hours (Table) 10/17/22 10/17/22 10/17/22 Range/Units 12:52 12:52 18:56 WBC 13.8 H (3.8-10.6) k/uL Neutrophils # 11.9 H (1.3-7.7) k/uL Carbon Dioxide 21 L (22-30) mmol/L Glucose 149 H (74-99) mg/dL Urine Ketones 1+ H (Negative) Microbiology - Last 24 Hours (Table) 10/17/22 16:25 Stool Culture - Preliminary Stool
[2022-10-18 13:25] LABS: Basophils # (A) 0.03 X 10*3/uL (0.00-0.10); Basophils % (A) 0.3 %; Eosinophils # (A) 0.07 X 10*3/uL (0.04-0.35); Eosinophils % (A) 0.8 %; HGB 12.5 g/dL (12.0-15.0); Immature Grans, Automated 0.2 %; Lymphocytes # (A) 2.54 X 10*3/uL (0.90-5.00); Lymphocytes % (A) 28.6 %; MCHC 34.7 g/dL (32.0-37.0); MCV 92.1 fL (80.0-97.0); Mean Platelet Volume 11.2 fL (9.5-12.2); Monocytes # (A) 0.74 X 10*3/uL (0.20-1.00); Monocytes % (A) 8.3 %; NRBC Per 100 WBC 0 /100 WBCS (0.0-0.0); Neutrophils # (A) 5.47 X 10*3/uL (1.80-7.70); Neutrophils % (A) 61.8 %; Platelet Count 201 X 10*3/uL (140-440); RBC 3.91 X 10*6/uL (4.10-5.20); RDW 12.4 % (11.5-14.5); WBC 8.87 X 10*3/uL (4.50-10.00)
[2022-10-18 13:37] LABS: African American GFR (CKD) 122.1 (60.0-200.0); Anion Gap 8.9 mmol/L (10.00-18.00); BUN/Creat Ratio 11.14 Ratio (12.00-20.00); Blood Urea Nitrogen 7.8 mg/dL (9.0-27.0); Calcium 8.4 mg/dL (8.7-10.3); Carbon Dioxide 21.1 mmol/L (20.0-27.5); Non-African American GFR(CKD) 105.4 (60.0-200.0); Potassium 3.3 mmol/L (3.5-5.5)
[2022-10-18] MEDS: ALPRAZolam 0.5 MG TAB PO PRN (22:38)
--- NOTE | 2022-10-18 23:26 | P.CONS ---
History of Present Illness - Reason for Consult Consult date: 10/18/22 - History of Present Illness Patient is a 42-year-old female with a past medical history for breast cancer status postlumpectomy and peptic ulcer disease presenting to the ER yesterday afternoon for evaluation of lower abdominal pain patient pain started the morning of presentation to the hospital describes the pain to be sharp in nature and almost 10 out of 10 in severity without any radiation patient has been complaining of associated diarrhea with that have multiple loose stools with no blood or mucus in the stool and and also having nausea and vomiting patient felt feverish with the symptom the patient presented to hospital on arrival to the ER patient was afebrile and no fever has been recorded subse quently patient did have vital 13.8 with a left shift kidney function was normal liver enzymes are normal urine is negative patient did have a CT of abdominal pelvis circumferential wall thickening of the sigmoid colon with concern for possible colitis versus underdistention patient was started on Zosyn infectious disease was consulted for further management of antibiotic therapy Past Medical History Past Medical History: Cancer Additional Past Medical History / Comment(s): hx stomach ulcers, [place] breast cancer and lumpectomy right lymphnodes, snores, kidney stone., states episode of low heart rate and had heart monitor check by [facility]., pain from uterine fibroids. History of Any Multi-Drug Resistant Organisms: None Reported Past Surgical History: Breast Surgery, Orthopedic Surgery Additional Past Surgical History / Comment(s): ankle surgery, laparoscopy, 07/22/22 left breast lumpectomy & right breast bx. Past Anesthesia/Blood Transfusion Reactions: No Reported Reaction Past Psychological History: Anxiety Smoking Status: Former smoker Past Alcohol Use History: None Reported Additional Past Alcohol Use History / Comment(s): quit smoking April 2022 Past Drug Use History: None Reported - Past Family History Mother Family Medical History: Cancer, Coronary Artery Disease (CAD) Additional Family Medical History / Comment(s): breast and brain cancer Father Family Medical History: Deep Vein Thrombosis (DVT) Medications and Allergies Home Medications Medication Instructions Recorded Confirmed Type Acetaminophen-Codeine 300-30mg 1 tab PO Q6H PRN 04/11/22 10/17/22 History [Tylenol w/codeine #3] ALPRAZolam [Xanax] 0.5 mg PO TID PRN 06/23/22 10/17/22 History Vitamin B Complex 1 cap PO DAILY 10/17/22 10/17/22 History Allergies Allergy/AdvReac Type Severity Reaction Status Date / Time ibuprofen [From Motrin] AdvReac ULCERS Verified 10/17/22 13:56 Physical Exam Vitals: Vital Signs Temp Pulse Pulse Resp BP BP Pulse Ox 10/18/22 07:00 98.0 F 60 16 95/55 100 10/18/22 03:05 98.2 F 57 L 15 104/61 99 10/17/22 15:17 97.3 F L 56 L 14 115/65 99 10/17/22 14:14 98 F 44 L 19 117/74 99 Intake and Output 10/17/22 10/18/22 10/18/22 22:59 06:59 14:59 Other: # Voids 2 Results CBC & Chem 7: 10/18/22 07:04 10/18/22 07:04 Labs: Abnormal Lab Results - Last 24 Hours (Table) 10/17/22 10/17/22 10/17/22 Range/Units 12:52 12:52 18:56 WBC 13.8 H (3.8-10.6) k/uL Neutrophils # 11.9 H (1.3-7.7) k/uL Carbon Dioxide 21 L (22-30) mmol/L Glucose 149 H (74-99) mg/dL Urine Ketones 1+ H (Negative) Microbiology - Last 24 Hours (Table) 10/17/22 16:25 Stool Culture - Preliminary Stool Assessment and Plan Plan: 1patient presented to hospital with lower abdominal pain patient did have diarrhea and vomiting did have elevated white count with evidence of colitis on the CT with concern for possible diverticulitis versus infectious colitis and question of possible food poisoning, will need to cover for the enteric gram- negative both aerobes and anaerobes 2-patient to continue the Zosyn while waiting for the culture to finalize We will follow on clinical condition and cultures to further adjust medication if needed Thank you for this consultation we will follow the patient along with you Time with Patient: Greater than 30
[2022-10-19] MEDS: HYDROmorphone 1 MG/ML 1 ML SYRINGE IVP PRN ×7 (00:23→23:22)
[2022-10-19] MEDS: PIPERACILLIN-TAZOBACTAM 3.375 GM in SODIUM CHLORIDE 0.9% 100 ML IVPB SCH ×2 (04:25→15:25)
[2022-10-19] MEDS: SODIUM CHLORIDE 0.9% 1,000 ML IV SCH ×2 (04:27→19:52)
[2022-10-19] MEDS: ENOXAPARIN 40 MG/0.4 ML SYRINGE SQ SCH (07:21)
[2022-10-19] MEDS ORDERED: POTASSIUM CHLORIDE ER 20 MEQ TAB.ER PO STA (08:31)
[2022-10-19] MEDS: ALPRAZolam 0.5 MG TAB PO PRN (09:48)
[2022-10-19] MEDS: METOCLOPRAMIDE 5 MG/ML 2 ML VIAL IVP PRN (13:04)
--- NOTE | 2022-10-19 13:17 | P.PN ---
Subjective Progress Note Date: 10/19/22 Patient is a 42-year-old female with PMH of right-sided breast cancer, anxiety, bradycardia presents the ED for abdominal pain that started a day. Patient reports waking up with bilateral lower quadrant abdominal pain that was sharp and stabbing in nature. Pain was constant. Pain was 10 out of 10. Pain was associated with fever and chills along with bilious nausea and vomiting. She reported multiple episodes of watery diarrhea with blood which prompted her to come to the ED. She denies any dysuria. She denies any headache, lower extremity edema, cough, chest pain, shortness breath, palpitations. She denies any changes in appetite or weight. She denies any dizziness, numbness/weakness/tingling of the extremities. In the ED, she was noted to be bradycardic with heart rate of 44 and vital signs were otherwise stable. CBC showed leukocytosis of 13.8. CMP showed bicarb of 21 and glucose 149. Amylase and lipase negative. Urine negative. CT AP showed wall thickening of the sigmoid colon with nonobstructive left renal calculus and fibroid changes of the uterus. EKG showed sinus bradycardia with ventricular rate of 43. Patient is admitted for intractable abdominal pain, nausea and vomiting. She follows Dr. Martinez and Dr. Juan for her breast cancer. She has a PET scan c oming up on 10/24. Patient was seen and examined this morning. No acute events overnight. No bowel movement today. Nursing reports one episode of vomiting. Currently reports abdominal pain, 7 out of 10 in severity well-controlled with Dilaudid. General: non toxic, no distress, appears at stated age Derm: warm, dry Head: atraumatic, normocephalic, symmetric Eyes: EOMI, no lid lag, anicteric sclera Mouth: no lip lesion, mucus membranes moist Cardiovascular: Bradycardic, no murmur Lungs: CTA bilateral, no rhonchi, no rales , no accessory muscle use Abdominal: soft, tenderness to palpation of the bilateral lower quadrant without rebound, no guarding, no appreciable organomegaly Ext: no gross muscle atrophy, no edema, no contractures Neuro: no focal neuro deficits Psych: Alert, oriented, appropriate affect Colitis Hypokalemia Resolved: Luekocytosis, Hyperglycemia Chronic conditions: Right-sided breast cancer, anxiety, bradycardia Based on my assessment of this patient, this patient meets a moderate complexity level of care. I have reviewed the following advanced manufacturing consultant notes: Infectious disease note 10/18, continue Zosyn while waiting for cultures to finalize. I have reviewed the results of the following tests: CBC is relatively benign. BMP shows potassium of 3.3 and calcium of 8.4. I have ordered the following tests: Stool culture pending. I have discussed the care of this patient with the following independent historian: None. I have independently interpreted the following test below: None. I have discussed the management of this patient with the following physician: None. This patient has a moderate risk of morbidity due to the following reasons: Patient has an acute diagnosis of abdominal pain related to colitis that poses a threat to life or bodily function. She reports her pain to be 7 out of 10 in severity. She will be continued on Dilaudid 1 mg IV every 3 hours as needed for severe pain. Nursing has been instructed to use [place] rather than Dilaudid. Zofran 4 mg IV every 6 hours as needed for nausea and vomiting. Continue Zosyn 3.375 g IV twice a day. Continue normal saline at 75 mL per hour. Stool culture pending. Clear liquid diet and advance. Surgery has been consulted for further management of this patient. Infectious disease on board Patient names her decision maker if she can't make decisions for herself. Patient will like to be full code. Lovenox for DVT prophylaxis. Patient is pending clinical improvement. Anticipated discharge in 1-2 days depending on clinical course. Objective - Vital Signs Vital signs: Vital Signs Temp 98.3 F 10/19/22 07:00 Pulse 50 L 10/19/22 07:00 Resp 16 10/19/22 07:00 BP 110/66 10/19/22 07:00 Pulse Ox 97 10/19/22 07:00 FiO2 Intake & Output 10/18/22 10/19/22 10/19/22 18:59 06:59 18:59 Other: # Voids 2 1 - Labs CBC & Chem 7: 10/18/22 07:04 10/18/22 07:04 Labs: Abnormal Lab Results - Last 24 Hours (Table) 10/18/22 10/18/22 Range/Units 07:04 07:04 RBC 3.91 L (4.10-5.20) X 10*6/uL Hct 36.0 L (37.2-46.3) % Potassium 3.3 L (3.5-5.5) mmol/L Anion Gap 8.90 L (10.00-18.00) mmol/L BUN 7.8 L (9.0-27.0) mg/dL BUN/Creatinine Ratio 11.14 L (12.00-20.00) Ratio Calcium 8.4 L (8.7-10.3) mg/dL
--- NOTE | 2022-10-19 17:10 | P.PN ---
Subjective Progress Note Date: 10/19/22 Principal diagnosis: Colitis Patient is a 42-year-old female with a past medical history for breast cancer status postlumpectomy and peptic ulcer disease presenting to the ER for evaluation of lower abdominal pain, along with vomiting and diarrhea CT suggestive of colitis involving the sigmoid area On today's evaluation that is 10/19/2022, the patient denies having any fever or chills, still complaining of lower abdominal pain and nausea but no vomiting and did not have any bowel movements is being admitted to the hospital with chest pain shortness of breath or cough Objective - Vital Signs Vital signs: Vital Signs Temp 98.3 F 10/19/22 07:00 Pulse 50 L 10/19/22 07:00 Resp 16 10/19/22 07:00 BP 110/66 10/19/22 07:00 Pulse Ox 97 10/19/22 07:00 FiO2 Intake & Output 10/18/22 10/19/22 10/19/22 18:59 06:59 18:59 Other: # Voids 2 1 3 # Bowel Movements 1 - Exam GENERAL DESCRIPTION: Middle-aged female lying in bed in no distress RESPIRATORY SYSTEM: Unlabored breathing , decreased breath sounds at bases HEART: S1 S2 regular rate and rhythm , ABDOMEN: Soft , mild tenderness EXTREMITIES: No edema feet - Labs CBC & Chem 7: 10/18/22 07:04 10/18/22 07:04 Assessment and Plan (1) Colitis Current Visit: Yes Status: Acute Code(s): K52.9 - NONINFECTIVE GASTROE NTERITIS AND COLITIS, UNSPECIFIED SNOMED Code(s): 52618869 Plan: 1patient presented to hospital with lower abdominal pain patient did have te rrhea and vomiting did have elevated white count with evidence of colitis on the CT with concern for possible diverticulitis versus infectious colitis and question of possible food poisoning, will need to cover for the enteric gram- negative both aerobes and anaerobes 2-patient seemed to have some clinical improvement and will continue the Zosyn while waiting for the culture to finalize Time with Patient: Less than 30
--- NOTE | 2022-10-19 21:46 | P.PN ---
Subjective Progress Note Date: 10/19/22 CHIEF COMPLAINT: Lower abdominal pain HISTORY OF PRESENT ILLNESS: The patient is a 42 year old female who comes in diarrhea and moderate to severe lower abdominal pain. She was still reports lower abdominal pain however moderately improved. She is tolerating clear liquid diet. REVIEW OF ORGAN SYSTEMS: CONSTITUTIONAL: No fevers or chills. No recent weight loss. GASTROINTESTINAL: Has change in bowel habits, new. No prior colonoscopy. History of stomach ulcers PSYCHIATRIC: Denies current depression or suicidal thoughts. Generalized anxiety disorder. ENDOCRINE: Denies current thyroid disorders. Denies any blood sugar glucose intolerance. BREAST: Recent breast cancer. PHYSICAL EXAM: VITALS: Reviewed CONSTITUTIONAL: Well developed and in no acute distress. EYES: Conjuctivae without sclera icterus. Extraocular movements grossly intact. HEAD, EARS, NOSE, THROAT: Moist buccal mucosa. Head is atraumatic, normocephalic. Hears conversational speech. No nasal drainage. RESPIRATORY: Non-labored respirations and equal bilateral excursions. No gross wheezes. CARDIOVASCULAR: Palpable 2+ radial pulses. ABDOMEN: Tender lower abdomen. No peritonitis. MUSCULOSKELETAL: No clubbing cyanosis or edema SKIN: Warm and well perfused with good skin turgor. NEUROLOGIC: Cranial nerves II through XII grossly intact. No focal or lateralizing signs. PSYCH: Appropriate affect. Alert and oriented to person, place and time. Displays appropriate insight. CLINCAL LABS: Reviewed. WBC down 13.8-8.8. ASSESSMENT: 1. Lower abdominal pain due to colitis 2. Leukocytosis 3. Anorexia 4. Diarrhea PLAN: 1. She still reports abdominal pain and only tottering clear liquid diet, continue antibiotics 2. Stool cultures are pending 3. Low fiber diet prior to discharge Objective - Vital Signs Vital signs: Vital Signs Temp 97.8 F 10/19/22 19:06 Pulse 51 L 10/19/22 19:06 Resp 18 10/19/22 19:06 BP 114/68 10/19/22 19:06 Pulse Ox 100 10/19/22 19:06 FiO2 Intake & Output 10/19/22 10/19/22 10/20/22 06:59 18:59 06:59 Other: # Voids 1 3 # Bowel Movements 1 - Labs CBC & Chem 7: 10/18/22 07:04 10/18/22 07:04 Labs: Microbiology - Last 24 Hours (Table) 10/17/22 16:25 Stool Culture - Preliminary Stool
[2022-10-19] MEDS: metroNIDAZOLE-NS PMX 500 MG in SALINE 1 100ML.BAG IVPB SCH (23:22)
[2022-10-20] MEDS: PIPERACILLIN-TAZOBACTAM 3.375 GM in SODIUM CHLORIDE 0.9% 100 ML IVPB SCH ×3 (00:20→17:07)
[2022-10-20] MEDS: HYDROmorphone 1 MG/ML 1 ML SYRINGE IVP PRN ×2 (05:28→08:16)
[2022-10-20] MEDS: metroNIDAZOLE-NS PMX 500 MG in SALINE 1 100ML.BAG IVPB SCH ×3 (08:18→22:39)
[2022-10-20] MEDS: ENOXAPARIN 40 MG/0.4 ML SYRINGE SQ SCH (08:30)
[2022-10-20] MEDS: ALPRAZolam 0.5 MG TAB PO PRN (08:30)
[2022-10-20] MEDS: SODIUM CHLORIDE 0.9% 1,000 ML IV SCH ×2 (11:04→22:40)
[2022-10-20] MEDS: oxyCODONE-APAP 10-325MG 1 EACH TAB PO PRN ×2 (12:05→16:11)
--- NOTE | 2022-10-20 12:24 | P.PN ---
Subjective Progress Note Date: 10/20/22 CHIEF COMPLAINT: Lower abdominal pain HISTORY OF PRESENT ILLNESS: Patient presented with diarrhea and lower abdominal pain. Patient's diet was advanced to low fiber. Patient reported increased and sharp pains in the lower abdomen suprapubic a few hours after eating. She reports no appetite this morning and does not want to try the regular food. She reports she had been tolerating a full liquids okay. The diarrhea has resolved. She is [place] have any vomiting. The bowel movements yesterday were mostly formed. White count has normalized from 13-8. Stool cultures are preliminary report were negative. She is afebrile. Patient denies any urinary symptoms. Urinalysis negative for infection PHYSICAL EXAM: VITAL SIGNS: Reviewed GENERAL: Well-developed in no acute distress. HEENT: No sclera icterus. Extraocular movements grossly intact. Moist buccal mucosa. Head is atraumatic, normocephalic. Hears conversational speech. No nasal drainage. NECK: Supple without lymphadenopathy. CHEST: Non-labored respirations and equal bilateral excursions. CARDIOVASCULAR: Palpable 2+ radial pulses. ABDOMEN: Soft. Nondistended. Tenderness to palpation in the suprapubic area MUSCULOSKELETAL: No clubbing or cyanosis. NEUROLOGIC: No focal or lateralizing signs. Cranial nerves II through XII grossly intact. PSYCH: Appropriate affect. Alert and oriented to person, place and time. SKIN: Well perfused. Good skin turgor. ASSESSMENT: 1. Colitis with lower abdominal pain 2. Leukocytosis improved 3. Diarrhea improved PLAN: -Downgrade diet to full liquids due to increased abdominal pain -Continue antibiotics -continue supportive care -Further recommendations forthcoming per surgeon Physician [employer] note has been reviewed by physician. Signing provider agrees with the documented findings, assessment, and plan of care. CHIEF COMPLAINT: Lower abdominal pain HISTORY OF PRESENT ILLNESS: The patient is a 42 year old female who comes in diarrhea and moderate to severe lower abdominal pain. She has trouble tolerating diet. She reports primarily suprapubic pain. She has paresis and history of uterine fibroids. No blood in stools. She reports dark urine possible urinary retention. REVIEW OF ORGAN SYSTEMS: CONSTITUTIONAL: No fevers or chills. No recent weight loss. GASTROINTESTINAL: Has change in bowel habits, new. No prior colonoscopy. History of stomach ulcers PSYCHIATRIC: Denies current depression or suicidal thoughts. Generalized anxiety disorder. ENDOCRINE: Denies current thyroid disorders. Denies any blood sugar glucose intolerance. BREAST: Recent breast cancer. PHYSICAL EXAM: VITALS: Reviewed CONSTITUTIONAL: Well developed and in no acute distress. EYES: Conjuctivae without sclera icterus. Extraocular movements grossly intact. HEAD, EARS, NOSE, THROAT: Moist buccal mucosa. Head is atraumatic, normocephalic. Hears conversational speech. No nasal drainage. RESPIRATORY: Non-labored respirations and equal bilateral excursions. No gross wheezes. CARDIOVASCULAR: Palpable 2+ radial pulses. ABDOMEN: No peritonitis. No bilateral lower abdominal pain to deep palpation. MUSCULOSKELETAL: No clubbing cyanosis or edema SKIN: Warm and well perfused with good skin turgor. NEUROLOGIC: Cranial nerves II through XII grossly intact. No focal or lateralizing signs. PSYCH: Appropriate affect. Alert and oriented to person, place and time. Displays appropriate insight. CLINCAL LABS: Reviewed. ASSESSMENT: 1. Lower abdominal pain with colitis 2. Leukocytosis 3. Anorexia 4. Diarrhea 5. Diverticulosis 6. Uterine fibroids 7. Urinary retention PLAN: 1. Patient is still clinically have persistent abdominal pain. Recommend ultrasound of bladder pain and uterus due to urinary retention and uterine fibroids for abdominal pain 2. Disposition pending additional studies 3. Antibiotic adjusted to metronidazole and Zosyn for management of abdominal pain Objective - Vital Signs Vital signs: Vital Signs Temp 98.2 F 10/20/22 07:00 Pulse 58 L 10/20/22 08:00 Resp 16 10/20/22 08:00 BP 114/66 10/20/22 07:00 Pulse Ox 98 10/20/22 07:00 FiO2 Intake & Output 10/19/22 10/20/22 10/20/22 18:59 06:59 18:59 Other: Voiding Method Toilet Toilet # Voids 3 2 # Bowel Movements 1 - Labs CBC & Chem 7: 10/18/22 07:04 10/18/22 07:04 Labs: Microbiology - Last 24 Hours (Table) 10/17/22 16:25 Stool Culture - Preliminary Stool
--- NOTE | 2022-10-20 12:49 | P.PN ---
Subjective Progress Note Date: 10/20/22 Patient is a 42-year-old female with PMH of right-sided breast cancer, anxiety, bradycardia presents the ED for abdominal pain that started a day. Patient reports waking up with bilateral lower quadrant abdominal pain that was sharp and stabbing in nature. Pain was constant. Pain was 10 out of 10. Pain was associated with fever and chills along with bilious nausea and vomiting. She reported multiple episodes of watery diarrhea with blood which prompted her to come to the ED. She denies any dysuria. She denies any headache, lower extremity edema, cough, chest pain, shortness breath, palpitations. She denies any changes in appetite or weight. She denies any dizziness, numbness/weakness/tingling of the extremities. In the ED, she was noted to be bradycardic with heart rate of 44 and vital signs were otherwise stable. CBC showed leukocytosis of 13.8. CMP showed bicarb of 21 and glucose 149. Amylase and lipase negative. Urine negative. CT AP showed wall thickening of the sigmoid colon with nonobstructive left renal calculus and fibroid changes of the uterus. EKG showed sinus bradycardia with ventricular rate of 43. Patient is admitted for intractable abdominal pain, nausea and vomiting. She follows Dr. Martinez and Dr. Juan for her breast cancer. She has a PET scan c oming up on 10/24. Patient was seen and examined this morning. No acute events overnight. Small bowel movement today. She attempted to eat FLD dinner last night but had to stop due to severe abdominal pain. Currently reports abdominal pain, 8 out of 10 in severity. She has been using Dilaudid around the clock. General: non toxic, no distress, appears at stated age Derm: warm, dry Head: atraumatic, normocephalic, symmetric Eyes: EOMI, no lid lag, anicteric sclera Mouth: no lip lesion, mucus membranes moist Cardiovascular: Bradycardic, no murmur Lungs: CTA bilateral, no rhonchi, no rales , no accessory muscle use Abdominal: soft, tenderness to palpation of the bilateral lower quadrant without rebound, no guarding, no appreciable organomegaly Ext: no gross muscle atrophy, no edema, no contractures Neuro: no focal neuro deficits Psych: Alert, oriented, appropriate affect Colitis Hypokalemia Hypocalcemia Resolved: Luekocytosis, Hyperglycemia Chronic conditions: Right-sided breast cancer, anxiety, bradycardia Based on my assessment of this patient, this patient meets a moderate complexity level of care. I have reviewed the following industry consultant notes: Surgery note 10/20, downgrade diet to CLD due to severe abdominal pain. I have reviewed the results of the following tests: None. Stool culture shows no Salmonella or E. coli. I have ordered the following tests: Stool culture final pending. I have discussed the care of this patient with the following independent historian: None. I have independently interpreted the following test below: None. I have discussed the management of this patient with the following physician: The case was discussed with Karen FORD, continue CLD and supportive management, will discuss with Dr. Crockett. This patient has a moderate risk of morbidity due to the following reasons: Patient has an acute diagnosis of abdominal pain related to colitis that poses a threat to life or bodily function. She reports her pain to be 8 out of 10 in severity. Unable to tolerate to tolerate FLD. Dilaudid will be discontinued and she will be started on Percocet 10 mg PO Q4H PRN for pain. Zofran 4 mg IV every 6 hours as needed for nausea and vomiting. Continue Zosyn 3.375 g IV twice a day. Flagyl 500 mg IV Q8H added. Continue normal saline at 75 mL per hour. Final stool culture pending. Clear liquid diet and advance. Surgery on board. Infectious disease on board Patient names her decision maker if she can't make decisions for herself. Patient will like to be full code. Lovenox for DVT prophylaxis. Patient is pending clinical improvement. Anticipated discharge in 1-2 days depending on clinical course. Objective - Vital Signs Vital signs: Vital Signs Temp 98.2 F 10/20/22 07:00 Pulse 58 L 10/20/22 08:00 Resp 16 10/20/22 08:00 BP 114/66 10/20/22 07:00 Pulse Ox 98 10/20/22 07:00 FiO2 Intake & Output 10/19/22 10/20/22 10/20/22 18:59 06:59 18:59 Other: Voiding Method Toilet Toilet # Voids 3 2 # Bowel Movements 1 - Labs CBC & Chem 7: 10/18/22 07:04 10/18/22 07:04 Labs: Microbiology - Last 24 Hours (Table) 10/17/22 16:25 Stool Culture - Preliminary Stool
[2022-10-20] MEDS: METOCLOPRAMIDE 5 MG/ML 2 ML VIAL IVP PRN (13:17)
[2022-10-20] MEDS ORDERED: HYDROmorphone 1 MG/ML 1 ML SYRINGE IVP STA (19:06)
[2022-10-20 19:52] LABS: Appearance,Urine Clear (Clear); Bilirubin,Urine Negative (Negative); Blood,Urine Negative (Negative); Color,Urine Light Yellow; Glucose,Urine (UA) Negative (Negative); Leukocyte Esterase,Urine Negative (Negative); Nitrite,Urine Negative (Negative); Protein,Urine Negative (Negative); Specific Gravity,Urine 1.007 (1.001-1.035); Urobilinogen,Urine <2.0 mg/dL (<2.0)
[2022-10-20 19:58] LABS: Ketones,Urine 2+ (Negative)
--- NOTE | 2022-10-20 20:06 | US ---
EXAMINATION TYPE: US pelvic complete DATE OF EXAM: 10/20/2022 COMPARISON: CT: 10/17/22 CLINICAL INDICATION: Female, 42 years old with history of suprapubic pain; pelvic pain. Hx of fibroid s TECHNIQUE: . Transabdominal sonographic images of the pelvis were acquired. Date of LMP: 10/03/22 EXAM MEASUREMENTS: Uterus: 8.4 x 7.7 x 6.4 cm Endometrial Stripe: 0.9 cm Right Ovary: 3.8 x 2.2 x 3.1 cm Left Ovary: 4.0 x 3.8 x 2.9 cm 1. Uterus: Retroverted Multiple fibroids visualized. Largest = 4.2 x 4.3 x 4.0cm in the posterior fu ndus of the uterus 2. Endometrium: wnl 3. Right Ovary: Dominant follicle visualized measuring 1.9 x 1.7 x 1.4 cm. 4. Left Ovary: wnl Spectral, color and waveform doppler imaging shows good arterial and venous flow within the ovaries ; there is no evidence for ovarian torsion. 5. Bilateral Adnexa: wnl 6. Posterior cul-de-sac: wnl Urinary bladder is sonolucent. The posterior wall is normal. IMPRESSION: 1. A 1.7 cm right ovarian cyst. 2. Uterine fibroid posterior fundus
[2022-10-21] MEDS: oxyCODONE-APAP 10-325MG 1 EACH TAB PO PRN ×5 (00:17→20:50)
[2022-10-21] MEDS: PIPERACILLIN-TAZOBACTAM 3.375 GM in SODIUM CHLORIDE 0.9% 100 ML IVPB SCH ×2 (00:17→06:27)
[2022-10-21] MEDS: ENOXAPARIN 40 MG/0.4 ML SYRINGE SQ SCH (08:10)
[2022-10-21] MEDS: METOCLOPRAMIDE 5 MG/ML 2 ML VIAL IVP PRN ×2 (08:11→15:39)
[2022-10-21] MEDS: metroNIDAZOLE-NS PMX 500 MG in SALINE 1 100ML.BAG IVPB SCH ×3 (09:41→23:42)
--- NOTE | 2022-10-21 14:38 | P.PN ---
Subjective Progress Note Date: 10/21/22 Hospital Course: Patient is a 42-year-old female with PMH of right-sided breast cancer, anxiety, bradycardia presents the ED for abdominal pain. Patient reports waking up with bilateral lower quadrant abdominal pain that was sharp and stabbing in nature. Pain was constant. Pain was 10 out of 10. Pain was associated with fever and chills along with bilious nausea and vomiting. She reported multiple episodes of watery diarrhea with blood which prompted her to come to the ED. She denies any dysuria. She denies any headache, lower extremity edema, cough, chest pain, shortness breath, palpitations. She denies any changes in appetite or weight. She denies any dizziness, numbness/weakness/tingling of the extremities. In the ED, she was noted to be bradycardic with heart rate of 44 and vital signs were otherwise stable. CBC showed leukocytosis of 13.8. CMP showed bicarb of 21 and glucose 149. Amylase and lipase negative. Urine negative. CT AP showed wall thickening of the sigmoid colon with nonobstructive left renal calculus and fibroid changes of the uterus. EKG showed sinus bradycardia with ventricular rate of 43. Patient is admitted for intractable abdominal pain, nausea and vomiting. She follows Dr. Martinez and Dr. Juan for her breast cancer. She has a PET scan coming up on 10/24. Subjective: Patient seen and examined at bedside. No acute events overnight. Still has significant lower abdominal tenderness. She is still having nausea and vo miting. She is able to only take small amounts of water. She is unable to eat solids. She had 4 bowel movements yesterday. She denies any urinary complaints at the moment. Pertinent positives and negatives as discussed above, a complete review of systems was performed and all other systems are negative. Vitals Signs Reviewed. General: nontoxic, no distress, appears at stated age Derm: warm, dry Head: atraumatic, normocephalic, symmetric Eyes: EOMI, no lid lag, anicteric sclera Mouth: no lip lesion, mucus membranes moist Cardiovascular: S1S2 reg, no murmur Lungs: CTA bilateral, no rhonchi, no rales , no accessory muscle use Abdominal: soft, nontender to palpation, no guarding, no appreciable organomegaly Ext: no gross muscle atrophy, no edema, no contractures Neuro: CN II-XI grossly intact, no focal neuro deficits Psych: Alert, oriented, appropriate affect Data Reviewed Today: Microbiology, stool culture did not show salmonella, Shigella, Campylobacter, E. coli 0157/H7, E. coli Shiga toxin Pelvic ultrasound report reviewed shows 1.7 cm right ovarian cyst, uterine fibroid and posterior fundus Assessment and Plan: Colitis, possibly infectious Diarrhea History of diverticulosis Uterine fibroids Hypokalemia Hypocalcemia -ID and general surgery following -Currently on IV Zosyn and Flagyl, will continue Flagyl, DC Zosyn and changed to IV ceftriaxone -C. diff toxin pending -GI consulted, pending recommendations -Continue clear liquid diet, advance as tolerated -Abdominal pain possibly secondary to uterine fibroids, will likely need outpatient follow-up -Repeat CMP tomorrow DVT ppx: Lovenox Code status: Full code Anticipated discharge place: Pending clinical course Anticipated discharge time: Pending clinical course Objective - Vital Signs Vital signs: Vital Signs Temp 98 F 10/21/22 13:43 Pulse 62 10/21/22 13:43 Resp 16 10/21/22 13:43 BP 115/72 10/21/22 13:43 Pulse Ox 96 10/21/22 13:43 FiO2 Intake & Output 10/20/22 10/21/22 10/21/22 18:59 06:59 18:59 Intake Total 300 230 Balance 300 230 Intake: Intake, IV Titration 300 Amount Piperacillin-Tazobactam 3 100 .375 gm In Sodium Chloride 0.9% 100 ml @ 25 mls/hr IVPB Q8H [facility] Rx#: [id number] metroNIDAZOLE-NS PMX 500 200 mg In Saline 1 100ml.bag @ 100 mls/hr IVPB Q8HR [facility] Rx#:[id number] Oral 230 Other: Voiding Method Toilet Toilet Toilet # Voids 2 2 # Bowel Movements 2 - Labs CBC & Chem 7: 10/18/22 07:04 10/18/22 07:04 Labs: Abnormal Lab Results - Last 24 Hours (Table) 10/20/22 Range/Units 16:25 Urine Ketones 2+ H (Negative) Microbiology - Last 24 Hours (Table) 10/17/22 16:25 Stool Culture - Final Stool
--- NOTE | 2022-10-21 15:23 | P.CONS ---
History of Present Illness - Reason for Consult Consult date: 10/21/22 Colitis Requesting physician: Lesley Crockett - Chief Complaint Abdominal pain, diarrhea - History of Present Illness This a pleasant 42-year-old female who presented to the emergency department she denied any bloody diarrhea she states no significant past medical history other than recent diagnosis of breast cancer status post lumpectomy on 09/22/2022. She denies any chemo or radiation. Denies any recent antibiotics. Yesterday she was starting feeling better they gave her some food and she started having diarrhea again. She states it is nonbloody. She denies any previous history of colitis or Crohn's disease, no family history of IBD. She had a CT of the abdomen and pelvis that showed circumferential wall thickening under distended sigmoid colon which relate to nonspecific colitis from infectious inflammatory etiology versus under distention. Nonobstructive left renal calculus. Fibroid changes to the uterus. She also underwent ultrasound of the pelvis that showed 1.7 cm right ovarian cyst, uterine fibroid posterior fundus. Has known history of uterine fibroid is supposed to have a hysterectomy. Patient is not had a previous EGD or colonoscopy. She has been afebrile this hospitalization, still having abdominal cramping. Patient had mild leukocytosis on admission which has trended down, since being on IV Flagyl and Rocephin.. Review of Systems REVIEW OF SYSTEMS: CARDIOPULMONARY: No chest pain or shortness of breath. Gastrointestinal: Abdominal pain and cramping associated with nonbloody diarrhea. Nausea and vomiting, chills prior to admission. No hematemesis, coffee-ground emesis. No rectal bleeding, or melena. GENITOURINARY: No dysuria or hematuria. MUSCULOSKELETAL: Reports normal range of motion., Joint pain. SKIN: No rashes. No jaundice. ENDOCRINE: No chills, fevers. No excessive weight gain or loss. No polydipsia or polyuria. PSYCHIATRIC: Unremarkable. NEUROLOGY: No change in mental status. Denies dizziness, headache. ENT: Vision unremarkable. CONSTITUTIONAL: No recent weight loss. No fever, chills, night sweats. Past Medical History Past Medical History: Cancer Additional Past Medical History / Comment(s): hx stomach ulcers, susana breast cancer and lumpectomy right lymphnodes, snores, kidney stone., states episode of low heart rate and had heart monitor check by [facility] pain from uterine fibroids. History of Any Multi-Drug Resistant Organisms: None Reported Past Surgical History: Breast Surgery, Orthopedic Surgery Additional Past Surgical History / Comment(s): ankle surgery, laparoscopy, 07/22/22 left breast lumpectomy & right breast bx. Past Anesthesia/Blood Transfusion Reactions: No Reported Reaction Past Psychological History: Anxiety Smoking Status: Former smoker Past Alcohol Use History: None Reported Additional Past Alcohol Use History / Comment(s): quit smoking April 2022 Past Drug Use History: None Reported - Past Family History Mother Family Medical History: Cancer, Coronary Artery Disease (CAD) Additional Family Medical History / Comment(s): breast and brain cancer Father Family Medical History: Deep Vein Thrombosis (DVT) Medications and Allergies Home Medications Medication Instructions Recorded Confirmed Type Acetaminophen-Codeine 300-30mg 1 tab PO Q6H PRN 04/11/22 10/17/22 History [Tylenol w/codeine #3] ALPRAZolam [Xanax] 0.5 mg PO TID PRN 06/23/22 10/17/22 History Vitamin B Complex 1 cap PO DAILY 10/17/22 10/17/22 History Allergies Allergy/AdvReac Type Severity Reaction Status Date / Time ibuprofen [From Motrin] AdvReac ULCERS Verified 10/17/22 13:56 Physical Exam Vitals: Vital Signs Temp Pulse Resp BP Pulse Ox 10/21/22 07:00 98.6 F 56 L 16 107/64 96 10/21/22 01:52 98.2 F 58 L 18 97/57 94 L 10/20/22 20:00 58 L 18 10/20/22 19:41 98.2 F 58 L 18 107/65 98 10/20/22 15:00 98.7 F 55 L 20 95/55 99 10/20/22 14:00 55 L 20 Intake and Output 10/20/22 10/21/22 10/21/22 22:59 06:59 14:59 Intake Total 100 200 Balance 100 200 Intake: Intake, IV Titration 100 200 Amount Piperacillin-Tazobactam 3 100 .375 gm In Sodium Chloride 0.9% 100 ml @ 25 mls/hr IVPB Q8H [facility]CLUDES [facility] Rx#: [id number] metroNIDAZOLE-NS PMX 500 100 100 mg In Saline 1 100ml.bag @ 100 mls/hr IVPB Q8HR COUNT INCLUDES THE [facility] Rx#:[id number] Other: Voiding Method Toilet Toilet General appearance: The patient is alert, oriented, appears in no acute di stress. HET: Head is normocephalic and atraumatic. Conjunctiva pink. Sclera anicteric. Neck: Supple without lymphadenopathy. Trachea midline. Heart: S1 S2. Regular rate and rhythm. Lungs: Clear to auscultation. Abdomen: Soft, mild lower abdominal tenderness, nondistended with bowel sounds. No guarding or rigidity. Skin: No rashes. No jaundice. Extremities: Normal skin color and turgor. No pedal edema. Neurological: No focal deficits. Alert and oriented x3. Results CBC & Chem 7: 10/18/22 07:04 10/18/22 07:04 Labs: Abnormal Lab Results - Last 24 Hours (Table) 10/20/22 Range/Units 16:25 Urine Ketones 2+ H (Negative) Microbiology - Last 24 Hours (Table) 10/17/22 16:25 Stool Culture - Final Stool Assessment and Plan (1) Colitis Narrative/Plan: 42-year-old female brought in with abdominal pain diarrhea nausea and vomiting had CT abdomen showing wall thickening in the sigmoid colon suggesting possible colitis. Unclear etiology however likely infectious colitis in the setting of leukocytosis, fevers and chills, nausea and vomiting. Symptoms started improving however after eating she started having more diarrhea. Nonbloody. stool cultures were sent and negative. C. diff has been ordered. Continue symptomatic and supportive care. Current Visit: Yes Status: Acute Code(s): K52.9 - NONINFECTIVE GASTROENTERITIS AND COLITIS, UNSPECIFIED SNOMED Code(s): 13380059 (2) Abdominal pain Current Visit: Yes Status: Acute Code(s): R10.9 - UNSPECIFIED ABDOMINAL PAIN SNOMED Code(s): 17554125 Plan: 1. Continue symptomatic and supportive care 2. Clear liquid diet, advance as tolerated 3. Protonix 40 mg daily for GI prophylaxis next 4. May continue Flagyl and Rocephin for 5 days 5. Antiemetics as needed 6. C. diff ordered 7. No plans at this time for colonoscopy. Recommend outpatient follow-up and possible colonoscopy in 4-6 weeks. This consultation, we will continue to follow. Dr. Wyatt Damico I agree with the dictator's note, documented as a scribe by Danita Leung.
[2022-10-21] MEDS: SODIUM CHLORIDE 0.9% 1,000 ML IV SCH ×2 (16:15→20:51)
--- NOTE | 2022-10-21 16:34 | P.PN ---
Subjective Progress Note Date: 10/21/22 CHIEF COMPLAINT: Lower abdominal pain HISTORY OF PRESENT ILLNESS: Patient presented with diarrhea and lower abdominal pain. Patient reports that she continues not to feel well. Her diarrhea has started back up. She reports 5 episodes of diarrhea with nausea. She reports no blood in the stool. She continues to have lower abdominal pain. Her repeat urinalysis is negative. Bladder scan had only shown no evidence of urinary retention. Pelvic ultrasound had shown a 1.7 cm right ovarian cyst and uterine fibroid posterior fundus. Afebrile. PHYSICAL EXAM: VITAL SIGNS: Reviewed GENERAL: Well-developed in no acute distress. HEENT: No sclera icterus. Extraocular movements grossly intact. Moist buccal mucosa. Head is atraumatic, normocephalic. Hears conversational speech. No nasal drainage. NECK: Supple without lymphadenopathy. CHEST: Non-labored respirations and equal bilateral excursions. CARDIOVASCULAR: Palpable 2+ radial pulses. ABDOMEN: Soft. Nondistended. Tenderness to palpation in the suprapubic area MUSCULOSKELETAL: No clubbing or cyanosis. NEUROLOGIC: No focal or lateralizing signs. Cranial nerves II through XII grossly intact. PSYCH: Appropriate affect. Alert and oriented to person, place and time. SKIN: Well perfused. Good skin turgor. ASSESSMENT: 1. Colitis with lower abdominal pain 2. Leukocytosis improved 3. Diarrhea worsening PLAN: -Due to worsening diarrhea and abdominal pain. Recommend to have patient evaluated by GI service -Continue clear liquids and advance as tolerated -Continue antibiotics -continue supportive care Physician Air Deodorizer Servicer note has been reviewed by physician. Signing provider agrees with the documented findings, assessment, and plan of care. Please see additional documentation below Patient reports lower abdominal pain despite adjustment of antibiotics. Additional studies including ultrasound demonstrates multiple fibroids. She did not negative. Due to patient's reported persistent diarrhea and abdominal pain, recommend GI consultation. No acute surgical intervention at this time. Objective - Vital Signs Vital signs: Vital Signs Temp 98.6 F 10/21/22 07:00 Pulse 56 L 10/21/22 07:00 Resp 16 10/21/22 07:00 BP 107/64 10/21/22 07:00 Pulse Ox 96 10/21/22 07:00 FiO2 Intake & Output 10/20/22 10/21/22 10/21/22 18:59 06:59 18:59 Intake Total 300 Balance 300 Intake: Intake, IV Titration 300 Amount Piperacillin-Tazobactam 3 100 .375 gm In Sodium Chloride 0.9% 100 ml @ 25 mls/hr IVPB Q8H [facility] Rx#: [id number] metroNIDAZOLE-NS PMX 500 200 mg In Saline 1 100ml.bag @ 100 mls/hr IVPB Q8HR [facility] Rx#:[id number] Other: Voiding Method Toilet Toilet Toilet # Voids 2 - Labs CBC & Chem 7: 10/18/22 07:04 10/18/22 07:04 Labs: Abnormal Lab Results - Last 24 Hours (Table) 10/20/22 Range/Units 16:25 Urine Ketones 2+ H (Negative) Microbiology - Last 24 Hours (Table) 10/17/22 16:25 Stool Culture - Final Stool
--- NOTE | 2022-10-21 19:15 | P.PN ---
Subjective Progress Note Date: 10/20/22 Principal diagnosis: Colitis Patient is a 42-year-old female with a past medical history for breast cancer status postlumpectomy and peptic ulcer disease presenting to the ER for evaluation of lower abdominal pain, along with vomiting and diarrhea CT suggestive of colitis involving the sigmoid area On today's evaluation that is 10/20/2022, the patient remains to be afebrile, the patient had been complaining of more lower abdominal pain after she did eat her dinner last night, patient did have nausea but no vomiting and did not have any bowel movements is being admitted to the hospital with chest pain shortness of breath or cough Objective - Vital Signs Vital signs: Vital Signs Temp 98.2 F 10/20/22 07:00 Pulse 58 L 10/20/22 08:00 Resp 16 10/20/22 08:00 BP 114/66 10/20/22 07:00 Pulse Ox 98 10/20/22 07:00 FiO2 Intake & Output 10/19/22 10/20/22 10/20/22 18:59 06:59 18:59 Other: Voiding Method Toilet Toilet # Voids 3 2 # Bowel Movements 1 - Exam GENERAL DESCRIPTION: Middle-aged female lying in bed in no distress RESPIRATORY SYSTEM: Unlabored breathing , decreased breath sounds at bases HEART: S1 S2 regular rate and rhythm , ABDOMEN: Soft , mild tenderness EXTREMITIES: No edema feet - Labs CBC & Chem 7: 10/18/22 07:04 10/18/22 07:04 Labs: Microbiology - Last 24 Hours (Table) 10/17/22 16:25 Stool Culture - Preliminary Stool Assessment and Plan (1) Colitis Current Visit: Yes Status: Acute Code(s): K52.9 - NONINFECTIVE GASTROENTERITIS AND COLITIS, UNSPECIFIED SNOMED Code(s): 50136565 Plan: 1patient presented to hospital with lower abdominal pain patient did have diarrhea and vomiting did have elevated white count with evidence of colitis on the CT with concern for possible diverticulitis versus infectious colitis and question of possible food poisoning, will need to cover for the enteric gram- negative both aerobes and anaerobes 2-patient did have slight worsening of her symptoms after the last night advise clear liquid diet at this point and bowel rest, patient to continue with Rocephin and Flagyl while waiting for the culture to finalize Time with Patient: Less than 30
--- NOTE | 2022-10-21 19:17 | P.PN ---
Subjective Progress Note Date: 10/21/22 Principal diagnosis: Colitis Patient is a 42-year-old female with a past medical history for breast cancer status postlumpectomy and peptic ulcer disease presenting to the ER for evaluation of lower abdominal pain, along with vomiting and diarrhea CT suggestive of colitis involving the sigmoid area On today's evaluation that is 10/21/2022, the patient continues to be afebrile, the patient had been complaining of mostly lower abdominal pain and also started having more loose stool since yesterday no blood or mucus in the stool and no nausea no vomiting no chest pain shortness of breath or cough Objective - Vital Signs Vital signs: Vital Signs Temp 98 F 10/21/22 13:43 Pulse 62 10/21/22 13:43 Resp 16 10/21/22 13:43 BP 115/72 10/21/22 13:43 Pulse Ox 96 10/21/22 13:43 FiO2 Intake & Output 10/20/22 10/21/22 10/21/22 18:59 06:59 18:59 Intake Total 300 230 Balance 300 230 Intake: Intake, IV Titration 300 Amount Piperacillin-Tazobactam 3 100 .375 gm In Sodium Chloride 0.9% 100 ml @ 25 mls/hr IVPB Q8H [facility] Rx#: [id number] metroNIDAZOLE-NS PMX 500 200 mg In Saline 1 100ml.bag @ 100 mls/hr IVPB Q8HR [facility] Rx#:[id number] Oral 230 Other: Voiding Method Toilet Toilet Toilet # Voids 2 2 # Bowel Movements 2 - Exam GENERAL DESCRIPTION: Middle-aged female lying in bed in no distress RESPIRATORY SYSTEM: Unlabored breathing , decreased breath sounds at bases HEART: S1 S2 regular rate and rhythm , ABDOMEN: Soft , mild tenderness EXTREMITIES: No edema feet - Labs CBC & Chem 7: 10/18/22 07:04 10/18/22 07:04 Labs: Abnormal Lab Results - Last 24 Hours (Table) 10/20/22 Range/Units 16:25 Urine Ketones 2+ H (Negative) Microbiology - Last 24 Hours (Table) 10/17/22 16:25 Stool Culture - Final Stool Assessment and Plan (1) Colitis Current Visit: Yes Status: Acute Code(s): K52.9 - NONINFECTIVE GASTROENTERITIS AND COLITIS, UNSPECIFIED SNOMED Code(s): 68230924 Plan: 1patient presented to hospital with lower abdominal pain patient did have diarrhea and vomiting did have elevated white count with evidence of colitis on the CT with concern for possible diverticulitis versus infectious colitis and question of possible food poisoning, will need to cover for the enteric gram- negative both aerobes and anaerobes 2-patient did have a persistent abdominal pain and diarrhea stool for C. diff has been requested patient did have resolution of her fever, stool cultures have been negative continue Rocephin and Flagyl and monitor clinical course closely Time with Patient: Less than 30
[2022-10-22 07:30] VITALS: BP 120/73; PULSE 57; RESP 18; TEMP 97.9
[2022-10-22] MEDS: metroNIDAZOLE-NS PMX 500 MG in SALINE 1 100ML.BAG IVPB SCH (08:03)
[2022-10-22] MEDS: oxyCODONE-APAP 10-325MG 1 EACH TAB PO PRN (08:03)
[2022-10-22] MEDS: ENOXAPARIN 40 MG/0.4 ML SYRINGE SQ SCH (09:55)
[2022-10-22 11:03] LABS: African American GFR (CKD) 103.9 (60.0-200.0); Anion Gap 9.7 mmol/L (10.00-18.00); BUN/Creat Ratio 8.13 Ratio (12.00-20.00); Blood Urea Nitrogen 6.5 mg/dL (9.0-27.0); Calcium 8.7 mg/dL (8.7-10.3); Carbon Dioxide 17.3 mmol/L (20.0-27.5); Non-African American GFR(CKD) 89.7 (60.0-200.0); Potassium 3.9 mmol/L (3.5-5.5)
--- NOTE | 2022-10-22 12:41 | P.DS ---
Providers Date of admission: 10/17/22 14:21 Expected date of discharge: 10/22/22 Attending physician: Eric Reyes MD Consults: 10/17/22 14:14 Consult Physician Routine Consulting Provider: Lesley Crockett Consult Reason/Comments: abdominal pain Do you want consulting provider notified?: Yes 10/17/22 15:49 Consult Physician Routine Consulting Provider: Brenda Olmstead Consult Reason/Comments: diarrhea, colitis Do you want consulting provider notified?: Yes 10/21/22 10:04 Consult Physician Routine Consulting Provider: Ninfa Damico Consult Reason/Comments: diarrhea, abdominal pain Do you want consulting provider notified?: Yes [facility] Course: Discharge Diagnosis: Infectious colitis Diarrhea History of diverticulosis Uterine fibroids Hypokalemia Hypocalcemia Hospital Course: Patient is a 42-year-old female with PMH of right-sided breast cancer, anxiety, bradycardia presents the ED for abdominal pain, diarrhea, nausea and vomiting. In the ED, she was noted to be bradycardic with heart rate of 44 and vital signs were otherwise stable. CBC showed leukocytosis of 13.8. CMP showed bicarb of 21 and glucose 149. Amylase and lipase negative. Urine negative. CT AP showed wall thickening of the sigmoid colon with nonobstructive left renal calculus and fibroid changes of the uterus. EKG showed sinus bradycardia with ventricular rate of 43. Patient is admitted for intractable abdominal pain, nausea and vomiting. Stool cultures negative for Salmonella, Shigella, Abductor, E. coli 0157/H7, E. coli Shiga toxin. C. diff negative. Patient was initially on IV Zosyn and Flagyl, was then switched to IV ceftriaxone and Flagyl. ID was consulted. Surgery was also following. Due to worsening abdominal pain, GI was consulted, did not recommend any acute interventions. Patient's symptoms mostly resolved with supportive care and IV antibiotics. She will be discharged on oral Flagyl and oral cefdinir. She will follow up with GI in 3-4 weeks for outpatient colonoscopy. Patient seen and examined at bedside. Vital signs reviewed and stable. General: nontoxic, no distress, appears at stated age Derm: warm, dry Head: atraumatic, normocephalic, symmetric Eyes: EOMI, no lid lag, anicteric sclera Mouth: no lip lesion, mucus membranes moist Cardiovascular: S1S2 reg, no murmur Lungs: CTA bilateral, no rhonchi, no rales , no accessory muscle use Abdominal: soft, nontender to palpation, no guarding, no appreciable organomegaly Ext: no gross muscle atrophy, no edema, no contractures Neuro: CN II-XI grossly intact, no focal neuro deficits Psych: Alert, oriented, appropriate affect A total of 38 minutes of time were spent preparing this complex discharge summary. Patient was discharged at 9:47. Patient Condition at Discharge: Stable Plan - Discharge Summary New Discharge Prescriptions: New metroNIDAZOLE [Flagyl] 500 mg PO TID #15 tab Cefdinir 300 mg PO Q12HR #10 cap Continue Acetaminophen-Codeine 300-30mg [Tylenol w/codeine #3] 1 tab PO Q6H PRN PRN Reason: Pain ALPRAZolam [Xanax] 0.5 mg PO TID PRN PRN Reason: Anxiety Vitamin B Complex 1 cap PO DAILY Discharge Medication List Acetaminophen-Codeine 300-30mg [Tylenol w/codeine #3] 1 tab PO Q6H PRN 04/11/22 [History] ALPRAZolam [Xanax] 0.5 mg PO TID PRN 06/23/22 [History] Vitamin B Complex 1 cap PO DAILY 10/17/22 [History] Cefdinir 300 mg PO Q12HR #10 cap 10/22/22 [Rx] metroNIDAZOLE [Flagyl] 500 mg PO TID #15 tab 10/22/22 [Rx] Follow up Appointment(s)/Referral(s): Ninfa Damico MD [STAFF PHYSICIAN] - 3 Weeks (Patient to call and make follow up appointment ) Belinda Sunshine MD [Primary Care Provider] - 1-2 days [facility] [NON-STAFF] - 1 Week [facility], [REFERRING] - 1 Week Patient Instructions/Handouts: Uterine Fibroids (GEN), Infectious Colitis (GEN) Activity/Diet/Wound Care/Special Instructions: Please see GI in 3-4 weeks. You may need colonoscopy at that point. Discharge/Stand Alone Forms: Outpatient Counseling Discharge Disposition: HOME SELF-CARE
--- NOTE | 2022-10-22 13:09 | P.PN ---
Subjective Progress Note Date: 10/22/22 Principal diagnosis: Colitis This a pleasant 42-year-old female who presented to the emergency department she denied any bloody diarrhea she states no significant past medical history other than recent diagnosis of breast cancer status post lumpectomy on 09/22/2022. She denies any chemo or radiation. Denies any recent antibiotics. Yesterday she was starting feeling better they gave her some food and she started having diarrhea again. She states it is nonbloody. She denies any previous history of colitis or Crohn's disease, no family history of IBD. She had a CT of the abdomen and pelvis that showed circumferential wall thickening under distended sigmoid colon which relate to nonspecific colitis from infectious inflammatory etiology versus under distention. Nonobstructive left renal calculus. Fibroid changes to the uterus. She also underwent ultrasound of the pelvis that showed 1.7 cm right ovarian cyst, uterine fibroid posterior fundus. Has known history of uterine fibroid is supposed to have a hysterectomy. Patient is not had a previous EGD or colonoscopy. She has been afebrile this hospitalization, still having abdominal cramping. Patient had mild leukocytosis on admission which has trended down, since being on IV Flagyl and Rocephin.. 10/22/2022: Patient was seen and examined is a follow-up for colitis. States still having some abdominal discomfort however diarrhea has improved. She is tolerating clear liquid diet, without any nausea or vomiting. She's afebrile. Denies any blood in her stool. C. diff was negative. Objective - Vital Signs Vital signs: Vital Signs Temp 97.9 F 10/22/22 07:06 Pulse 57 L 10/22/22 07:06 Resp 18 10/22/22 07:06 BP 120/73 10/22/22 07:06 Pulse Ox 97 10/22/22 07:06 FiO2 Intake & Output 10/21/22 10/22/22 10/22/22 18:59 06:59 18:59 Intake Total 230 350 Balance 230 350 Intake: Intake, IV Titration 100 Amount metroNIDAZOLE-NS PMX 500 100 mg In Saline 1 100ml.bag @ 100 mls/hr IVPB Q8HR [facility] Rx#:[id number] Oral 230 250 Other: Voiding Method Toilet Toilet # Voids 2 # Bowel Movements 2 - Exam General appearance: The patient is alert, oriented, appears in no acute distress. HET: Head is normocephalic and atraumatic. Conjunctiva pink. Sclera anicteric. Neck: Supple without lymphadenopathy. Abdomen: Soft, mild tenderness lower abdomen, nondistended with bowel sounds. No guarding or rigidity. Extremities: Normal skin color and turgor. No pedal edema Skin: No rashes, no jaundice Neurological: No focal deficits. Alert and oriented. - Labs CBC & Chem 7: 10/18/22 07:04 10/22/22 06:50 Labs: Abnormal Lab Results - Last 24 Hours (Table) 10/22/22 Range/Units 06:50 Chloride 112 H (96-109) mmol/L Carbon Dioxide 17.3 L (20.0-27.5) mmol/L Anion Gap 9.70 L (10.00-18.00) mmol/L BUN 6.5 L (9.0-27.0) mg/dL BUN/Creatinine Ratio 8.13 L (12.00-20.00) Ratio Microbiology - Last 24 Hours (Table) 10/17/22 16:25 Stool Culture - Final Stool Assessment and Plan (1) Colitis Narrative/Plan: 42-year-old female brought in with abdominal pain diarrhea nausea and vomiting had CT abdomen showing wall thickening in the sigmoid colon suggesting possible colitis. Unclear etiology however likely infectious colitis in the setting of leukocytosis, fevers and chills, nausea and vomiting. Symptoms started improving however after eating she started having more diarrhea. Nonbloody. stool cultures were sent and negative. C. diff has been ordered and negative. Continue symptomatic and supportive care. No plans of endoscopic evaluation. Symptoms improving, advance diet as tolerated Status: Acute Code(s): K52.9 - NONINFECTIVE GASTROENTERITIS AND COLITIS, UNSPECIFIED SNOMED Code(s): 32532767 (2) Abdominal pain Status: Acute Code(s): R10.9 - UNSPECIFIED ABDOMINAL PAIN SNOMED Code(s): 46618946 Plan: 1. Continue symptomatic and supportive care 2. Advance diet as tolerated 3. Protonix 40 mg daily for GI prophylaxis next 4. Continue Flagyl and Rocephin for 5 days 5. Antiemetics as needed 6. C. diff ordered 7. No plans at this time for colonoscopy. Recommend outpatient follow-up and possible colonoscopy in 4-6 weeks. This consultation, we will continue to follow. Dr. Wyatt Damico I agree with the dictator's note, documented as a scribe by Danita Leung.
== END 2022-10-22 12:40 | disposition home or self-care (01) | DRG 249 ==
LOC: EC 12:19 → 6NMEDSUR 14:21 → OBSVTOIN 14:21 → 6NMEDSUR 14:47
PROVIDERS: ADMIT Student in an Organized Health Care Education/Training Program; ATTEND Student in an Organized Health Care Education/Training Program
DX: A09 Infectious gastroenteritis and colitis, unspecified (principal); E83.51 Hypocalcemia; C50.911 Malignant neoplasm of unspecified site of right female breast; E87.6 Hypokalemia; R73.9 Hyperglycemia, unspecified; D25.9 Leiomyoma of uterus, unspecified; R63.0 Anorexia; Z68.28 Body mass index [BMI] 28.0-28.9, adult; R00.1 Bradycardia, unspecified; K58.9 Irritable bowel syndrome, unspecified; K57.30 Diverticulosis of large intestine without perforation or abscess without bleeding; N83.201 Unspecified ovarian cyst, right side; N20.0 Calculus of kidney; F41.9 Anxiety disorder, unspecified; Z88.6 Allergy status to analgesic agent; Z87.11 Personal history of peptic ulcer disease; Z87.442 Personal history of urinary calculi; Z87.19 Personal history of other diseases of the digestive system
CPT/HCPCS: 36415; 74177; 76856; 80048; 80053; 81003; 83690; 83735; 84702; 85025; 87045; 87046; 87324; 93005; 96361; 96374; 99285

== ENCOUNTER → 2022-10-24 | Outpatient (CLI) | payer OTHER ==
--- NOTE | 2022-10-27 05:43 | PE ---
EXAMINATION TYPE: PET CT fusion skull to thigh DATE OF EXAM: 10/24/2022 COMPARISON: Most recent CT abdomen and pelvis October 17, 2022. MRI bilateral breasts May 28, 2022 HISTORY: Upper outer quadrant right breast neoplasm diagnosed June 2022. History of left-sided b reast cancer diagnosed April 2022 . Patient denies prior or current treatment. TECHNIQUE: Following the intravenous administration of 9.88 mCi of F-18 FDG, whole body images are p erformed from the skull base to the midthigh. Images are reviewed on the computer in the coronal, ax ial, and sagittal planes. Reconstructed rotating images are created on independent workstation and r eviewed on the computer. A localization and attenuation correction CT is performed in conjunction w ith the PET scan. Blood glucose level equals 108 SCAN: Initial Scan FINDINGS: SKULL BASE AND NECK: No areas of abnormal hypermetabolic uptake. CHEST, MEDIASTINUM, AND HILAR REGION: Surgical changes right axillary region with right-sided clips. No suspicious increased hypermetabolic uptake in either breast or either axilla. No areas of abnormal hypermetabolic uptake. Surgical clips medial left breast. ABDOMEN AND PELVIS: Normal excretion. No areas of abnormal hypermetabolic uptake. OSSEOUS STRUCTURES: No areas of abnormal hypermetabolic uptake. OTHER CT: Prominent lobulated retroverted uterus suggests underlying fibroids. IMPRESSION: No abnormal hypermetabolic uptake to suggest active malignancy.
== END | disposition home or self-care (01) ==
LOC: RADPETMAIN 12:45
PROVIDERS: ATTEND Radiology Radiation Oncology
DX: C50.411 Malignant neoplasm of upper-outer quadrant of right female breast (principal); Z17.0 Estrogen receptor positive status [ER+]
CPT/HCPCS: 78815; A9552

== ENCOUNTER → 2022-11-04 | Outpatient (CLI) | payer SELFPAY | END | disposition home or self-care (01) | LOC: LABWHC1 08:48 | PROVIDERS: ATTEND Radiology Radiation Oncology | DX: C50.411 Malignant neoplasm of upper-outer quadrant of right female breast (principal); Z17.0 Estrogen receptor positive status [ER+] | CPT/HCPCS: 81025 ==

== ENCOUNTER 2022-12-19 13:28 | Day surgery (SDC) | payer OTHER ==
[~2022-12-19 13:28] MED LIST changes: -ACETAMINOPHEN TAB 500 MG TAB PO PRN; -ALPRAZolam 0.5 MG TAB PO PRN; -DEXAMETHASONE SOD PHOSPHATE 4 MG/ML 1 ML VIAL IV ONE; -HEPARIN SODIUM,PORCINE/PF 5,000 UNIT/0.5 ML SYRINGE SQ PRN; -HYDROmorphone 0.5 MG/0.5 ML SYRINGE IVP PRN; -LIDOCAINE 1% (10MG/ML) FOR IV START INTRADERMA PRN; -METOCLOPRAMIDE 5 MG/ML 2 ML VIAL IVP PRN; -ONDANSETRON 4 MG/2 ML VIAL IVP ONE; -Pre Op ABX Message 1 EACH MISC MISCELLANE ONE
[2022-12-19 14:09] VITALS: TEMP 97.5
[2022-12-19] MEDS ORDERED: PROPOFOL 10 MG/ML 20 ML VIAL IV ONE (14:50)
--- NOTE | 2022-12-19 15:07 | P.PCN ---
Date of Procedure: 12/19/22 Procedure(s) Performed: BRIEF HISTORY: Patient is a 42-year-old pleasant white female scheduled for an elective colonoscopy as a part of evaluation of chronic diarrhea for the last several months duration. PROCEDURE PERFORMED: Colonoscopy with random biopsy. PREOPERATIVE DIAGNOSIS: Chronic diarrhea. IV sedation per Anesthesia. PROCEDURE: After informed consent was obtained, the patient, was brought into the endoscopy unit. IV sedation was administered by Anesthesia under continuous monitoring. Digital rectal examination was normal. Initially the Olympus CF-160 flexible video colonoscope was then inserted in the rectum, gradually advanced into the cecum without any difficulty. Careful examination was performed as the scope was gradually being withdrawn. Ileocecal valve and the appendiceal orifice were visualized and appeared normal. Prep was excellent. Mucosa of the cecum, ascending colon, transverse colon, descending colon, sigmoid colon, and rectum appeared normal. Random biopsies were done from ascending and descending colon to rule out microscopic/collagenous colitis. Retroflexion was performed in the rectum and no lesions were seen. The patient tolerated the procedure well. IMPRESSION: Normal-appearing colon from rectum to cecum with no evidence of colorectal neoplasia . RECOMMENDATIONS: Findings of this examination were discussed with the patient as well as a family. She was advised to follow with the biopsy results. She'll be seen in office in 3-4 weeks.. In the meantime she will continue with dicyclomine as needed.
[2022-12-19 15:40] VITALS: RESP 16
[2022-12-19 15:52] VITALS: BP 110/62; PULSE 62
== END 2022-12-19 16:09 | disposition home or self-care (01) ==
LOC: ORWHC2ENDO 13:28
PROVIDERS: ATTEND Internal Medicine Gastroenterology
DX: K52.9 Noninfective gastroenteritis and colitis, unspecified (principal); F41.9 Anxiety disorder, unspecified; Z79.899 Other long term (current) drug therapy
CPT/HCPCS: 81025; 45380; J2704; 88305

== ENCOUNTER → 2022-12-31 | Outpatient (CLI) | payer OTHER ==
--- NOTE | 2022-12-31 14:47 | MM ---
Reason for Exam: Follow-up at short interval from prior study. Last screening mammogram was performed 8 month(s) ago. Patient History: Menarche at age 11. First Full-Term at age 16. Patient has history of breast feeding. Breast cancer, left, age 41. Breast cancer, right, age 42. Previous LCIS pathology result at age 42. 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 07/22/2022, Lumpectomy on the Left side. 07/22/2022, Lumpectomy on the Right side. 07/22/2022, High risk MG pre op needle loc LT on the left side. 07/22/2022, MG pre op loc each addl LT on the Left side. 07/22/2022, Malignant MG pre op needle loc RT on the right side. 07/01/2022, High risk MG stereo VAD BX LT on the left side. 06/17/2022, High risk US biopsy breast VAD RT on the right side. 06/17/2022, US biopsy breast add'l VAD RT on the Right side. 04/28/2022, Malignant MG stereo VAD BX LT on the left side. Mother had breast cancer at or over age 50. Prior Study Comparison: 04/07/2022 Bilateral MG screening mammo w CAD, [facility]. 04/11/2022 Left MG work up mamm w CAD LT, [facility]. 05/28/2022 Bilateral MR breast bilat wo/w con, [facility]. 06/17/2022 Right US breast limited RT, [facility]. 06/17/2022 Right MG diagnostic mammo RT wo CAD, [facility]. Tissue Density: The breast tissue is heterogeneously dense. This may lower the sensitivity of mammography. Findings: Analyzed By CAD. Stable postprocedural changes to the bilateral breasts. No new suspicious masses, calcifications or distortions. Overall Assessment: Benign, BI-RAD 2 Management: Diagnostic Mammogram of both breasts in 6 months. Results were given to the patient verbally at the time of exam. Patient should continue monthly self-breast exams. A clinical breast exam by your physician is recommended on an annual basis. This exam should not preclude additional follow-up of suspicious palpable abnormalities. Note on Anuja scores and lifetime risk: 1. A Anuja score greater than 3% is considered moderate risk. If this is the case, consider specialist referral to assess eligibility for a risk reducing agent. 2. If overall lifetime risk for the development of breast cancer is 20% or higher, the patient may qualify for future screening with alternating mammogram and breast MRI. Electronically signed and approved by: Grover Guthrie DO
== END | disposition home or self-care (01) ==
LOC: RADMAMWWP 11:00
PROVIDERS: ATTEND Surgery
DX: R92.8 Other abnormal and inconclusive findings on diagnostic imaging of breast (principal); Z85.3 Personal history of malignant neoplasm of breast
CPT/HCPCS: 77066; G0279; 77062

== ENCOUNTER → 2023-01-13 | Outpatient (CLI) | payer OTHER | END | disposition home or self-care (01) | LOC: LABWHC1 16:22 | PROVIDERS: ATTEND Radiology Radiation Oncology | DX: C50.411 Malignant neoplasm of upper-outer quadrant of right female breast (principal); Z17.0 Estrogen receptor positive status [ER+] | CPT/HCPCS: 81025 ==

== ENCOUNTER → 2023-10-21 | Outpatient (CLI) | payer OTHER ==
--- NOTE | 2023-10-21 15:13 | MM ---
Reason for Exam: Follow-up at short interval from prior study. Last screening mammogram was performed 10 month(s) ago. Patient History: Menarche at age 11. First Full-Term at age 16. Patient has history of breast feeding. Breast cancer, left, age 41. Breast cancer, right, age 42. Previous LCIS pathology result at age 42. 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 07/22/2022, Lumpectomy on the Left side. 07/22/2022, Lumpectomy on the Right side. 07/22/2022, High risk MG pre op needle loc LT on the left side. 07/22/2022, MG pre op loc each addl LT on the Left side. 07/22/2022, Malignant MG pre op needle loc RT on the right side. 07/01/2022, High risk MG stereo VAD BX LT on the left side. 06/17/2022, High risk US biopsy breast VAD RT on the right side. 06/17/2022, US biopsy breast add'l VAD RT on the Right side. 04/28/2022, Malignant MG stereo VAD BX LT on the left side. Mother had breast cancer at or over age 50. Last menstrual period: 10/20/2023 Prior Study Comparison: 04/07/2022 Bilateral MG screening mammo w CAD, [facility]. 04/11/2022 Left MG work up mamm w CAD LT, [facility]. 05/28/2022 Bilateral MR breast bilat wo/w con, [facility]. 06/17/2022 Right US breast limited RT, [facility]. 06/17/2022 Right MG diagnostic mammo RT wo CAD, [facility]. 12/31/2022 Bilateral MG 3D diag mammo w/cad LAITH, [facility]. Tissue Density: The breasts are extremely dense, which lowers the sensitivity of mammography. Findings: Analyzed By CAD. The pattern is symmetrical. Surgical clips are present within the posterior left breast. The mid right breast surgical clips are present. Surgical skin markers are utilized. No suspicious groups of microcalcifications, spiculated or lobular masses, architectural distortion or other secondary signs of malignancy are mammographically apparent. Overall Assessment: Benign, BI-RAD 2 Management: Diagnostic Mammogram of both breasts in 1 year. A negative mammogram report should not preclude additional follow up of suspicious palpable abnormalities. Patient should continue monthly self breast exam. A clinical breast exam by your physician is recommended on an annual basis and results should be correlated with mammographic findings. Note on Anuja scores and lifetime risk: 1. A Anuja score greater than 3% is considered moderate risk. If this is the case, consider specialist referral to assess eligibility for a risk reducing agent. 2. If overall lifetime risk for the development of breast cancer is 20% or higher, the patient may qualify for future screening with alternating mammogram and breast MRI. Electronically signed and approved by: Matt Bryant D.O. Radiologis
== END | disposition home or self-care (01) ==
LOC: RADMAMWWP 14:32
PROVIDERS: ATTEND Surgery
DX: R92.343 Mammographic extreme density, bilateral breasts (principal); Z80.3 Family history of malignant neoplasm of breast
CPT/HCPCS: 77066; G0279; 77062

== ENCOUNTER → 2024-03-24 | Outpatient (CLI) | payer OTHER ==
[2024-03-24 18:31] LABS: Basophils # (A) 0.05 X 10*3/uL (0.00-0.10); Basophils % (A) 0.8 %; Eosinophils # (A) 0.08 X 10*3/uL (0.04-0.35); Eosinophils % (A) 1.3 %; HCT 42.3 % (37.2-46.3); HGB 14.4 g/dL (12.0-15.0); Lymphocytes # (A) 1.42 X 10*3/uL (0.90-5.00); Lymphocytes % (A) 23.7 %; MCH 32.6 pg (27.0-32.0); MCV 95.7 FL (80.0-97.0); Mean Platelet Volume 11.1 FL (9.5-12.2); Monocytes # (A) 0.53 X 10*3/uL (0.20-1.00); Monocytes % (A) 8.8 %; NRBC Per 100 WBC 0 X 10*3/uL (0.00-0.01); Neutrophils # (A) 3.89 X 10*3/uL (1.80-7.70); Neutrophils % (A) 65.1 %; Platelet Count 214 X 10*3/uL (140-440); RBC 4.42 X 10*6/uL (4.10-5.20); RDW 11.9 % (11.5-14.5); WBC 5.99 X 10*3/uL (4.50-10.00)
[2024-03-24 18:39] LABS: Blood Urea Nitrogen 12.3 mg/dL (9.0-27.0); Carbon Dioxide 21.9 mmol/L (21.6-31.8); Chloride 104 mmol/L (96-109); Glucose 86 mg/dL (70-110); Potassium 4.5 mmol/L (3.5-5.5); Sodium 137 mmol/L (135-145)
== END | disposition home or self-care (01) ==
LOC: LABPAT 13:46
PROVIDERS: ATTEND Obstetrics & Gynecology Obstetrics
DX: Z01.812 Encounter for preprocedural laboratory examination (principal)
CPT/HCPCS: 80051; 82565; 82947; 84520; 85025; 86850; 86900; 86901; 87086

== ENCOUNTER → 2024-05-09 | Outpatient (CLI) | payer OTHER ==
[2024-05-10 02:33] LABS: Basophils # (A) 0.05 X 10*3/uL (0.00-0.10); Basophils % (A) 0.7 %; Eosinophils # (A) 0.03 X 10*3/uL (0.04-0.35); Eosinophils % (A) 0.4 %; HCT 44.6 % (37.2-46.3); HGB 14.7 g/dL (12.0-15.0); Lymphocytes # (A) 1.39 X 10*3/uL (0.90-5.00); Lymphocytes % (A) 20.2 %; MCH 32.7 pg (27.0-32.0); MCV 99.3 FL (80.0-97.0); Mean Platelet Volume 11.9 FL (9.5-12.2); Monocytes # (A) 0.32 X 10*3/uL (0.20-1.00); Monocytes % (A) 4.7 %; NRBC Per 100 WBC 0 X 10*3/uL (0.00-0.01); Neutrophils # (A) 5.07 X 10*3/uL (1.80-7.70); Neutrophils % (A) 73.7 %; Platelet Count 233 X 10*3/uL (140-440); RBC 4.49 X 10*6/uL (4.10-5.20); RDW 12.1 % (11.5-14.5); WBC 6.88 X 10*3/uL (4.50-10.00)
[2024-05-10 02:58] LABS: Blood Urea Nitrogen 8.8 mg/dL (9.0-27.0); Carbon Dioxide 25.1 mmol/L (21.6-31.8); Chloride 102 mmol/L (96-109); Glucose 98 mg/dL (70-110); Potassium 4.2 mmol/L (3.5-5.5); Sodium 140 mmol/L (135-145)
== END | disposition home or self-care (01) ==
LOC: LABPAT 15:48
PROVIDERS: ATTEND Obstetrics & Gynecology Obstetrics
DX: Z01.818 Encounter for other preprocedural examination (principal)
CPT/HCPCS: 80051; 82565; 82947; 84520; 85025; 86850; 86900; 86901; 87086

== ENCOUNTER 2024-05-12 07:58 | Day surgery (SDC) | payer OTHER ==
[~2024-05-12 07:58] MED LIST changes: -LACTATED RINGERS 1,000 ML IV SCH; +LIDOCAINE 1% (10MG/ML) FOR IV START INTRADERMA PRN; +METOCLOPRAMIDE 5 MG/ML 2 ML VIAL IVP PRN
[2024-05-12] MEDS: IV FLUID CONTINUATION 1,000 ML IV ONE ×2 (08:23→12:35)
[2024-05-12] MEDS: LACTATED RINGERS 1,000 ML IV SCH (08:37)
[2024-05-12] MEDS: fentaNYL (PF) 50 MCG/ML 2 ML AMP IVP ONE ×2 (08:46→14:53)
[2024-05-12] MEDS: MIDAZOLAM 2 MG/2 ML VIAL IV ONE (08:46)
[2024-05-12] MEDS: DEXAMETHASONE SOD PHOSPHATE 4 MG/ML 1 ML VIAL IV ONE (08:50)
[2024-05-12] MEDS: ONDANSETRON 4 MG/2 ML VIAL IVP ONE (08:50)
--- NOTE | 2024-05-12 09:01 | P.ANPRN ---
Procedure Note - Anesthesia - Nerve Block Performed Bilateral Erector Spinae Single Time Out Performed: Yes Date of Procedure: 05/12/24 Procedure Start Time: 08:45 Procedure Stop Time: 08:53 Location of Patient: PreOp Indication: Acute Post-Operative Pain, Requested by Surgeon Sedation Type: Sedate with meaningful contact maintained Preparation: Sterile Prep Position: Prone Needle Types: Pajunk Needle Gauge: 21 Ultrasound used to visualize needle placement: Yes Ultrasound used to observe medication spread: Yes Injectate: 0.5% Ropivacaine (see comment for volume) (20 ml + 10 ml NS + 4 mg Dexamethasone per side) Blood Aspirated: No Pain Paresthesia on Injection Noted: No Resistance on Injection: Normal Image Stored and Saved: Yes Events: Uneventful and Well Tolerated
[2024-05-12] MEDS: BUPIVACAINE (PF) 0.25% 30 ML VIAL SQ ONE ×2 (11:15→11:58)
[2024-05-12] MEDS ORDERED: ONDANSETRON 4 MG/2 ML VIAL IVP PRN (11:58)
[2024-05-12] MEDS ORDERED: diphenhydrAMINE 25 MG CAP PO PRN (11:58)
[2024-05-12] MEDS ORDERED: SIMETHICONE 80 MG CHEWABLE PO PRN (11:58)
[2024-05-12] MEDS ORDERED: ALPRAZolam 0.5 MG TAB PO PRN (12:00)
--- NOTE | 2024-05-12 12:07 | P.OP ---
Date of Procedure: 05/12/24 Preoperative Diagnosis: Dysfunctional uterine bleeding Uterine fibroids History of breast cancer Postoperative Diagnosis: Same Procedure(s) Performed: Robotic assisted vaginal hysterectomy, right salpingo-oophorectomy, left salpingectomy, diagnostic cystoscopy Anesthesia: HAL Surgeon: Yakelin Vazquez Boiler Welder #1: Consuelo Vernon Estimated Blood Loss (ml): 50 IV fluids (ml): 600 Urine output (ml): 100 Pathology: other (Uterus cervix bilateral fallopian tubes right ovary) Condition: stable Disposition: PACU Indications for Procedure: Heavy menstrual bleeding, dysfunctional in nature, pelvic discomfort, uterine fibroids, history of breast cancer Operative Findings: Enlarged globular uterus, right ovary noted to be adherent to the right pelvic sidewall, normal left ovary, fibroma is appreciated. Description of Procedure: Patient was taken back to the operating suite where general anesthesia was obtained without difficulty by the anesthesia department. She was prepped and draped in the normal sterile fashion in the dorsolithotomy position. A weighted speculum was placed in the posterior vaginal vault and the anterior lip of the cervix was visualized and grasped with a single-tooth tenaculum. A Yarbrough catheter was placed under sterile technique. The endocervical canal was then serially dilated and a Celaton uterine manipulator was advanced into the uterus as a means to manipulate the uterus throughout the procedure. The balloon was insufflated with air and the cervical cap was placed snugly against the cervix. All instruments were removed from the patient's vaginal vault. Attention was then turned to the patient's abdomen, approximately 2 fingerbreadths above the umbilicus a small skin incision is made. Through this incision the Veress needle was placed. Once the Veress needle was deemed to be in the appropriate position with a drop of CO2 pressure with the insufflation of CO2 gas CO2 insufflation was allowed to occur. At this time an 8 mm trocar and sleeve with the laparoscope in place was placed through the skin incision toward the pneumoperitoneum. The above-noted findings are visualized. The additional port sites are now placed at 10 cm lateral and 3 cm inferior to the midline port these are 8 mm ports and placed under direct visualization. In the left upper quadrant a 12 mm skin incision is made and a 12 mm trocar and sleeve is placed under direct visualization. The da Keegan is undocked in the usual fashion, and the right operative arm the monopolar scissors, left operative arm bipolar forceps is placed. Attention then turned to the patient's left fallopian tube which was elevated coagulated and transected to the level of the uterine ovarian ligament. The utero-ovarian ligament is coagulated distally proximally and divided. The right round ligament is visualized coagulated and transected. The bladder flap from the right was then created using sharp and blunt dissection. The ascending branch of the uterine artery from the right was visualized coagulated and transected any accessory vessels were then coagulated and transected. Hemostasis was noted. Attention was then turned to the patient's right fallopian tube which was elevated the mesosalpinx was coagulated and transected to the level of the utero-ovarian ligament. The utero-ovarian ligament was visualized coagulated distally and proximally and divided. Hemostasis was noted. The round ligament was then coagulated distally proximally and divided. The bladder flap from the right was then created using sharp and blunt dissection. At this point a Ray-Audrey was inserted into the pelvis to dissect the bladder farther away from the operating field. After dissection the Ray-Audrey was removed. The ascending branch of the uterine artery from the right was visualized coagulated and transected. Any accessory vessels were coagulated and transected. At this time the only remaining attachment was a vaginal attachment therefore colpotomy incision was made in a circumferential fashion. The uterus bilateral fallopian tubes and right ovary were removed through the vaginal cuff. The pelvis was then copiously irrigated. Hemostasis was appreciated in the vaginal cuff. The vaginal cuff was then closed with multiple [id number] sutures of 0 Vicryl. Approximately 5 sutures were used to obtain closure. The pelvis was then irrigated copiously hemostasis was appreciated Surgicel powder was placed along the vaginal cuff and right adnexal pedicle. The right ureter was visualized, and noted to be pulsating in a normal fashion. At this time all instruments were removed from the patient's abdomen, the da Keegan is undocked in the usual fashion. Attention then turned to the patient's Yarbrough catheter which was noted to be draining clear yellow urine. The catheter was removed and a cystoscopy was performed. The cystoscope was placed through the urethra toward the bladder bladder bubble was appreciated complete survey revealed an intact cavity. Both ureteral orifices were noted to be spilling clear yellow urine. The cystoscope was removed and the Yarbrough catheter was replaced without difficulty. On inspection the patient patient's vaginal vault no lacerations were appreciated from removal of the uterus. Attention then turned the patient's abdomen over the skin incisions were closed with 4-0 Vicryl in a subcuticular fashion, Steri-Strips and sterile dressings were applied. All counts were noted be correct x 2. Patient tolerated procedure well and was taken to the recovery awake in stable condition.
[2024-05-12] MEDS: HYDROmorphone 0.5 MG/0.5 ML SYRINGE IVP PRN (12:21)
[2024-05-12] MEDS: MEPERIDINE 50 MG/ML SYRINGE IVP STA (12:40)
[2024-05-12] MEDS: KETOROLAC 15 MG/ML 1 ML VIAL IVP PRN (13:30)
[2024-05-12] MEDS: droPERidol 5 MG/2 ML VIAL IVP ONE (13:39)
[2024-05-12] MEDS: ALPRAZolam 0.25 MG TAB PO PRN (14:05)
[2024-05-12 14:45] VITALS: RESP 16
[2024-05-12] MEDS: ACETAMINOPHEN TAB 500 MG TAB PO SCH (17:41)
[2024-05-12] MEDS: SENNOSIDES-DOCUSATE SODIUM 1 EACH TAB PO SCH (19:46)
[2024-05-12 20:05] VITALS: TEMP 97
[2024-05-13] MEDS: ALPRAZolam 0.5 MG TAB PO PRN (05:53)
[2024-05-13 06:09] VITALS: BP 113/63; PULSE 62
[2024-05-13 06:58] LABS: Basophils % (A) 0 %; Eosinophils % (A) 0 %; HCT 38.1 % (34.0-46.0); HGB 12.8 gm/dL (11.4-16.0); Lymphocytes # (A) 1.6 k/uL (1.0-4.8); Lymphocytes % (A) 11 %; MCH 32.4 pg (25.0-35.0); MCHC 33.5 g/dL (31.0-37.0); MCV 96.8 fL (80.0-100.0); Mean Platelet Volume 9.2; Monocytes # (A) 0.7 k/uL (0-1.0); Monocytes % (A) 5 %; Neutrophils # (A) 11.9 k/uL (1.3-7.7); Neutrophils % (A) 83 %; Platelet Count 190 k/uL (150-450); RBC 3.93 m/uL (3.80-5.40); RDW 12.1 % (11.5-15.5); WBC 14.4 k/uL (3.8-10.6)
--- NOTE | 2024-05-13 09:34 | P.DS ---
Providers Date of admission: 44-year-old female that presented to [facility] for scheduled robotic assisted vaginal hysterectomy secondary to enlarged uterus, uterine fibroids, dysfunctional uterine bleeding, right lower quadrant pain. Patient did request right oophorectomy secondary to discomfort. For full details on this patient p dori see the history and physical. Patient was taken back to the operating room where robotic assisted vaginal hysterectomy, right salpingo-oophorectomy, left salpingectomy, diagnostic cystoscopy was performed without difficulty. For full details on the surgery please see the dictated operative report. Patient's postoperative course has been essentially uncomplicated. In this postoperative day #1 she is ambulating without difficulty. Her pain is moderately well-controlled with oxy every 6 hours, patient does take Tylenol 3 routinely for chronic pain at home. Awaiting spontaneous void. Expected date of discharge: 05/13/24 Attending physician: Yakelin Vazquez Primary care physician: Belinda Bowden, NPC - Discharge Diagnosis(es) (1) Uterine fibroid Current Visit: Yes Status: Acute (2) Bulky or enlarged uterus Current Visit: Yes Status: Acute (3) Dysfunctional uterine bleeding Current Visit: Yes Status: Acute (4) Breast cancer Current Visit: Yes Status: Acute Hospital Course: 44-year-old female that presented to [facility] for scheduled robotic assisted vaginal hysterectomy with bilateral salpingectomy, diagnostic cystoscopy. Patient has a known history of uterine fibroids enlarged uterus and heavy menstrual bleeding. Patient in addition is noting increasing right lower quadrant pain and is requesting removal of her right ovary. For full details in this patient please see the dictated history and physical. Patient was taken back to the operating room where procedure was completed without difficulty, right ovary was noted to be adherent to the pelvic sidewall therefore it was removed without difficulty. For full details on the surgery please see the dictated operative report. Patient's postoperative course has been essentially uncomplicated. Patient is a chronic pain patient and takes Tylenol 3 daily. Patient has some moderately well-controlled pain with oxy for pain control postoperatively. Patient is ambulating without difficulty. Awaiting spontaneou s void status post Yarbrough removal this morning. Overall patient states she is doing well. She is anxious for discharge home later today. Patient Condition at Discharge: Good Plan - Discharge Summary Discharge Rx Participant: Yes New Discharge Prescriptions: No Action Acetaminophen-Codeine 300-30mg [Tylenol w/codeine #3] 1 tab PO Q6H PRN PRN Reason: Pain ALPRAZolam [Xanax] 0.5 mg PO TID PRN PRN Reason: Anxiety Discharge Medication List Acetaminophen-Codeine 300-30mg [Tylenol w/codeine #3] 1 tab PO Q6H PRN 04/11/22 [History] ALPRAZolam [Xanax] 0.5 mg PO TID PRN 06/23/22 [History] Follow up Appointment(s)/Referral(s): Yakelin Vazquez DO [Doctor of Osteopathic Medicine] - 2 Weeks Patient Instructions/Handouts: Laparoscopic Hysterectomy (DC), Laparoscopic Hysterectomy (GEN) Activity/Diet/Wound Care/Special Instructions: No tub baths or intercourse until 8 weeks postoperatively. Patient is call the office to make a routine postoperative visit at 2 weeks. Postoperative care is discussed with patient, bleeding precautions are reviewed. Pain control is discussed and will plan Oxy as postop pain control. Discharge Disposition: HOME SELF-CARE
== END 2024-05-13 13:10 | disposition home or self-care (01) ==
LOC: OR 07:58 → 4FBP 12:31 → OR 05-13 13:10
PROVIDERS: ATTEND Obstetrics & Gynecology Obstetrics
DX: D25.1 Intramural leiomyoma of uterus (principal); G89.18 Other acute postprocedural pain; G89.29 Other chronic pain; Z85.3 Personal history of malignant neoplasm of breast; Z86.018 Personal history of other benign neoplasm
CPT/HCPCS: 81025; 64999; 58552; J2250; J1100; J2175; J0690; J2405; J3010; J1885; J1171; J0665; 85025; 88307

== ENCOUNTER → 2024-10-31 | Outpatient (CLI) | payer OTHER ==
--- NOTE | 2024-10-31 11:16 | MM ---
Reason for Exam: Clinical finding. Last screening mammogram was performed 12 month(s) ago. Patient History: Menarche at age 11. First Full-Term at age 16. Patient has history of breast feeding. Breast cancer, left, age 41. Breast cancer, right, age 42. Previous LCIS pathology result at age 42. 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 07/22/2022, Lumpectomy on the Left side. 07/22/2022, Lumpectomy on the Right side. 07/22/2022, High risk MG pre op needle loc LT on the left side. 07/22/2022, MG pre op loc each addl LT on the Left side. 07/22/2022, Malignant MG pre op needle loc RT on the right side. 07/01/2022, High risk MG stereo VAD BX LT on the left side. 06/17/2022, High risk US biopsy breast VAD RT on the right side. 06/17/2022, US biopsy breast add'l VAD RT on the Right side. 04/28/2022, Malignant MG stereo VAD BX LT on the left side. 2021, Bilateral Radiation Therapy. Mother had breast cancer at or over age 50. Tissue Density: The breasts are heterogeneously dense, which may obscure small masses. Findings: Analyzed By CAD. Cluster of surgical clips in the left breast is redemonstrated posteriorly. Additional surgical clips in the right breast are again seen. Surgical clips in the right axillary redemonstrated. Biopsy clip in right breast again seen. No suspicious new mass or worrisome group of microcalcification in either breast. Overall Assessment: Incomplete: need additional imaging evaluation, BI-RAD 0 Management: Diagnostic Breast Ultrasound of the right breast. Targeted ultrasound right breast due to focal pain.. Results were given to the patient verbally at the time of exam. Patient should continue monthly self-breast exams. A clinical breast exam by your physician is recommended on an annual basis. This exam should not preclude additional follow-up of suspicious palpable abnormalities. Note on Anuja scores and lifetime risk: 1. A Anuja score greater than 3% is considered moderate risk. If this is the case, consider specialist referral to assess eligibility for a risk reducing agent. 2. If overall lifetime risk for the development of breast cancer is 20% or higher, the patient may qualify for future screening with alternating mammogram and breast MRI. [facility], , 10/31/2024 11:13 AM. Electronically signed and approved by: Alvarez Cho M.D.
--- NOTE | 2024-10-31 11:48 | USB ---
Reason for Exam: Clinical finding. Patient History: Menarche at age 11. First Full-Term at age 16. Right ovary removed at age 43. Hysterectomy at age 43. Patient has history of breast feeding. Breast cancer, left, age 41. Breast cancer, right, age 42. Previous LCIS pathology result at age 42. 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 07/22/2022, Lumpectomy on the Left side. 07/22/2022, Lumpectomy on the Right side. 07/22/2022, High risk MG pre op needle loc LT on the left side. 07/22/2022, MG pre op loc each addl LT on the Left side. 07/22/2022, Malignant MG pre op needle loc RT on the right side. 07/01/2022, High risk MG stereo VAD BX LT on the left side. 06/17/2022, High risk US biopsy breast VAD RT on the right side. 06/17/2022, US biopsy breast add'l VAD RT on the Right side. 04/28/2022, Malignant MG stereo VAD BX LT on the left side. 2021, Bilateral Radiation Therapy. Mother had breast cancer, age 55. Technique: Method: Targeted. Doppler: Color. Patient Position: Supine. Prior Study Comparison: 06/17/2022 Right MG diagnostic mammo RT wo CAD, [facility]. 12/31/2022 Bilateral MG 3D diag mammo w/cad [facility], [facility]. 10/21/2023 Bilateral MG 3D diag mammo w/cad [facility], [facility]. Findings: The upper section of the breast of the right breast, the axilla of the right breast and the retroareolar of the right breast were scanned. Electronically signed and approved by: Alvraez Cho M.D.
== END | disposition home or self-care (01) ==
LOC: RADMAMWWP 10:16
PROVIDERS: ATTEND Surgery
DX: R92.333 Mammographic heterogeneous density, bilateral breasts (principal); N64.4 Mastodynia; Z85.3 Personal history of malignant neoplasm of breast; Z80.3 Family history of malignant neoplasm of breast
CPT/HCPCS: 77066; 76642; G0279; 77062